=== PATIENT | female | born 1935 | race Caucasian/White ===

== ENCOUNTER → 2019-05-22 10:41 | Outpatient (BNVA) | payer MEDICARE, BC, SELFPAY | PROVIDERS: Family Provider Electrodiagnostic Medicine; PCP Electrodiagnostic Medicine; Visit Provider Anesthesiology | DX: M51.36 Other intervertebral disc degeneration, lumbar region (principal); Z79.891 Long term (current) use of opiate analgesic | CPT/HCPCS: 99213; 99214 ==

== ENCOUNTER → 2019-10-29 11:18 | Outpatient (BNVA) | payer MEDICARE, BC, SELFPAY | PROVIDERS: Family Provider Electrodiagnostic Medicine; PCP Electrodiagnostic Medicine; Visit Provider Nurse Practitioner | DX: M51.36 Other intervertebral disc degeneration, lumbar region (principal); Z79.891 Long term (current) use of opiate analgesic | CPT/HCPCS: 99213 ==

== ENCOUNTER → 2020-02-10 10:57 | Outpatient (BNVA) | payer MEDICARE, BC, SELFPAY | PROVIDERS: Family Provider Electrodiagnostic Medicine; PCP Electrodiagnostic Medicine; Visit Provider Electrodiagnostic Medicine | DX: Z20.828 Contact with and (suspected) exposure to other viral communicable diseases (principal) | CPT/HCPCS: 87635 ==

== ENCOUNTER → 2020-02-20 14:06 | Outpatient (BNVA) | payer MEDICARE, BC, SELFPAY | PROVIDERS: Family Provider Electrodiagnostic Medicine; PCP Electrodiagnostic Medicine; Visit Provider Anesthesiology | DX: M51.36 Other intervertebral disc degeneration, lumbar region (principal); M54.9 Dorsalgia, unspecified; Z79.891 Long term (current) use of opiate analgesic | CPT/HCPCS: 99212; 99214 ==

== ENCOUNTER 2020-03-30 15:52 | Outpatient (CLI) | payer MEDICARE, BC, SELFPAY ==
--- NOTE | 2020-03-30 16:10 | XR_ITS ---
WS: [id number] XR hip LT 2-3V wo/w pel* [id number] REASON FOR EXAM: LEFT HIP PAIN FINDINGS: No fracture or dislocation. No focal bony lesion. Significant spurring of the acetabulum and femoral head with narrowing of the joint space in the left hip. This has the same appearance as the left hip on a anime designer film from the CT of the abdomen 016. XR/XR hip LT 2-3V wo/w pel* [id number] IMPRESSION: Osteoarthropathy of the left hip as above.
== END 2020-03-30 15:53 | disposition home or self-care (01) ==
PROVIDERS: PCP Electrodiagnostic Medicine; Visit Provider Electrodiagnostic Medicine
DX: M16.12 Unilateral primary osteoarthritis, left hip (principal)
CPT/HCPCS: 73502

== ENCOUNTER → 2020-05-26 13:16 | Outpatient (BNVA) | payer MEDICARE, BC, SELFPAY | PROVIDERS: PCP Electrodiagnostic Medicine; Visit Provider Anesthesiology | DX: M51.36 Other intervertebral disc degeneration, lumbar region (principal); M54.9 Dorsalgia, unspecified; Z79.891 Long term (current) use of opiate analgesic | CPT/HCPCS: 99213 ==

== ENCOUNTER 2020-07-27 14:48 | Outpatient (CLI) | payer MEDICARE, BC, SELFPAY ==
--- NOTE | 2020-07-27 14:54 | CT_ITS ---
WS: [id number] CT HEAD NONCONTRAST HISTORY: MEMORY LOSS, HYPERTENSION DIABETES MELLITUS TECHNIQUE: Contiguous axial imaging performed through the brain in 2.5 mm imaging. Bone and soft tiss ue windows. All CT scans at [facility] use at least one of these dose optimization techniq ues: automated exposure control; mA and/or kV adjustment per patient size (includes targeted exams wh ere dose is matched to clinical indication); or iterative reconstruction. DLP: 992.04 mGycm COMPARISON: 03/13/2017 No acute intracranial hemorrhage, midline shift or mass effect. Mild atrophy is symmetric. Mild bilateral chronic microangiopathic ischemic disease. Small lacunar in farcts in the anterior capsules. Ventricles: Normal size with no hydrocephalus. Paranasal sinuses: As visualized are clear. Mastoid air cells: Well pneumatized. Calvarium and scalp: Skull is intact with no soft tissue edema or swelling. CT/CT head wo con* [id number] IMPRESSION: 1. No acute intracranial hemorrhage or edema. 2. Mild atrophy and mild chronic microvascular ischemic disease. Mild progress ion of chronic ischemic changes since 2017.
== END 2020-07-27 14:49 | disposition home or self-care (01) ==
LOC: RADWPI 14:50
PROVIDERS: PCP Electrodiagnostic Medicine; Visit Provider Electrodiagnostic Medicine
DX: R41.3 Other amnesia (principal); I10 Essential (primary) hypertension; E11.9 Type 2 diabetes mellitus without complications; I67.82 Cerebral ischemia; G31.9 Degenerative disease of nervous system, unspecified
CPT/HCPCS: 70450

== ENCOUNTER → 2020-07-28 13:11 | Outpatient (BNVA) | payer MEDICARE, BC, SELFPAY | PROVIDERS: PCP Electrodiagnostic Medicine; Visit Provider Nurse Practitioner | DX: M51.36 Other intervertebral disc degeneration, lumbar region (principal); Z79.891 Long term (current) use of opiate analgesic | CPT/HCPCS: 99213 ==

== ENCOUNTER 2020-10-17 09:02 | Emergency (ER) | payer MEDICARE, BC, SELFPAY ==
[2020-10-17 09:06] VITALS: BP 154/87; PULSE 89; RESP 14; TEMP 36.5; O2SAT 96; BMI 38.2
--- NOTE | 2020-10-17 09:14 | ED_ITS ---
HPI - Nausea/Vomiting/Diarrhea General: Chief complaint: Nausea/Vomiting/Diarrhea Stated complaint: NAUSEA Time Seen by Provider: 10/17/20 09:08 History of Present Illness: HPI Narrative: Patient arrives via ambulance with complaint of nausea since yesterday. Patient denies vomiting or bladder problems. Says she has had some diarrhea. She also states her sugars been doing okay. Denies fever chills or other recent illness. MD elicited complaint: nausea Onset (ago): day(s) Description of diarrhea: semi-solid Associated nausea: Yes Associated abdominal pain: No Exacerbating factors: other (The smell of food makes her feel sick) Associated symtoms: Reports no associated symptoms and nausea; Denies anxiety, change in vision, chest pain or headache(s) Review of Systems Const: Denies: fever(s), chills or body aches Eyes: Denies: change in vision or blurry vision ENMT: Denies: throat pain or nasal congestion Card: Denies: chest pain or dyspnea on exertion Resp: Denies: dyspnea, productive cough or non-productive cough GI: Reports: nausea Musc: Denies: extremity pain Skin/Breast: Denies: rash Neuro: Denies: headache(s) Psych: Denies: anxiety or depression [place]ton/Lymph: Denies: easy bruising PFSH ED PFSH: Medical History (Updated 10/17/20 @ 10:33 by RAFAEL Gutierrez) Anticoagulation adequate with anticoagulant therapy DDD (degenerative disc disease), lumbar Diabetes Dyslipidemia Encounter for long-term opiate analgesic use Essential hypertension half-way (current) use of opiate analgesic Morbid obesity Surgical History History of appendectomy History of back surgery History of carpal tunnel surgery of left wrist History of cholecystectomy History of hysterectomy History of knee replacement History of lobectomy of lung History of nephrectomy Family History Other CAD (coronary artery disease) Cancer Diabetes Stroke Social History (Updated 07/28/20 @ 13:20 by Jonna Schroeder LPN) Smoking and tobacco status: former smoker Second hand smoke exposure: No Alcohol intake: current Alcohol intake frequency: holidays/special occasions only Household members: spouse Marital status: History of recent travel: No Physical Exam Const: COMMON NORMALS: no acute distress, average body habitus and patient oriented x3 HENMT: COMMON NORMALS: normocephalic HEAD & SCALP: normal to inspection and normocephalic FACE & SINUS: normal facial exam Eye: COMMON NORMALS: conjunctivae normal GENERAL EYE: appearance normal, both eyes and all related structures CONJUNCTIVA: Yes conjunctivae normal Neck/C-Spine: COMMON NORMALS: no JVD Chest: COMMONS NORMALS: normal inspection of the chest Resp: COMMON NORMALS: normal respiratory effort and clear to auscultation bilaterally AUSCULTATION: clear to auscultation bilaterally Cardio: COMMON NORMALS: no JVD, regular rate and regular rhythm RATE: regular rate RHYTHM: regular rhythm OTHER: 1+ nonpitting edema worse on the right than the left lower extremity GI: COMMON NORMALS: Normal to inspection, nondistended, normoactive bowel sounds present Extremity: COMMON NORMALS: normal to inspection and full ROM Neuro: COMMON NORMALS: patient oriented x3 Course Vital Signs: Vital signs: Vital Signs Temperature 97.7 F 10/17/20 09:06 Pulse Rate 76 10/17/20 11:04 Respiratory Rate 18 10/17/20 11:04 Blood Pressure 160/85 10/17/20 11:04 Pulse Oximetry 91 10/17/20 11:04 MDM - Nausea/Vomiting/Diarrhea MDM Narrative: Medical decision making narrative: Patient arrived via ambulance complain nausea x1 day. Labs negative except shows mild UTI. Patient responded to Zofran and fluids. Patient discharged home follow-up with her doctor on Monday as scheduled. Lab Data: Labs: Lab Results 10/17/20 10/17/20 10/17/20 Range/Units 09:19 09:19 09:52 WBC 7.5 (4.0-10.0) 10^3/ uL RBC 4.85 (4.1-5.3) 10^6/u L Hgb 14.6 (11.5-15.3) g/dL Hct 45.4 (37.0-47.0) % MCV 93.6 (81-99) fL MCH 30.1 (28.0-34.0) pg MCHC 32.2 (30.0-36.0) g/dL RDW 13.4 (12.1-15.1) % Plt Count 209 (130-400) 10^3/c mm MPV 10.7 H (7.4-10.4) fL Neut % (Auto) 69.3 % Lymph % (Auto) 19.8 % [place] % (Auto) 7.9 % Eos % (Auto) 2.0 % Baso % (Auto) 0.7 % Neut # (Auto) 5.17 (1.8-7.7) 10^3/u L Lymph # (Auto) 1.5 (0.8-4.8) 10^3/u L [place] # (Auto) 0.6 (0.2-0.9) 10^3/u L Eos # (Auto) 0.2 (0.0-0.8) 10^3/u L Baso # (Auto) 0.1 (0.0-0.1) 10^3/u L Nucleated RBC % (a uto) 0 % Nucleated RBCs # 0.0 /100WBC Sodium 142 (136-145) mmol/L Potassium 4.2 (3.5-5.1) mmol/L Chloride 102 (98-107) mmol/L Carbon Dioxide 30 H (22-29) mmol/L Anion Gap 14.2 (5-19) BUN 22 (8-23) mg/dL Creatinine 1.0 H (0.5-0.9) mg/dL GFR Calculation Not Reportable Glucose 120 H (65-115) mg/dL Calculated Osmolal ity 299 H (285-295) mOsm/k g Calcium 10.0 (8.5-10.5) mg/dL Total Bilirubin 1.0 (0.15-1.2) mg/dL AST 27 (0-32) U/L ALT 10 (0-33) U/L Alkaline Phosphata se 120 H (35-105) IU/L Total Protein 6.9 (6.6-8.7) g/dL Albumin 4.2 (3.5-5.2) g/dL Globulin 2.7 (1.3-4.6) g/dL Lipase 17 (13-60) U/L Urine Color Straw (Yellow) Urine Appearance Clear (CLEAR) Urine pH 7 (5-7) Ur Specific Gravit y 1.005 (1.005-1.030) Urine Protein Neg (Negative) Urine Glucose (UA) Norm (Normal) Urine Ketones 1+ H (Negative) Urine Blood Neg (Negative) Urine Nitrate Negative (Negative) Urine Bilirubin Neg (Negative) Urine Urobilinogen Norm (Negative) mg/dL Ur Leukocyte Le ase 1+ H (Negative) Urine RBC None (0-2) /hpf Urine WBC 5-10 H (0-5) /hpf Ur Squamous Epith Cells 0-4 H (0-5) /hpf Amorphous Sediment Not Reportable Urine Bacteria 2+ H (NONE) /hpf Discharge Plan Discharge Patient Disposition: Home Clinical Impression: Acute UTI Condition: Stable Prescriptions: New Zofran 4 mg tablet 4 mg PO Q8H 3 Days Qty: 9 RF: 0 Macrobid 100 mg capsule 100 mg PO BID 5 Days Qty: 10 RF: 0 No Action furosemide 20 mg tablet 20 mg PO BID Qty: 180 RF: 3 amlodipine 10 mg tablet 10 mg PO QDAY RF: 0 levothyroxine [Synthroid] 100 mcg tablet 100 mcg PO QDAY RF: 0 losartan 50 mg tablet 50 mg PO QDAY RF: 0 multivitamin [Daily Multi-Vitamin] Tablet 1 tab PO QAM RF: 0 glucosamine sulfate [Glucosamine] 500 mg tablet 500 mg PO BID RF: 0 docusate sodium [Stool Softener] 100 mg capsule 100 mg PO BID RF: 0 albuterol sulfate [Proventil HFA] 90 mcg/actuation HFA aerosol inhaler 1 inh INHALATION ONCE PRNRF: 0 pregabalin [Lyrica] 75 mg capsule 75 mg PO BID 30 Days Qty: 60 RF: 2 tramadol 50 mg tablet 50 mg PO TID PRN (Reason: pain) 30 Days Qty: 90 RF: 2 metoprolol tartrate 50 mg tablet 50 mg PO BID Qty: 180 RF: 3 Eliquis 5 mg tablet 5 mg PO BID Qty: 180 RF: 3 Discharge Orders: Discharge ED (Routine); Ordered 10/17/20 Ordered By: Hany Alaniz Referrals: Deondre Lowery DO [Primary Care Provider] - Discharge Diet: Usual diet Discharge Activity: Increase activity as tolerated Patient Instructions: Urinary Tract Infection in Women (ED) Activity Restrictions/Additional Instructions: Follow-up with medical provider as directed. Take medications as prescribed. Return to the ER or your medical provider if condition worsens. Please read and understand discharge instructions. If any questions ask please. Coding Level of Care Code ED Box Printing Machine Operator for Chg Fwd Exam Comprehensive
[2020-10-17 09:53] LABS: Basophils # 0.1 10^3/uL (0.0-0.1); Basophils % 0.7 %; Eosinophils # 0.2 10^3/uL (0.0-0.8); Hematocrit 45.4 % (37.0-47.0); Hemoglobin 14.6 g/dL (11.5-15.3); Lymphocytes # 1.5 10^3/uL (0.8-4.8); Lymphocytes % 19.8 %; Mean Corpuscular HGB Conc 32.2 g/dL (30.0-36.0); Mean Corpuscular Hemoglobin 30.1 pg (28.0-34.0); Mean Corpuscular Volume 93.6 fL (81-99); Mean Platelet Volume 10.7 fL (7.4-10.4); Monocytes # 0.6 10^3/uL (0.2-0.9); Monocytes % 7.9 %; Neutrophils # 5.17 10^3/uL (1.8-7.7); Neutrophils % 69.3 %; Nucleated Red Blood Cells % 0 %; Platelet Count 209 10^3/cmm (130-400); Red Blood Count 4.85 10^6/uL (4.1-5.3); Red Cell Distribution Width 13.4 % (12.1-15.1); White Blood Count 7.5 10^3/uL (4.0-10.0)
[2020-10-17 10:08] LABS: Specific Gravity, Urine 1.005 (1.005-1.030); Urine Appearance Clear (CLEAR); Urine Color Straw (Yellow); pH Urine 7 (5-7)
[2020-10-17 10:09] LABS: Add Urine Culture? Yes; Add Urine Microscopic? YES; Bacteria Urine 2+ /hpf; Bilirubin Urine Neg (Negative); Blood Urine Neg (Negative); Glucose Urine UA Norm (Normal); Ketones Urine 1+ (Negative); Leukocyte Esterase Urine 1+ (Negative); Nitrate Urine Negative (Negative); Protein Urine Neg (Negative); Squamous Epithelial Cell Urine 0-4 /hpf (0-5); Urobilinogen Urine Norm (Negative)
[2020-10-17 10:14] LABS: Alanine Aminotransferase 10 U/L (0-33); Albumin Level 4.2 g/dL (3.5-5.2); Alkaline Phosphatase 120 IU/L (35-105); Anion Gap 14.2 (5-19); Aspartate Amino Transferase 27 U/L (0-32); Blood Urea Nitrogen 22 mg/dL (8-23); Carbon Dioxide 30 mmol/L (22-29); Chloride 102 mmol/L (98-107); Globulin 2.7 g/dL (1.3-4.6); Glucose 120 mg/dL (65-115); Lipase 17 U/L (13-60); Osmolality Calculated 299 mOsm/kg (285-295); Potassium 4.2 mmol/L (3.5-5.1); Sodium 142 mmol/L (136-145); Total Protein 6.9 g/dL (6.6-8.7)
[2020-10-17] MEDS: sodium chloride 0.9% 500 ML IV (10:28)
[2020-10-17] MEDS: ondansetron 2 mg/ML SDV 2 mL 4 MG IVP (10:28)
[2020-10-17] MEDS: nitrofurantoin SR (BID) 100 mg Capsule PO (10:30)
[2020-10-17 10:31] VITALS: BP 160/85; PULSE 73; RESP 18; O2SAT 94
[2020-10-17 11:04] VITALS: BP 160/85; PULSE 76; RESP 18; O2SAT 91
== END 2020-10-17 11:05 | disposition home or self-care (01) ==
PROVIDERS: Emergency Provider Nurse Practitioner Family; PCP Electrodiagnostic Medicine
DX: N39.0 Urinary tract infection, site not specified (principal); Z79.01 Long term (current) use of anticoagulants; E11.9 Type 2 diabetes mellitus without complications; E78.5 Hyperlipidemia, unspecified; I10 Essential (primary) hypertension; Z87.891 Personal history of nicotine dependence
CPT/HCPCS: 80053; 81001; 83690; 85025; 87077; 87086; 87186; 96361; 96374; 99283; J2405; J7040

== ENCOUNTER → 2020-10-22 09:51 | Outpatient (BNVA) | payer MEDICARE, BC, SELFPAY | PROVIDERS: PCP Electrodiagnostic Medicine; Visit Provider Nurse Practitioner | DX: M51.36 Other intervertebral disc degeneration, lumbar region (principal); M54.9 Dorsalgia, unspecified; E66.01 Morbid (severe) obesity due to excess calories; Z79.891 Long term (current) use of opiate analgesic | CPT/HCPCS: 99213 ==

== ENCOUNTER → 2021-01-07 09:03 | Outpatient (BNVA) | payer MEDICARE, BC, SELFPAY | PROVIDERS: PCP Electrodiagnostic Medicine; Visit Provider Anesthesiology | DX: M54.41 Lumbago with sciatica, right side (principal); M51.36 Other intervertebral disc degeneration, lumbar region; Z79.891 Long term (current) use of opiate analgesic | CPT/HCPCS: 99213 ==

== ENCOUNTER → 2021-01-13 12:52 | Outpatient (BNVA) | payer MEDICARE, BC, SELFPAY | PROVIDERS: PCP Electrodiagnostic Medicine; Referring Provider Electrodiagnostic Medicine; Visit Provider Specialist | DX: G31.84 Mild cognitive impairment of uncertain or unknown etiology (principal); E11.40 Type 2 diabetes mellitus with diabetic neuropathy, unspecified; M51.36 Other intervertebral disc degeneration, lumbar region; Z87.891 Personal history of nicotine dependence | CPT/HCPCS: 96116; 99204 ==

== ENCOUNTER → 2021-11-04 14:56 | Outpatient (BNVA) | payer MEDICARE, BC, SELFPAY | PROVIDERS: PCP Electrodiagnostic Medicine; Visit Provider Internal Medicine | DX: I48.91 Unspecified atrial fibrillation (principal); E11.9 Type 2 diabetes mellitus without complications; E78.5 Hyperlipidemia, unspecified; Z79.01 Long term (current) use of anticoagulants; R06.00 Dyspnea, unspecified; Z79.84 Long term (current) use of oral hypoglycemic drugs | CPT/HCPCS: 99213; 99214 ==

== ENCOUNTER 2022-03-29 14:20 | Inpatient (IN) | payer MEDICARE, BC, SELFPAY ==
[2022-03-29] VITALS (10 sets, daily range): BP systolic 120–143; BP diastolic 47–93; PULSE 50–74; RESP 13–20; TEMP 36.6–37.5; O2SAT 96–100; BMI 35.7
--- NOTE | 2022-03-29 14:37 | ECG_ITS ---
[facility] Test Date: 2022-03-29 Pat Name: Whit Orozco Department: Room: Gender: Female L[place]eller: : 1935 Requested By: Phoenix Hurd Order Number: [id number] Shante MD: Lashon Pantoja M.D. Measurements Intervals [place] Rate: 63 P: 0 ME: 0 QRS: 230 QRSD: 93 T: 65 QT: 413 QTc: 424 Interpretive Statements ATRIAL FIBRILLATION POSSIBLE RIGHT VENTRICULAR HYPERTROPHY POSSIBLE ANTERIOR MYOCARDIAL INFARCTION , PROBABLY OLD Compared to ECG 05/26/2018 16:21:13 No significant changes Electronically Signed On 03-29-2022 18:49:08 SAND TEMPERER by Lashon Pantoja M.D. [id number]
--- NOTE | 2022-03-29 14:37 | XR_ITS ---
WS: [id number] Portable AP upright chest, 03/29/2022 Clinical Data: Chest pain Comparison: Portable chest, 05/26/2018 Findings: The heart is enlarged and the pulmonary vascularity is congested. There are opacities overl alisha the right lung which may represent pleural fluid and/or atelectasis. There is opacification at t he right lung base which probably represents pleural fluid. There may also be a left pleural effusion . No pneumothorax is noted. There is a calcification overlying the right humeral head possibly an enc hondroma or bone infarct. There are surgical clips overlying the left hilum and also the left upper q uadrant. Monitor leads are on the chest wall. XR/XR chest 1V portable [id number] Impression: Cardiomegaly with bilateral pleural effusions and pulmonary vascular congestion most consistent with congestive heart failure.
--- NOTE | 2022-03-29 14:46 | W.ED.SOB ---
HPI - SOB/Dyspnea General: Chief Complaint: Shortness of Breath/Dyspnea Stated Complaint: Sebastián sent for chest pain Time Seen by Provider: 03/29/22 14:36 Source: patient Mode of arrival: ambulatory History of Present Illness: HPI Narrative: 86-year-old female who presents emergency room with episodes of chest discomfort. She focuses more on the fact that she is significantly short of breath. Patient has had previous lung resections because of mets from renal cell CA. She is normally on 2 L by nasal cannula and when she arrived here she was hypoxic with rebreather she began to do better we are able to titrate her back down to nasal cannula at 4 L. 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) Onset (ago): day(s) (3) Timing: constant Severity: moderate Exacerbating factors: nothing Relieving factors: nothing Known history of: congestive heart failure Associated symptoms: Reports chest congestion, chest pain and orthopnea (Chronic); Deny abdominal pain, cough, diaphoresis, dizziness, extremity pain, fever(s), hemoptysis, lightheadedness, myalgias, nausea, palpitations, paresthesias, polydipsia, polyuria, sense of impending doom, syncope or vomiting Treatment prior to arrival: none Review of Systems Const: Reports: fatigue; Denies: fever(s), chills, malaise or diaphoresis ENMT: Denies: throat pain, ear or mastoid pain, nasal discharge or nasal congestion Card: Reports: chest pain, edema, swelling of feet/ankles and orthopnea (Chronic); Denies: palpitations, lightheadedness or syncope Resp: Reports: dyspnea, non-productive cough and chest congestion; Denies: hemoptysis GI: Denies: abdominal pain, nausea or vomiting : Denies: flank pain, difficulty voiding, dysuria, urinary frequency or urinary urgency Musc: Denies: neck pain, back pain or extremity pain Skin/Breast: Denies: rash or pruritus Neuro: Denies: dizziness Endo: Denies: polyuria or polydipsia PFS ED PFSH: Medical History (Updated 04/05/22 @ 06:04 by Phoenix Cotto DO) Anticoagulation adequate with anticoagulant therapy DDD (degenerative disc disease), lumbar Diabetes Dyslipidemia Encounter for long-term opiate analgesic use Essential hypertension 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 Morbid obesity Surgical History History of appendectomy History of back surgery History of carpal tunnel surgery of left wrist History of cholecystectomy History of hysterectomy History of knee replacement History of lobectomy of lung History of nephrectomy Family History Other CAD (coronary artery disease) Cancer Diabetes Stroke Social History Smoking and tobacco status: former smoker Second hand smoke exposure: No Alcohol intake: current Alcohol intake frequency: holidays/special occasions only Household members: spouse Marital status: History of recent travel: No Physical Exam Const: GENERAL APPEARANCE: cooperative and comfortable ORIENTATION/CONSCIOUSNESS: Yes awake, Yes oriented to person, Yes oriented to place and Yes oriented to time HENMT: COMMON NORMALS: normocephalic, atraumatic and hearing grossly normal bilaterally HEAD & SCALP: normocephalic and atraumatic Resp: COMMON NORMALS: normal respiratory effort, No retractions and No use of accessory muscles AUSCULTATION: diminished lung sounds Cardio: COMMON NORMALS: regular rate, regular rhythm and No murmurs present (Cardio) RATE: regular rate RHYTHM: regular rhythm GI: COMMON NORMALS: Soft to palpation and No hepatosplenomegaly present AUSCULTATION: Yes normoactive bowel sounds PALPATION: Yes Soft to palpation, No Tenderness to palpation present (GI), No Guarding due to palpation present (GI) and Yes No hepatosplenomegaly present Extremity: COMMON NORMALS: normal to inspection, capillary refill normal, no clubbing, cyanosis or edema, no calf tenderness and no pedal edema Neuro: SENSORIUM/ORIENTATION: Yes oriented to person, Yes oriented to place and Yes oriented to time Skin: COMMON NORMALS: no rashes or lesions noted GENERAL SKIN EXAM: no rashes or lesions noted Course Vital Signs: Vital signs: Vital Signs Temperature 98.1 F 04/05/22 03:40 Pulse Rate 70 04/05/22 03:40 Respiratory Rate 18 04/05/22 03:40 Blood Pressure 115/64 04/05/22 03:40 Pulse Oximetry 92 04/05/22 03:40 Oxygen Delivery Me thod 04/05/22 02:41 Oxygen Flow Rate 2 04/05/22 02:41 Fraction of Inspir ed Oxygen 25 03/31/22 05:25 MDM - SOB/Dyspnea Medical Decision Making Labs imaging and EKG reviewed no acute EKG changes. Decompensated congestive heart failure with hypercapnia. Acute on chronic kidney injury as well. Patient has been started on BiPAP. Discussed with hospitalist orders written. Medical Records I reviewed the patient's medical records. Lab Data I reviewed the patient's lab results. 03/29/22 14:27 03/29/22 14:27 Labs/Radiology: Radiology Impressions Chest X-Ray 04/04/22 05:00 IMPRESSION: Mildly improved exam from 3 days ago. Laboratory Results WBC 7.4 10^3/uL (4.0-10.0) 03/29/22 14:27 RBC 3.86 10^6/uL (4.1-5.3) L 03/29/22 14:27 Hgb 11.6 g/dL (11.5-15.3) 03/29/22 14:27 Hct 38.3 % (37.0-47.0) 03/29/22 14:27 MCV 99.2 fl (81-99) H 03/29/22 14:27 MCH 30.1 pg (28.0-34.0) 03/29/22 14:27 MCHC 30.3 g/dL (30.0-36.0) 03/29/22 14:27 RDW 14.6 % (12.1-15.1) 03/29/22 14:27 Plt Count 193 10^3/cmm (130-400) 03/29/22 14:27 MPV 12.0 fL (7.4-10.4) H 03/29/22 14:27 Neut % (Auto) 69.5 % 03/29/22 14:27 Lymph % (Auto) 16.7 % 03/29/22 14:27 [place] % (Auto) 10.4 % 03/29/22 14:27 Eos % (Auto) 2.4 % 03/29/22 14:27 Baso % (Auto) 0.5 % 03/29/22 14:27 Neut # (Auto) 5.11 10^3/uL (1.8-7.7) 03/29/22 14:27 Lymph # (Auto) 1.2 10^3/uL (0.8-4.8) 03/29/22 14:27 [place] # (Auto) 0.8 10^3/uL (0.2-0.9) 03/29/22 14:27 Eos # (Auto) 0.2 10^3/uL (0.0-0.8) 03/29/22 14:27 Baso # (Auto) 0.0 10^3/uL (0.0-0.1) 03/29/22 14:27 Nucleated RBC % (auto) 0 % 03/29/22 14: Nucleated RBCs # 0.0 /100WBC 03/29/22 14:27 Specimen Type Arterial 03/29/22 16:58 Sample Site Radial, left 03/29/22 16:58 ABG pH 7.33 (7.35-7.45) L 03/29/22 16:58 ABG pCO2 77.1 mmHg (35-45) H* 03/29/22 16:58 ABG pO2 84.2 mmHg (80.0-100.0) 03/29/22 16:58 ABG HCO3 40.3 mmol/L (22-26) H 03/29/22 16:58 ABG O2 Saturation 96.7 03/29/22 16:58 ABG Base Excess 11.7 mmol/L (-2.0-2.0) H 03/29/22 16:58 Peyman Test Pos 03/29/22 16:58 A-a O2 Gradient 14.0 mmHg (5-10) H 03/29/22 16:58 Hematocrit 33.6 % (37-47) L 03/29/22 16:58 Hgb O2 Saturation 94.2 % (95-100) L 03/29/22 16:58 Carboxyhemoglobin 1.5 %THgb (0.4-20.1) 03/29/22 16:58 Methemoglobin 1.1 % (0.4-1.5) 03/29/22 16:58 Total Hemoglobin 11.0 g/dL (12-16) L 03/29/22 16:58 Sodium 145.0 mmol/L (131-143) H 03/29/22 16:58 Potassium 3.4 mmol/L (3.5-5.0) L 03/29/22 16:58 Glucose 105.0 mg/dL (70-115) 03/29/22 16:58 Ionized Calcium 1.2 mmol/L (1.1-1.4) 03/29/22 16:58 O2 Delivery Device Bipap 03/29/22 16:58 O2 Liters/Min 4.0 % 03/29/22 15:20 FiO2 40.0 % 03/29/22 16:58 Metal Tester ID Gd 03/29/22 16:58 Sodium 144 mmol/L (136-145) 03/29/22 14:27 Potassium 4.0 mmol/L (3.5-5.1) 03/29/22 14:27 Chloride 97 mmol/L (98-107) L 03/29/22 14:27 Carbon Dioxide 36 mmol/L (22-29) H 03/29/22 14:27 Anion Gap 15.0 (5-19) 03/29/22 14:27 BUN 22 mg/dL (8-23) 03/29/22 14:27 Creatinine 1.2 mg/dL (0.5-0.9) H 03/29/22 14:27 GFR Calculation Not Reportable 03/29/22 14:27 Glucose 111 mg/dL (65-115) 03/29/22 14:27 Calculated Osmolality 302 mOsm/kg (285-295) H 03/29/22 14:27 Calcium 9.8 mg/dL (8.5-10.5) 03/29/22 14:27 Total Bilirubin 0.7 mg/dL (0.15-1.2) 03/29/22 14:27 AST 21 U/L (0-32) 03/29/22 14:27 ALT 9 U/L (0-33) 03/29/22 14:27 Alkaline Phosphatase 101 U/L (35-105) 03/29/22 14:27 Troponin T Baseline 31 ng/L (0-10) H 03/29/22 14:27 Troponin T 120 Minute 23.31 ng/L (0-10) H 03/29/22 16:50 Delta Troponin T -7.69 ABS# (0-10) L 03/29/22 16:50 NT-Pro-B Natriuret Pep 7924 pg/mL (0-450) H 03/29/22 14:27 Total Protein 6.9 g/dL (6.6-8.7) 03/29/22 14:27 Albumin 4.2 g/dL (3.5-5.2) 03/29/22 14:27 Globulin 2.7 g/dL (1.3-4.6) 03/29/22 14:27 Critical Care Time Critical Care Time: Critical Care Time: Yes Total Critical Care Time: 40 Attestation: The high probability of a clinically significant, sudden or life threatening deterioration of the patient's cardiovascular respiratory system(s) required my full and direct attention, intervention and personal management. The critical care time is as shown. This time is in addition to time spent performing any reported procedures but includes the following: [x] Data and vital sign review and interpretation [x] Patient assessment, examination and intervention [x] Documentation [x] Medication orders and management Discharge Plan Discharge Patient Disposition: Admitted As Inpatient Admit Provider: London Xiao Clinical Impression: Respiratory failure with hypoxia and hypercapnia, Congestive heart failure, Essential hypertension, Morbid obesity, Anticoagulation adequate with anticoagulant therapy, Diabetes Condition: Stable Coding Level of Care Code ED Superintendent Fish Hatchery for David Fwbritany Exam Detailed
[2022-03-29 14:54] LABS: Basophils % 0.5 %; Eosinophils # 0.2 10^3/uL (0.0-0.8); Eosinophils % 2.4 %; Hematocrit 38.3 % (37.0-47.0); Hemoglobin 11.6 g/dL (11.5-15.3); Lymphocytes # 1.2 10^3/uL (0.8-4.8); Lymphocytes % 16.7 %; Mean Corpuscular HGB Conc 30.3 g/dL (30.0-36.0); Mean Corpuscular Hemoglobin 30.1 pg (28.0-34.0); Mean Corpuscular Volume 99.2 fl (81-99); Monocytes # 0.8 10^3/uL (0.2-0.9); Monocytes % 10.4 %; Neutrophils # 5.11 10^3/uL (1.8-7.7); Neutrophils % 69.5 %; Nucleated Red Blood Cells % 0 %; Platelet Count 193 10^3/cmm (130-400); Red Blood Count 3.86 10^6/uL (4.1-5.3); Red Cell Distribution Width 14.6 % (12.1-15.1); White Blood Count 7.4 10^3/uL (4.0-10.0)
--- NOTE | 2022-03-29 15:06 | PC.PHAR ---
pts daughter verified pts medications-rx filled 03/06/22 90d/s for eliquis 5mg daily from pts daughter states pt just takes 5mg qam-
[2022-03-29 15:18] LABS: Troponin(5th) Baseline 31 ng/L (0-10)
[2022-03-29 15:32] LABS: ABG PH Result 7.29 (7.35-7.45); Base Excess ABG 9.9 mmol/L (-2.0-2.0); Blood Gas Allen Test Pos; Blood Gas Sample Type Arterial; Carboxyhemoglobin 1.4 %THgb (0.4-20.1); HCO3 ABG 39.6 mmol/L (22-26); Ionized Calcium Level - ABG 1.3 mmol/L (1.1-1.4); Oxygen Saturation ABG 98.3; Potassium Level - ABG 3.4 mmol/L (3.5-5.0); Total Hemoglobin 12.4 g/dL (12-16)
[2022-03-29 15:33] LABS: Blood Gas Sample Site Radial, right
[2022-03-29 15:34] LABS: Alveolar-Arterial Oxygen Gradi 6.4 mmHg (5-10); Blood Gas Operator Identificat MONRO; Oxygen Device NC
[2022-03-29] MEDS: aspirin 81 mg Chew Tablet 324 MG PO (15:45)
[2022-03-29] MEDS: FUROsemide 10 mg/mL SDV 4mL 40 MG IVP (15:47)
[2022-03-29 15:55] LABS: Alanine Aminotransferase 9 U/L (0-33); Albumin Level 4.2 g/dL (3.5-5.2); Alkaline Phosphatase 101 U/L (35-105); Aspartate Amino Transferase 21 U/L (0-32); Blood Urea Nitrogen 22 mg/dL (8-23); Calcium 9.8 mg/dL (8.5-10.5); Carbon Dioxide 36 mmol/L (22-29); Chloride 97 mmol/L (98-107); Globulin 2.7 g/dL (1.3-4.6); Glucose 111 mg/dL (65-115); NT Pro B Type Natriuretic Pept 7924 pg/mL (0-450); Osmolality Calculated 302 mOsm/kg (285-295); Sodium 144 mmol/L (136-145); Total Bilirubin 0.7 mg/dL (0.15-1.2); Total Protein 6.9 g/dL (6.6-8.7)
--- NOTE | 2022-03-29 16:49 | ECG_ITS ---
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 Measurements Intervals [place] Rate: 63 P: 0 [place]: 0 QRS: 251 QRSD: 94 T: 61 QT: 403 QTc: 414 Interpretive Statements ATRIAL FIBRILLATION RIGHT VENTRICULAR HYPERTROPHY POSSIBLE ANTERIOR MYOCARDIAL INFARCTION , PROBABLY OLD Compared to ECG 03/29/2022 15:17:00 No significant changes Electronically Signed On 03-29-2022 18:51:07 RN INTERNAL MEDICINE by Lashon Pantoja M.D. [id number]
[2022-03-29 17:12] LABS: ABG PCO2 77.1 mmHg (35-45); ABG PH Result 7.33 (7.35-7.45); Arterial Blood Gas Hematocrit 33.6 % (37-47); Base Excess ABG 11.7 mmol/L (-2.0-2.0); Blood Gas Allen Test Pos; Blood Gas Operator Identificat GD; Blood Gas Sample Site Radial, left; Blood Gas Sample Type Arterial; Carboxyhemoglobin 1.5 %THgb (0.4-20.1); HCO3 ABG 40.3 mmol/L (22-26); HGB O2 Sat 94.2 % (95-100); Ionized Calcium Level - ABG 1.2 mmol/L (1.1-1.4); Methemoglobin 1.1 % (0.4-1.5); Oxygen Device BIPAP; Oxygen Saturation ABG 96.7; PO2 ABG 84.2 mmHg (80.0-100.0); Potassium Level - ABG 3.4 mmol/L (3.5-5.0)
--- NOTE | 2022-03-29 17:22 | USCV_ITS ---
Whit Orozco Age: 86 Gender: F : 1935 Exam Date: 03/29/2022 17:34 Ordering Phys: London Xiao MD Technologist: PAGE [place] [facility] [place]: SHORTNESS OF BREATH BP: 125 / 64 HR: 66 Rhythm: Atrial fibrillation Technical Quality: Suboptimal MEASUREMENTS (Male / Female) Normal Values 2D ECHO LVOT Diameter 2.0 cm LV Ejection Fraction MOD 2C 70.3 % LV Ejection Fraction 2C AL 73.2 % LA Diameter 3.0 cm LA Width 3.7 cm RA Width 4.0 cm RA Height 5.4 cm Aorta at Sinotubular Diameter 2.3 cm M-MODE Aortic Annulus Diameter 3.2 cm LA Ao Ratio MM 0.9 MV E Point Septal Separation 0.4 cm DOPPLER AV Peak Velocity 121.0 cm/s LVOT Peak Velocity 93.0 cm/s AV Area Cont Eq vti 2.4 cm squared AV Area Cont Eq pk 2.4 cm squared MV Peak Velocity 134.0 cm/s MV Area PHT 4.2 cm squared MV E' Velocity 68.5 cm/s Mitral E to MV E' Ratio 10.5 Mitral E to LV E' Lateral Ratio 10.2 Mitral E to LV E' Septal Ratio 10.8 TR Peak Velocity 278.1 cm/s TR Peak Gradient 30.9 mmHg TR Mean Velocity 263.6 cm/s TR Mean Gradient 30.2 mmHg TR Velocity Time Integral 127.4 cm TV Peak E Velocity 65.0 cm/s Right Atrial Pressure 8.0 mmHg Pulmonary Artery Systolic Pressu 38.9 mmHg PV Peak Velocity 97.0 cm/s RV Acceleration Time 0.1 s RV Ejection Time 0.4 s RV AcT/ET 0.3 FINDINGS Left Ventricle Normal left ventricular size, systolic function and wall thickness, with no regional wall motion abnormalities. Rhythm precludes evaluation of diastolic function. Left ventricular ejection fraction is estimated at 50-55 %. Right Ventricle Normal right ventricular size and systolic function. Mild pulmonary hypertension, RVSP 38.9 mmHg. Right Atrium Moderately increased right atrial size. Left Atrium Moderately increased left atrial size. Mitral Valve Structurally normal mitral valve. Trace mitral valve regurgitation. Aortic Valve Structurally normal trileaflet aortic valve. Trace aortic valve regurgitation. No aortic valve stenosis. Tricuspid Valve Structurally normal tricuspid valve. Trace to mild tricuspid valve regurgitation. Pulmonic Valve Structurally normal pulmonic valve. Trace pulmonary valve regurgitation. Pericardium Normal pericardium without effusion. Aorta Normal ascending aorta dimension. IVC The inferior vena cava appears normal. CONCLUSIONS Normal left ventricular size, systolic function and wall thickness, with no regional wall motion abnormalities. Rhythm precludes evaluation of diastolic function. Left ventricular ejection fraction is estimated at 50-55 %. Normal right ventricular size and systolic function. Mild pulmonary hypertension, RVSP 38.9 mmHg. Moderately increased right atrial size. Moderately increased left atrial size. Structurally normal mitral valve. Trace mitral valve regurgitation. Structurally normal trileaflet aortic valve. Trace aortic valve regurgitation. No aortic valve stenosis. There are no prior echocardiogram studies to compare. Dr. De Alarcon MD (Electronically Signed) Final Date: 30 March 2022 09:34 S
--- NOTE | 2022-03-29 17:32 | P.HP_ITS ---
Providers/Chief Complaint Primary Care Provider: Deondre Lowery DO Chief Complaint: Sebastián sent for chest pain History of Present Illness Whit Orozco is a 86 year old female with past medical history of hypertension and diabetes paroxysmal A. fib dyslipidemia morbid obesity dementia, hypothyroidism, history of lobectomy, was brought in from home with chief complaint of worsening shortness of breath started this Monday, according to the daughter who provided the history over the phone, she has been complaining of difficulty catching breath, was having difficulty with even is speaking a sentence, has been extremely drowsy in the last couple of days, was also complaining of chest pain with inspiration, she denied any fever, chills, cough, nausea vomiting abdominal. X-ray chest done in the ER: Has shown bilateral pulmonary vascular congestion cardiomegaly, bilateral pleural effusion right greater than left EKG has shown A. fib with slow ventricular response Pertinent labs: WBC 7.4, H&H 11/38 PLT : 193 , serum sodium 144 potassium :4 , BUN and serum creatinine: 22/1.2 , Baseline troponin 31 proBNP 7924 ABG : pH 7.29, PCO2 82, PO2 108 , 40% FiO2 , repeat ABG appreciated. Patient received Lasix , aspirin 325 and was placed on BiPAP in the ER. Review of Systems General: Reports: ROS unobtainable due to mental status Medications/Allergies Home Medications Medication Instructions Recorded Confirmed Last Taken Type amlodipine 10 mg tablet 10 mg PO QAM 05/22/19 03/29/22 03/29/22 10:30 History docusate sodium 100 mg capsule 200 mg PO QAM 05/22/19 03/29/22 03/29/22 History (Stool Softener) glucosamine sulfate 500 mg tablet 500 mg PO BID 05/22/19 03/29/22 03/29/22 History (Glucosamine) levothyroxine 100 mcg tablet 100 mcg PO QAM 05/22/19 03/29/22 03/29/22 History (Synthroid) losartan 50 mg tablet 50 mg PO QAM 05/22/19 03/29/22 03/29/22 History multivitamin (Daily Multi-Vitamin 1 tab PO QAM 05/22/19 03/29/22 03/29/22 History tablet) albuterol sulfate 90 mcg/actuation 2 puff inhalation Q4H PRN 10/29/19 03/29/2203/27/22 History aerosol inhaler (ProAir HFA) Shortness Of Breath cholecalciferol (vitamin D3) 50 50 mcg PO QAM 10/22/20 03/29/22 03/29/22 History mcg (2,000 unit) capsule oxygen-air delivery systems 01/07/21 03/29/22 Unknown History hydrocodone 5 mg-acetaminophen 325 1 tab PO Q4H PRN Pain 01/13/21 03/29/22 Unknown History mg tablet furosemide 20 mg tablet 20 mg PO BID #180 tabs 06/16/21 03/29/22 03/29/22 Rx metoprolol tartrate 50 mg tablet 50 mg PO BID #180 tabs 08/11/21 03/29/22 03/29/22 Rx apixaban 5 mg tablet (Eliquis) 5 mg PO QAM 03/29/22 03/29/22 03/29/22 History meloxicam 7.5 mg tablet 7.5 mg PO QAM 03/29/22 03/29/22 03/29/22 History pregabalin 100 mg capsule 100 mg PO BID 03/29/22 03/29/22 03/29/22 History tramadol 50 mg tablet 50 mg PO BID 03/29/22 03/29/22 03/29/22 History Allergies Allergy/AdvReac Type Severity Reaction Status Date / Time No Known Allergies Allergy Verified 03/29/22 14:56 PFSH Acute PFSH: Medical History (Updated 03/29/22 @ 17:52 by London Xiao MD) Anticoagulation adequate with anticoagulant therapy DDD (degenerative disc disease), lumbar Diabetes Dyslipidemia Encounter for long-term opiate analgesic use Essential hypertension 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 Morbid obesity Surgical History History of appendectomy History of back surgery History of carpal tunnel surgery of left wrist History of cholecystectomy History of hysterectomy History of knee replacement History of lobectomy of lung History of nephrectomy Family History Other CAD (coronary artery disease) Cancer Diabetes Stroke Social History Smoking and tobacco status: former smoker Second hand smoke exposure: No Alcohol intake: current Alcohol intake frequency: holidays/special occasions only Household members: spouse Marital status: History of recent travel: No Vitals/I&O/Wt Last Vital Signs Temp 97.8 F 03/29/22 14:31 Pulse 71 03/29/22 16:03 Resp 16 03/29/22 14:36 BP 143/88 03/29/22 14:36 Pulse Ox 96 03/29/22 16:03 O2 Del Method 03/29/22 14:36 O2 Flow Rate 4 03/29/22 14:36 FiO2 40 03/29/22 16:03 Weight last 48 hrs Weight 97.522 kg Physical Exam Narrative: Extremely drowsy, Resp: EFFORT & INSPECTION: Yes symmetric chest movement OTHER: Diminished air entry bilaterally, bilateral basal crackles Cardio: COMMON NORMALS: Peripheral pulses 2+ throughout PERIPHERAL PULSES: Peripheral pulses 2+ throughout OTHER: Irregularly irregular rhythm, S1-S2 variable intensity GI: COMMON NORMALS: Normal to inspection, nondistended, normoactive bowel sounds present, Soft to palpation, non-tender, No hepatosplenomegaly present and no masses AUSCULTATION: Yes normoactive bowel sounds PALPATION: Yes Soft to palpation and Yes No hepatosplenomegaly present RECTAL EXAM: deferred Extremity: NARRATIVE EXTREMITY EXAM: 2+ pitting edema in both the lower EXTR Data 03/29/22 14:27 03/29/22 14:27 A&P Assessment and plan (1) Diabetes: (2) Morbid obesity: (3) Essential hypertension: (4) Decompensated heart failure: (5) Hypothyroidism: (6) Mild cognitive impairment with memory loss: (7) History of atrial fibrillation: (8) Respiratory failure with hypoxia and hypercapnia: (9) Altered mental status: Plan 86 year old female with past medical history of hypertension and diabetes paroxysmal A. fib dyslipidemia morbid obesity dementia, hypothyroidism, history of lobectomy, was brought in from home with chief complaint of worsening shortness of breath started this Monday, according to the daughter who provided the history over the phone, she has been complaining of difficulty catching breath, was having difficulty with even is speaking a sentence, has been extrem jane drowsy in the last couple of days, was also complaining of chest pain with inspiration, she denied any fever, chills, cough, nausea vomiting abdominal. Assessment: Respiratory failure with hypoxia and hypercapnia secondary to decompensated heart failure Decompensated heart failure Acute metabolic encephalopathy secondary to hypercapnia History of hypertension History of diabetes History of paroxysmal atrial fibrillation History of hypothyroidism History of morbid obesity Likely CKD versus KALANI on CKD Plan: Follow 2D echo Blood culture Procalcitonin Follow TSH Monitor intake output charting Monitor daily weight K>4.MG>2 Continue Lasix 60 IV twice daily Continue metoprolol Therapeutic anticoagulation with Lovenox Continue levothyroxine Continue amlodipine LDDSI, monitor fingerstick glucose, Monitor BMP Monitor ABG Monitor x-ray chest Avoid nephrotoxic's CODE STATUS: Full code DVT prophylaxis: On therapeutic Lovenox Attestations Medical Necessity Statement*: Patient needs to be in hospital for management of respiratory failure.Anticipated length of stay greater than 2 midnights Time Spent in Patient Care: Greater than 35 minutes (>than 50% of time spent in counselling and/or direct pt care on unit) . Critical Care Time: The high probability of a clinically significant, sudden or life threatening deterioration of the patient's [] system(s) required my full and direct attention, intervention and personal management. The critical care time is as shown. This time is in addition to time spent performing any reported procedures but includes the following: [x] Data and vital sign review and interpretation [x] Patient assessment, examination and intervention [x] Documentation [x] Medication orders and management Critical Care Time (min): 45 Coding Level of Care Code Acute Karate Instructor for Chg Fwd Exam Expanded Problem Focused Diagnoses Diabetes E11.9 Morbid obesity E66.01 Essential hypertension I10 Decompensated heart failure I50.9 Hypothyroidism E03.9 Mild cognitive impairment with memory loss G31.84 History of atrial fibrillation Z86.79 Respiratory failure with hypoxia and hypercapnia J96.91; J96.92 Altered mental status R41.82
[2022-03-29 17:33] LABS: Troponin 5 2HR 23.31 ng/L (0-10)
[2022-03-29 17:42] LABS: Troponin 5 2HR Delta -7.69 ABS# (0-10)
[2022-03-29 21:33] LABS: Troponin 5 6HR 27.46 ng/L (0-10); Troponin 5 6HR Delta -3.54 ng/L (0-12)
--- NOTE | 2022-03-29 22:28 | ECG_ITS ---
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 Measurements Intervals [place] Rate: 74 P: 0 MA: 0 QRS: -38 QRSD: 92 T: 37 QT: 391 QTc: 435 Interpretive Statements ATRIAL FIBRILLATION LEFT AXIS DEVIATION [QRS AXIS < -30] PATTERN CONSISTENT WITH PULMONARY DISEASE Compared to ECG 03/29/2022 16:49:54 Left-axis deviation now present Right ventricular hypertrophy no longer present Myocardial infarct finding no longer present Electronically Signed On 03-30-2022 16:17:53 GRAIN I FARMWORKER by De Alarcon M.D. [id number]
[2022-03-29 23:56] LABS: Glucose Point of Care 44 mg/dL (70-110)
[2022-03-30] VITALS (98 sets, daily range): BP systolic 93–129; BP diastolic 46–67; PULSE 0–121; RESP 12–24; TEMP 36.6–37.4; O2SAT 83–100
[2022-03-30 01:58] LABS: Glucose Point of Care 110 mg/dL (70-110)
[2022-03-30] MEDS: ipratropium-albuterol 3 mL Neb INHALATION ×4 (03:11→20:30)
[2022-03-30 04:22] LABS: ABG PH Result 7.46 (7.35-7.45); Alveolar-Arterial Oxygen Gradi 11.1 mmHg (5-10); Arterial Blood Gas Hematocrit 34.3 % (37-47); Base Excess ABG 16.2 mmol/L (-2.0-2.0); Blood Gas Allen Test Pos; Blood Gas Operator Identificat WALCI; Blood Gas Sample Site Radial, left; Blood Gas Sample Type Arterial; Carboxyhemoglobin 1.2 %THgb (0.4-20.1); HCO3 ABG 42.6 mmol/L (22-26); HGB O2 Sat 96.3 % (95-100); Ionized Calcium Level - ABG 1.2 mmol/L (1.1-1.4); Oxygen Device BIPAP; Oxygen Saturation ABG 98.5; Potassium Level - ABG 3.1 mmol/L (3.5-5.0); Total Hemoglobin 11.2 g/dL (12-16)
[2022-03-30 04:37] LABS: Basophils % 0.5 %; Eosinophils # 0.2 10^3/uL (0.0-0.8); Eosinophils % 3.1 %; Hematocrit 36.8 % (37.0-47.0); Hemoglobin 11.2 g/dL (11.5-15.3); Lymphocytes # 1.2 10^3/uL (0.8-4.8); Lymphocytes % 18.3 %; Mean Corpuscular HGB Conc 30.4 g/dL (30.0-36.0); Mean Corpuscular Hemoglobin 30.3 pg (28.0-34.0); Mean Corpuscular Volume 99.5 fl (81-99); Mean Platelet Volume 12.1 fL (7.4-10.4); Monocytes # 0.8 10^3/uL (0.2-0.9); Monocytes % 12.8 %; Neutrophils % 64.7 %; Nucleated Red Blood Cells % 0 %; Platelet Count 163 10^3/cmm (130-400); Red Cell Distribution Width 14.6 % (12.1-15.1); White Blood Count 6.5 10^3/uL (4.0-10.0)
--- NOTE | 2022-03-30 04:45 | ECG_ITS ---
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 Measurements Intervals [place] Rate: 81 P: 0 HI: 0 QRS: 192 QRSD: 89 T: -6 QT: 398 QTc: 464 Interpretive Statements ATRIAL FIBRILLATION WITH ABERRANT CONDUCTION OR VENTRICULAR PREMATURE COMPLEXES INDETERMINATE AXIS ST DEVIATION AND MODERATE T-WAVE ABNORMALITY, CONSIDER INFERIOR ISCHEMIA [-0.1+ mV T-WAVE IN II/aVF] WARNING: DATA QUALITY MAY AFFECT INTERPRETATION Compared to ECG 03/29/2022 22:28:14 Ventricular premature complex(es) now present Aberrant conduction of supraventricular beat(s) now present Indeterminate axis now present T-wave abnormality now present Possible ischemia now present Left-axis deviation no longer present Electronically Signed On 03-30-2022 16:14:46 CLOTHESPIN DRIER OPERATOR by De Alarcon M.D. [id number]
[2022-03-30 05:09] LABS: Procalcitonin 0.07 ng/mL (0-0.5); Thyroid Stimulating Hormone 2.79 uIU/mL (0.27-4.20)
[2022-03-30 05:20] LABS: Alanine Aminotransferase 7 U/L (0-33); Alkaline Phosphatase 78 U/L (35-105); Anion Gap 14.5 (5-19); Aspartate Amino Transferase 18 U/L (0-32); Blood Urea Nitrogen 18 mg/dL (8-23); Calcium 9.2 mg/dL (8.5-10.5); Carbon Dioxide 37 mmol/L (22-29); Chloride 97 mmol/L (98-107); Globulin 2.8 g/dL (1.3-4.6); Glucose 82 mg/dL (65-115); Magnesium 1.9 mg/dL (1.7-2.3); Osmolality Calculated 301 mOsm/kg (285-295); Potassium 3.5 mmol/L (3.5-5.1); Sodium 145 mmol/L (136-145); Total Bilirubin 0.4 mg/dL (0.15-1.2); Total Protein 5.8 g/dL (6.6-8.7)
--- NOTE | 2022-03-30 05:44 | PC.NURSE ---
Pts heart rate Bradycardic ranging from 38 to 45 bpm. ECG was done and notified. No new orders were given.
[2022-03-30 06:31] LABS: Glucose Point of Care 71 mg/dL (70-110)
[2022-03-30] MEDS: docusate sodium 100 mg Capsule 200 MG PO (06:32)
[2022-03-30] MEDS: levothyroxine 100 mcg Tablet PO (06:32)
[2022-03-30] MEDS: amlodipine 10 mg Tablet PO (06:32)
[2022-03-30] MEDS: FUROsemide 10 mg/mL SDV 10mL 60 MG IVP ×2 (06:33→18:33)
[2022-03-30] MEDS: metoprolol tartrate 50 mg Tablet PO ×2 (09:33→18:44)
[2022-03-30] MEDS: TRAMadol 50 mg Tablet PO ×2 (09:33→18:44)
--- NOTE | 2022-03-30 14:35 | PM.PN ---
Subjective Subjective: Patient was seen and examined this morning shortness of breath is improved, currently saturating well on 3L supplemental oxygen, good urine output overnight, AM ABG has been reviewed. Her other vitals and labs have been reviewed. Much more alert awake oriented, oriented to self place and person Medications: Medication Review Details: Generic Name Dose Route Start Last Admin Trade Name Brandee PRN Reason Stop Dose Admin Albuterol/Ipratrop ium 3 ml 03/29/22 20:00 03/30/22 13:56 Ipratropium-Albu terol 3 Ml Neb INHALATION 3 ml Q6H.RESP EMILIA Administration Amlodipine Besylat e 10 mg 03/30/22 06:00 03/30/22 06:32 Amlodipine 10 Mg Tablet PO 10 mg QAM EMILIA Administration Docusate Sodium 200 mg 03/30/22 06:00 03/30/22 06:32 Docusate Sodium 100 Mg Capsule PO 200 mg QAM EMILIA Administration Furosemide 60 mg 03/30/22 07:00 03/30/22 06:33 Furosemide 10 Mg /Ml Sdv 10ml IVP 60 mg BID EMILIA Administration Insulin Human Lisp ro 0 unit 03/29/22 18:00 03/30/22 07:36 Insulin Lispro 1 00 Unit/1 Ml SUBCUT Not Given TIDWM EMILIA Protocol Levothyroxine Sodi um 100 mcg 03/30/22 06:00 03/30/22 06:32 Levothyroxine 10 0 Mcg Tablet PO 100 mcg QAM EMILIA Administration Metoprolol Tartrat e 50 mg 03/29/22 18:00 03/30/22 09:33 Metoprolol Tartr ate 50 Mg Tablet PO 50 mg BID EMILIA Administration Tramadol HCl 50 mg 03/29/22 18:00 03/30/22 09:33 Tramadol 50 Mg T ablet PO 50 mg BID EMILIA Administration Vitals/I&O/Wt Last Vital Signs Temp 99.5 F 03/29/22 17:40 Pulse 73 03/30/22 13:57 Resp 20 H 03/30/22 13:57 BP 93/50 03/30/22 00:00 Pulse Ox 99 03/30/22 13:57 O2 Del Method 03/30/22 13:57 O2 Flow Rate 3 03/30/22 13:57 FiO2 35 03/30/22 07:32 03/29/22 03/30/2203/30/22 22:59 06:59 14:59 Output Total 2500 / 2500 Balance -2500 / -2500 Weight last 48 hrs Weight 97.522 kg Physical Exam Resp: EFFORT & INSPECTION: Yes symmetric chest movement OTHER: Diminished air entry bilaterally Cardio: COMMON NORMALS: Peripheral pulses 2+ throughout PERIPHERAL PULSES: Peripheral pulses 2+ throughout OTHER: Irregularly irregular rhythm, S1-S2 variable intensity GI: COMMON NORMALS: Normal to inspection, nondistended, normoactive bowel sounds present, Soft to palpation, non-tender, No hepatosplenomegaly present and no masses AUSCULTATION: Yes normoactive bowel sounds PALPATION: Yes Soft to palpation and Yes No hepatosplenomegaly present RECTAL EXAM: deferred Extremity: NARRATIVE EXTREMITY EXAM: 2+ pitting edema in both the lower EXTR Urinary Catheter Management: Simon: Cath Placed During This Visit: yes Reason for Continuing Indwelling Catheter: Accurate Measurement of Urinary Output in Critically Ill Patients Urinary Catheter Date of Insertion: 03/29/22 Urinary Catheter Time of Insertion: 17:00 Data 03/30/22 04:23 03/30/22 04:23 Micro: Microbiology 03/29/22 20:21 Blood Culture - Preliminary Blood SPECIMEN COLLECTED 03/29/22 18:36 Blood Culture - Preliminary Blood SPECIMEN COLLECTED A&P Assessment and plan (1) Diabetes: (2) Morbid obesity: (3) Essential hypertension: (4) Decompensated heart failure: (5) Hypothyroidism: (6) Mild cognitive impairment with memory loss: (7) History of atrial fibrillation: (8) Respiratory failure with hypoxia and hypercapnia: (9) Altered mental status: Plan 86 year old female with past medical history of hypertension and diabetes paroxysmal A. fib dyslipidemia morbid obesity dementia, hypothyroidism, history of lobectomy, was brought in from home with chief complaint of worsening shortness of breath started this Monday, according to the daughter who provided the history over the phone, she has been complaining of difficulty catching breath, was having difficulty with even is speaking a sentence, has been extremely drowsy in the last couple of days, was also complaining of chest pain with inspiration, she denied any fever, chills, cough, nausea vomiting abdominal. Assessment: Respiratory failure with hypoxia and hypercapnia secondary to decompensated heart failure Decompensated heart failure with preserved ejection fraction. Mild pulmonary hypertension Acute metabolic encephalopathy secondary to hypercapnia History of hypertension History of diabetes History of paroxysmal atrial fibrillation History of hypothyroidism History of morbid obesity Likely CKD versus KALANI on CKD Plan: 2D echo: Normal LV size and systolic function, no RWMA, LVEF 50 to 55%, normal LV size and systolic function. Blood culture Procalcitonin:0.07 TSH: 2.79 Monitor intake output charting Monitor daily weight K>4.MG>2 Continue Lasix 60 IV twice daily Continue metoprolol Continue Eliquis Continue levothyroxine Continue amlodipine LDDSI, monitor fingerstick glucose, Monitor BMP Monitor ABG Monitor x-ray chest Avoid nephrotoxic's CODE STATUS: Full code DVT prophylaxis: On therapeutic Lovenox Attestations Medical Necessity Statement*: Patient is still in hospital for management of respiratory failure heart failure. Coding Level of Care Code Acute Director Of Outpatient Services for Chg Fwd Exam Expanded Problem Focused Diagnoses Diabetes E11.9 Morbid obesity E66.01 Essential hypertension I10 Decompensated heart failure I50.9 Hypothyroidism E03.9 Mild cognitive impairment with memory loss G31.84 History of atrial fibrillation Z86.79 Respiratory failure with hypoxia and hypercapnia J96.91; J96.92 Altered mental status R41.82
[2022-03-30 17:33] LABS: Glucose Point of Care 93 mg/dL (70-110)
[2022-03-30 20:44] LABS: Glucose Point of Care 93 mg/dL (70-110)
[2022-03-30] MEDS: apixaban 5 mg Tablet PO (21:47)
[2022-03-31] VITALS (15 sets, daily range): BP systolic 114–129; BP diastolic 51–89; PULSE 55–77; RESP 17–25; TEMP 36.6–37.3; O2SAT 92–100
[2022-03-31] MEDS: ipratropium-albuterol 3 mL Neb INHALATION ×4 (01:55→20:49)
[2022-03-31 03:19] LABS: Basophils % 0.4 %; Eosinophils # 0.1 10^3/uL (0.0-0.8); Eosinophils % 0.6 %; Hemoglobin 10.9 g/dL (11.5-15.3); Lymphocytes # 1.1 10^3/uL (0.8-4.8); Lymphocytes % 14.1 %; Mean Corpuscular HGB Conc 31.1 g/dL (30.0-36.0); Mean Corpuscular Hemoglobin 29.9 pg (28.0-34.0); Mean Corpuscular Volume 95.9 fl (81-99); Mean Platelet Volume 11.7 fL (7.4-10.4); Monocytes % 11.9 %; Neutrophils # 5.86 10^3/uL (1.8-7.7); Neutrophils % 72.6 %; Nucleated Red Blood Cells % 0 %; Platelet Count 177 10^3/cmm (130-400); Red Blood Count 3.65 10^6/uL (4.1-5.3); Red Cell Distribution Width 14.6 % (12.1-15.1); White Blood Count 8.1 10^3/uL (4.0-10.0)
[2022-03-31 03:45] LABS: Alanine Aminotransferase 6 U/L (0-33); Albumin Level 3.1 g/dL (3.5-5.2); Alkaline Phosphatase 73 U/L (35-105); Anion Gap 13.4 (5-19); Aspartate Amino Transferase 15 U/L (0-32); Blood Urea Nitrogen 20 mg/dL (8-23); Carbon Dioxide 40 mmol/L (22-29); Chloride 97 mmol/L (98-107); Globulin 2.4 g/dL (1.3-4.6); Glucose 87 mg/dL (65-115); Osmolality Calculated 306 mOsm/kg (285-295); Potassium 3.4 mmol/L (3.5-5.1); Sodium 147 mmol/L (136-145); Total Bilirubin 0.5 mg/dL (0.15-1.2); Total Protein 5.5 g/dL (6.6-8.7)
[2022-03-31 05:16] LABS: ABG PCO2 49.6 mmHg (35-45); ABG PH Result 7.55 (7.35-7.45); Alveolar-Arterial Oxygen Gradi 6.8 mmHg (5-10); Base Excess ABG 18.1 mmol/L (-2.0-2.0); Blood Gas Allen Test Pos; Blood Gas Operator Identificat Anonymous; Blood Gas Sample Site Radial, right; Blood Gas Sample Type Arterial; Carboxyhemoglobin < 1.0 %THgb (0.4-20.1); HCO3 ABG 42.9 mmol/L (22-26); Ionized Calcium Level - ABG 1.1 mmol/L (1.1-1.4); Methemoglobin 0.3 % (0.4-1.5); Oxygen Device BIPAP; Oxygen Saturation ABG 99.9; Potassium Level - ABG 3.2 mmol/L (3.5-5.0); Total Hemoglobin 11.7 g/dL (12-16)
[2022-03-31] MEDS: amlodipine 10 mg Tablet PO (05:53)
[2022-03-31] MEDS: levothyroxine 100 mcg Tablet PO (05:53)
[2022-03-31] MEDS: docusate sodium 100 mg Capsule 200 MG PO (05:53)
[2022-03-31 06:35] LABS: Glucose Point of Care 91 mg/dL (70-110)
[2022-03-31] MEDS: lanolin oint 7 gm 1 APPLIC TOPICAL (08:05)
[2022-03-31] MEDS: apixaban 5 mg Tablet PO ×2 (08:06→20:38)
[2022-03-31] MEDS: metoprolol tartrate 50 mg Tablet PO ×2 (08:06→18:21)
[2022-03-31] MEDS: TRAMadol 50 mg Tablet PO ×2 (08:06→18:21)
[2022-03-31] MEDS: acetaZOLAMIDE 250 mg Tablet PO (08:18)
[2022-03-31] MEDS: FUROsemide 10 mg/mL SDV 10mL 40 MG IVP ×2 (08:18→18:22)
[2022-03-31 11:23] LABS: Glucose Point of Care 104 mg/dL (70-110)
--- NOTE | 2022-03-31 11:40 | P.PN_ITS ---
Subjective Subjective: Patient was seen and examined this morning shortness of breath is improved, good urine output, lower extremity swelling is going down, will decrease the dose of Lasix to 40 twice daily, as she is trending towards contraction alkalosis, will add acetazolamide. Plan is to switch to p.o. Lasix from tomorrow. We will involve physical therapy Medications: Medication Review Details: Generic Name Dose Route Start Last Admin Trade Name Tangq PRN Reason Stop Dose Admin Albuterol/Ipratrop ium 3 ml 03/29/22 20:00 03/30/22 13:56 Ipratropium-Albu terol 3 Ml Neb INHALATION 3 ml Q6H.RESP EMILIA Administration Amlodipine Besylat e 10 mg 03/30/22 06:00 03/30/22 06:32 Amlodipine 10 Mg Tablet PO 10 mg QAM EMILIA Administration Docusate Sodium 200 mg 03/30/22 06:00 03/30/22 06:32 Docusate Sodium 100 Mg Capsule PO 200 mg QAM EMILIA Administration Furosemide 60 mg 03/30/22 07:00 03/30/22 06:33 Furosemide 10 Mg /Ml Sdv 10ml IVP 60 mg BID EMILIA Administration Insulin Human Lisp ro 0 unit 03/29/22 18:00 03/30/22 07:36 Insulin Lispro 1 00 Unit/1 Ml SUBCUT Not Given TIDWM EMILIA Protocol Levothyroxine Sodi um 100 mcg 03/30/22 06:00 03/30/22 06:32 Levothyroxine 10 0 Mcg Tablet PO 100 mcg QAM EMILIA Administration Metoprolol Tartrat e 50 mg 03/29/22 18:00 03/30/22 09:33 Metoprolol Tartr ate 50 Mg Tablet PO 50 mg BID EMILIA Administration Tramadol HCl 50 mg 03/29/22 18:00 03/30/22 09:33 Tramadol 50 Mg T ablet PO 50 mg BID EMILIA Administration Vitals/I&O/Wt Last Vital Signs Temp 98.5 F 03/31/22 11:19 Pulse 73 03/31/22 11:19 Resp 20 H 03/31/22 11:19 BP 123/55 03/31/22 11:19 Pulse Ox 94 03/31/22 11:19 O2 Del Method 03/31/22 11:19 O2 Flow Rate 2 12/08/22 09:10 FiO2 25 03/31/22 05:25 03/30/22 03/31/22 03/31/22 22:59 06:59 14:59 Intake Total 0 / 0 480 / 480 Output Total 1650 / 1650 800 / 2450 Balance -1650 / -1650 -800 / -2450 480 / 480 Weight last 48 hrs Weight 101.333 kg Weight 101.208 kg Weight 97.522 kg Physical Exam Narrative: Extremely drowsy, Resp: EFFORT & INSPECTION: Yes symmetric chest movement OTHER: Diminished air entry bilaterally, fine right basal minimum crackles. Cardio: COMMON NORMALS: Peripheral pulses 2+ throughout PERIPHERAL PULSES: Peripheral pulses 2+ throughout OTHER: Irregularly irregular rhythm, S1-S2 variable intensity GI: COMMON NORMALS: Normal to inspection, nondistended, normoactive bowel sounds present, Soft to palpation, non-tender, No hepatosplenomegaly present and no masses AUSCULTATION: Yes normoactive bowel sounds PALPATION: Yes Soft to palpation and Yes No hepatosplenomegaly present RECTAL EXAM: deferred Extremity: NARRATIVE EXTREMITY EXAM: 2+ pitting edema in both the lower EXTR Urinary Catheter Management: Simon: Cath Placed During This Visit: yes Reason for Continuing Indwelling Catheter: Accurate Measurement of Urinary Outpu t in Critically Ill Patients Urinary Catheter Date of Insertion: 03/29/22 Urinary Catheter Time of Insertion: 17:00 Data 03/31/22 03:10 03/31/22 03:10 Micro: Microbiology 03/29/22 20:21 Blood Culture - Preliminary Blood NEGATIVE TO DATE 03/29/22 18:36 Blood Culture - Preliminary Blood NEGATIVE TO DATE A&P Assessment and plan (1) Diabetes: (2) Morbid obesity: (3) Essential hypertension: (4) Decompensated heart failure: (5) Hypothyroidism: (6) Mild cognitive impairment with memory loss: (7) History of atrial fibrillation: (8) Respiratory failure with hypoxia and hypercapnia: (9) Altered mental status: Plan 86 year old female with past medical history of hypertension and diabetes paroxysmal A. fib dyslipidemia morbid obesity dementia, hypothyroidism, history of lobectomy, was brought in from home with chief complaint of worsening shortness of breath started this Monday, according to the daughter who provided the history over the phone, she has been complaining of difficulty catching breath, was having difficulty with even is speaking a sentence, has been extremely drowsy in the last couple of days, was also complaining of chest pain with inspiration, she denied any fever, chills, cough, nausea vomiting abdominal. Assessment: Respiratory failure with hypoxia and hypercapnia secondary to decompensated heart failure Decompensated heart failure with preserved ejection fraction. Mild pulmonary hypertension Acute metabolic encephalopathy secondary to hypercapnia History of hypertension History of diabetes History of paroxysmal atrial fibrillation History of hypothyroidism History of morbid obesity Likely CKD versus KALANI on CKD Plan: 2D echo: Normal LV size and systolic function, no RWMA, LVEF 50 to 55%, normal LV size and systolic function. Blood culture: NTD Procalcitonin:0.07 TSH: 2.79 Monitor intake output charting Monitor daily weight K>4.MG>2 Continue Lasix 40 IV twice daily Continue metoprolol Continue Eliquis Continue levothyroxine Continue amlodipine LDDSI, monitor fingerstick glucose, Monitor BMP Monitor ABG Monitor x-ray chest Avoid nephrotoxic's CODE STATUS: Full code DVT prophylaxis: On therapeutic Lovenox Attestations Medical Necessity Statement*: Patient is to be in hospital for management of decompensated heart failure. Time Spent in Patient Care: Greater than 35 minutes (>than 50% of time spent in counselling and/or direct pt care on unit) . Coding Level of Care Code Acute Allergist Immunologist for Chg Fwd Diagnoses Diabetes E11.9 Morbid obesity E66.01 Essential hypertension I10 Decompensated heart failure I50.9 Hypothyroidism E03.9 Mild cognitive impairment with memory loss G31.84 History of atrial fibrillation Z86.79 Respiratory failure with hypoxia and hypercapnia J96.91; J96.92 Altered mental status R41.82
[2022-03-31] MEDS: potassium chloride ER 20 mEq Tablet 40 MEQ PO (12:53)
[2022-03-31] MEDS: lidocaine 1% 5 ML in potassium chloride premix 100 ML 50 ML IV (13:06)
[2022-03-31 16:56] LABS: Glucose Point of Care 110 mg/dL (70-110)
[2022-03-31 20:28] LABS: Glucose Point of Care 118 mg/dL (70-110)
[2022-04-01] VITALS (64 sets, daily range): BP systolic 114–129; BP diastolic 54–67; PULSE 60–140; RESP 16–20; TEMP 36.6–37.1; O2SAT 88–99
[2022-04-01] MEDS: ipratropium-albuterol 3 mL Neb INHALATION ×4 (02:02→21:51)
[2022-04-01 05:41] LABS: Basophils % 0.4 %; Eosinophils # 0.2 10^3/uL (0.0-0.8); Eosinophils % 2.6 %; Hematocrit 36.6 % (37.0-47.0); Hemoglobin 11.5 g/dL (11.5-15.3); Lymphocytes # 1.7 10^3/uL (0.8-4.8); Lymphocytes % 21.2 %; Mean Corpuscular HGB Conc 31.4 g/dL (30.0-36.0); Mean Corpuscular Hemoglobin 30.2 pg (28.0-34.0); Mean Corpuscular Volume 96.1 fl (81-99); Mean Platelet Volume 11.9 fL (7.4-10.4); Monocytes # 1.1 10^3/uL (0.2-0.9); Monocytes % 13.3 %; Neutrophils # 4.94 10^3/uL (1.8-7.7); Neutrophils % 62.1 %; Nucleated Red Blood Cells % 0 %; Platelet Count 159 10^3/cmm (130-400); Red Blood Count 3.81 10^6/uL (4.1-5.3); Red Cell Distribution Width 14.8 % (12.1-15.1)
[2022-04-01 06:00] LABS: Alanine Aminotransferase 6 U/L (0-33); Albumin Level 3.2 g/dL (3.5-5.2); Alkaline Phosphatase 81 U/L (35-105); Anion Gap 13.3 (5-19); Aspartate Amino Transferase 19 U/L (0-32); Blood Urea Nitrogen 25 mg/dL (8-23); Calcium 9.4 mg/dL (8.5-10.5); Carbon Dioxide 39 mmol/L (22-29); Chloride 96 mmol/L (98-107); Globulin 2.7 g/dL (1.3-4.6); Glucose 96 mg/dL (65-115); Osmolality Calculated 304 mOsm/kg (285-295); Potassium 3.3 mmol/L (3.5-5.1); Sodium 145 mmol/L (136-145); Total Bilirubin 0.5 mg/dL (0.15-1.2); Total Protein 5.9 g/dL (6.6-8.7)
[2022-04-01] MEDS: amlodipine 10 mg Tablet PO (06:25)
[2022-04-01] MEDS: levothyroxine 100 mcg Tablet PO (06:25)
[2022-04-01 06:35] LABS: Glucose Point of Care 91 mg/dL (70-110)
--- NOTE | 2022-04-01 08:23 | XR_ITS ---
WS: [id number] EXAMINATION: XR chest 1V portable [id number] REASON FOR EXAM: SOB COMPARISON: 03/29/2022 ORDER DATE: 04/01/2022 8:20 AM TECHNIQUE: A single, portable frontal chest x-ray was obtained. X-RAY FINDINGS: There is been marked improvement in the degree of pulmonary vascular congestion and decreased pleural effusions bilaterally since previous study. Unchanged cardiomegaly and dextroscoliosis of the dorsal spine. Rounded sclerotic foci about 1 cm in diameter seen in the mid right clavicle and left upper s capula not seen previously possible artifact clinical correlation suggested. XR/XR chest 1V portable [id number] IMPRESSION: Significant improvement compared with the prior study.
[2022-04-01] MEDS: TRAMadol 50 mg Tablet PO ×2 (09:33→18:36)
[2022-04-01] MEDS: apixaban 5 mg Tablet PO ×2 (09:33→20:54)
[2022-04-01] MEDS: potassium chloride ER 20 mEq Tablet 40 MEQ PO (09:33)
[2022-04-01] MEDS: acetaZOLAMIDE 250 mg Tablet PO (09:33)
[2022-04-01] MEDS: FUROsemide 10 mg/mL SDV 10mL 40 MG IVP ×2 (09:34→18:37)
[2022-04-01] MEDS: metoprolol tartrate 50 mg Tablet PO ×2 (09:47→18:36)
[2022-04-01 11:30] LABS: Glucose Point of Care 133 mg/dL (70-110)
--- NOTE | 2022-04-01 14:19 | PM.PN ---
Subjective Subjective: Patient was seen and examined this morning shortness of breath is improved, but extremity swelling is going down. Continues to have good urine output. A.m. chest x-ray done today has shown significant: Improvement in pulmonary vascular congestion, and decreasing pleural effusion bilaterally, when compared to prior chest x-ray done on admission. Medications: Medication Review Details: Generic Name Dose Route Start Last Admin Trade Name Freq PRN Reason Stop Dose Admin Acetazolamide 250 mg 03/31/22 09:00 04/01/22 09:33 Acetazolamide 25 0 Mg Tablet PO 250 mg DAILY EMILIA Administration Albuterol/Ipratrop ium 3 ml 03/29/22 20:00 04/01/22 08:56 Ipratropium-Albu terol 3 Ml Neb INHALATION 3 ml Q6H.RESP EMILIA Administration Amlodipine Besylat e 10 mg 03/30/22 06:00 04/01/22 06:25 Amlodipine 10 Mg Tablet PO 10 mg QAM EMILIA Administration Apixaban 5 mg 03/30/22 21:00 04/01/22 09:33 Apixaban 5 Mg Ta blet PO 5 mg BID@0900,2100 EMILIA Administration Docusate Sodium 200 mg 03/30/22 06:00 04/01/22 06:26 Docusate Sodium 100 Mg Capsule PO Not Given QAM EMILIA Furosemide 40 mg 03/31/22 09:00 04/01/22 09:34 Furosemide 10 Mg /Ml Sdv 10ml IVP 40 mg BID EMILIA Administration Insulin Human Lisp ro 0 unit 03/29/22 18:00 04/01/22 12:50 Insulin Lispro 1 00 Unit/1 Ml SUBCUT Not Given TIDWM [facility] Protocol Lanolin 1 applic 03/31/22 07:15 03/31/22 08:05 Lanolin Oint 7 G m TOPICAL 1 applic PRN PRN Administration DRYNESS Levothyroxine Sodi um 100 mcg 03/30/22 06:00 04/01/22 06:25 Levothyroxine 10 0 Mcg Tablet PO 100 mcg QAM EMILIA Administration Metoprolol Tartrat e 50 mg 03/29/22 18:00 04/01/22 09:47 Metoprolol Tartr ate 50 Mg Tablet PO 50 mg BID EMILIA Administration Potassium Chloride 40 meq 03/31/22 11:40 04/01/22 09:33 Potassium Chlori de Er 20 Meq Table t PO 40 meq DAILY EMILIA Administration Tramadol HCl 50 mg 03/29/22 18:00 04/01/22 09:33 Tramadol 50 Mg T ablet PO 50 mg BID EMILIA Administration Vitals/I&O/Wt Last Vital Signs Temp 97.9 F 04/01/22 08:35 Pulse 98 04/01/22 12:00 Resp 18 04/01/22 09:00 BP 115/57 04/01/22 12:00 Pulse Ox 95 04/01/22 12:00 O2 Del Method 04/01/22 12:00 O2 Flow Rate 2 04/01/22 12:00 FiO2 25 03/31/22 05:25 03/31/22 04/01/22 04/01/22 22:59 06:59 14:59 Intake Total 585 / 1545 200 / 1745 340 / 340 Output Total 2200 / 3200 Balance -1615 / -1655 200 / -1455 340 / 340 Weight last 48 hrs Weight 98.883 kg Weight 101.333 kg Weight 101.208 kg Physical Exam Narrative: Extremely drowsy, Resp: EFFORT & INSPECTION: Yes symmetric chest movement OTHER: Bilateral clear except for fine right basal minimum crackles. Cardio: COMMON NORMALS: Peripheral pulses 2+ throughout PERIPHERAL PULSES: Peripheral pulses 2+ throughout OTHER: Irregularly irregular rhythm, S1-S2 variable intensity GI: COMMON NORMALS: Normal to inspection, nondistended, normoactive bowel sounds present, Soft to palpation, non-tender, No hepatosplenomegaly present and no masses AUSCULTATION: Yes normoactive bowel sounds PALPATION: Yes Soft to palpation and Yes No hepatosplenomegaly present RECTAL EXAM: deferred Extremity: NARRATIVE EXTREMITY EXAM: 2+ pitting edema in both the lower EXTR Urinary Catheter Management: Simon: Cath Placed During This Visit: yes Reason for Continuing Indwelling Catheter: Acute Urinary Retention or Obstruction Urinary Catheter Date of Insertion: 03/29/22 Urinary Catheter Time of Insertion: 17:00 Data 04/01/22 05:30 04/01/22 05:30 A&P Assessment and plan (1) Diabetes: (2) Morbid obesity: (3) Essential hypertension: (4) Decompensated heart failure: (5) Hypothyroidism: (6) Mild cognitive impairment with memory loss: (7) History of atrial fibrillation: (8) Respiratory failure with hypoxia and hypercapnia: (9) Altered mental status: Plan 86 year old female with past medical history of hypertension and diabetes paroxysmal A. fib dyslipidemia morbid obesity dementia, hypothyroidism, history of lobectomy, was brought in from home with chief complaint of worsening shortness of breath started this Monday, according to the daughter who provided the history over the phone, she has been complaining of difficulty catching breath, was having difficulty with even is speaking a sentence, has been extremely drowsy in the last couple of days, was also complaining of chest pain with inspiration, she denied any fever, chills, cough, nausea vomiting abdominal. Assessment: Respiratory failure with hypoxia and hypercapnia secondary to decompensated heart failure Decompensated heart failure with preserved ejection fraction. Mild pulmonary hypertension Acute metabolic encephalopathy secondary to hypercapnia History of hypertension History of diabetes History of paroxysmal atrial fibrillation History of hypothyroidism History of morbid obesity Likely CKD versus KALANI on CKD Plan: 2D echo: Normal LV size and systolic function, no RWMA, LVEF 50 to 55%, normal LV size and systolic function. Blood culture: NTD Procalcitonin:0.07 TSH: 2.79 Monitor intake output charting Monitor daily weight K>4.MG>2 Continue Lasix 40 IV twice daily Continue metoprolol Continue Eliquis Continue levothyroxine Continue amlodipine LDDSI, monitor fingerstick glucose, Monitor BMP Monitor ABG Monitor x-ray chest Avoid nephrotoxic's Updated plan for today: She will need 1 more day of IV Lasix, will plan to discharge her on p.o. Lasix tomorrow. CODE STATUS: Full code DVT prophylaxis: On therapeutic Lovenox Attestations Medical Necessity Statement*: Patient needs to be in hospital for continued IV Lasix. Coding Level of Care Code Acute Account Services Manager for Chg Fwd Exam Expanded Problem Focused Diagnoses Diabetes E11.9 Morbid obesity E66.01 Essential hypertension I10 Decompensated heart failure I50.9 Hypothyroidism E03.9 Mild cognitive impairment with memory loss G31.84 History of atrial fibrillation Z86.79 Respiratory failure with hypoxia and hypercapnia J96.91; J96.92 Altered mental status R41.82
[2022-04-01 18:07] LABS: Glucose Point of Care 135 mg/dL (70-110)
[2022-04-01 20:15] LABS: Glucose Point of Care 183 mg/dL (70-110)
[2022-04-02] VITALS (54 sets, daily range): BP systolic 86–128; BP diastolic 49–74; PULSE 54–116; RESP 12–20; TEMP 36.3–36.8; O2SAT 78–100
[2022-04-02] MEDS: amlodipine 10 mg Tablet PO (06:04)
[2022-04-02] MEDS: levothyroxine 100 mcg Tablet PO (06:04)
[2022-04-02 06:52] LABS: Glucose Point of Care 100 mg/dL (70-110)
[2022-04-02] MEDS: ipratropium-albuterol 3 mL Neb INHALATION ×3 (08:45→21:21)
[2022-04-02] MEDS: potassium chloride ER 20 mEq Tablet 40 MEQ PO (09:53)
[2022-04-02] MEDS: apixaban 5 mg Tablet PO ×2 (09:54→22:21)
[2022-04-02] MEDS: acetaZOLAMIDE 250 mg Tablet PO (10:16)
[2022-04-02] MEDS: TRAMadol 50 mg Tablet PO (10:16)
[2022-04-02] MEDS: FUROsemide 40 mg Tablet PO (10:21)
[2022-04-02] MEDS: metoprolol tartrate 50 mg Tablet 25 MG PO ×2 (10:24→22:19)
[2022-04-02 10:46] LABS: Basophils % 0.3 %; Eosinophils # 0.3 10^3/uL (0.0-0.8); Eosinophils % 2.9 %; Hematocrit 38.7 % (37.0-47.0); Hemoglobin 11.9 g/dL (11.5-15.3); Lymphocytes # 1.4 10^3/uL (0.8-4.8); Lymphocytes % 14.4 %; Mean Corpuscular HGB Conc 30.7 g/dL (30.0-36.0); Mean Corpuscular Volume 97.5 fl (81-99); Mean Platelet Volume 12.2 fL (7.4-10.4); Monocytes # 1.2 10^3/uL (0.2-0.9); Monocytes % 12.2 %; Neutrophils # 6.66 10^3/uL (1.8-7.7); Neutrophils % 69.8 %; Nucleated Red Blood Cells % 0 %; Platelet Count 167 10^3/cmm (130-400); Red Blood Count 3.97 10^6/uL (4.1-5.3); Red Cell Distribution Width 14.6 % (12.1-15.1); White Blood Count 9.5 10^3/uL (4.0-10.0)
[2022-04-02 11:00] LABS: Anion Gap 12.9 (5-19); Blood Urea Nitrogen 23 mg/dL (8-23); Calcium 9.4 mg/dL (8.5-10.5); Carbon Dioxide 37 mmol/L (22-29); Chloride 98 mmol/L (98-107); Glucose 95 mg/dL (65-115); Osmolality Calculated 301 mOsm/kg (285-295); Potassium 3.9 mmol/L (3.5-5.1); Sodium 144 mmol/L (136-145)
[2022-04-02 12:26] LABS: Glucose Point of Care 88 mg/dL (70-110)
[2022-04-02 15:01] LABS: Magnesium 2.2 mg/dL (1.7-2.3)
--- NOTE | 2022-04-02 16:49 | P.PN_ITS ---
Subjective Subjective: Patient was seen and examined this morning, denies any significant shortness of breath, good urine output overnight, will switch patient to p.o. Lasix.Currently she is 8 Ls negative.Dose of metoprolol tartrate has been decreased to 25 p.o. twice daily, as the heart rate is dipping into mid 50s. Medications: Medication Review Details: Generic Name Dose Route Start Last Admin Trade Name Freq PRN Reason Stop Dose Admin Albuterol/Ipratrop ium 3 ml 03/29/22 20:00 04/02/22 14:09 Ipratropium-Albu terol 3 Ml Neb INHALATION 3 ml Q6H.RESP EMILIA Administration Amlodipine Besylat e 10 mg 03/30/22 06:00 04/02/22 06:04 Amlodipine 10 Mg Tablet PO 10 mg QAM EMILIA Administration Apixaban 5 mg 03/30/22 21:00 04/02/22 09:54 Apixaban 5 Mg Ta blet PO 5 mg BID@0900,2100 EMILIA Administration Docusate Sodium 200 mg 03/30/22 06:00 04/02/22 06:04 Docusate Sodium 100 Mg Capsule PO Not Given QAM EMILIA Furosemide 40 mg 04/02/22 10:10 04/02/22 10:21 Furosemide 40 Mg Tablet PO 40 mg BID@08,16 EMILIA Administration Insulin Human Lisp ro 0 unit 03/29/22 18:00 04/02/22 12:41 Insulin Lispro 1 00 Unit/1 Ml SUBCUT Not Given TIDWM [facility] Protocol Lanolin 1 applic 03/31/22 07:15 03/31/22 08:05 Lanolin Oint 7 G m TOPICAL 1 applic PRN PRN Administration DRYNESS Levothyroxine Sodi um 100 mcg 03/30/22 06:00 04/02/22 06:04 Levothyroxine 10 0 Mcg Tablet PO 100 mcg QAM EMILIA Administration Metoprolol Tartrat e 25 mg 04/02/22 10:20 04/02/22 10:24 Metoprolol Tartr ate 50 Mg Tablet PO 25 mg BID EMILIA Administration Potassium Chloride 40 meq 03/31/22 11:40 04/02/22 09:53 Potassium Chlori de Er 20 Meq Table t PO 40 meq DAILY EMILIA Administration Tramadol HCl 50 mg 03/29/22 18:00 04/02/22 10:16 Tramadol 50 Mg T ablet PO 50 mg BID EMILIA Administration Vitals/I&O/Wt Last Vital Signs Temp 98.2 F 04/02/22 04:00 Pulse 58 L 04/02/22 15:37 Resp 16 04/02/22 14:00 BP 91/50 04/02/22 15:37 Pulse Ox 96 04/02/22 14:00 O2 Del Method 04/02/22 14:00 O2 Flow Rate 2 04/02/22 14:00 FiO2 25 03/31/22 05:25 04/02/22 04/02/22 04/02/22 06:59 14:59 22:59 Intake Total 100 / 830 360 / 360 Output Total 1150 / 3050 Balance -1050 / -2220 360 / 360 Weight last 48 hrs Weight 97.976 kg Weight 98.883 kg Physical Exam Narrative: Extremely drowsy, Resp: EFFORT & INSPECTION: Yes symmetric chest movement OTHER: Bilateral clear except for fine right basal minimum crackles. Cardio: COMMON NORMALS: Peripheral pulses 2+ throughout PERIPHERAL PULSES: Peripheral pulses 2+ throughout OTHER: Irregularly irregular rhythm, S1-S2 variable intensity GI: COMMON NORMALS: Normal to inspection, nondistended, normoactive bowel sounds present, Soft to palpation, non-tender, No hepatosplenomegaly present and no masses AUSCULTATION: Yes normoactive bowel sounds PALPATION: Yes Soft to palpation and Yes No hepatosplenomegaly present RECTAL EXAM: deferred Extremity: NARRATIVE EXTREMITY EXAM: 2+ pitting edema in both the lower EXTR Urinary Catheter Management: Simon: Cath Placed During This Visit: yes Reason for Continuing Indwelling Catheter: Acute Urinary Retention or Obstruction Urinary Catheter Date of Insertion: 03/29/22 Urinary Catheter Time of Insertion: 17:00 Data 04/02/22 10:35 04/02/22 10:35 A&P Assessment and plan (1) Diabetes: (2) Morbid obesity: (3) Essential hypertension: (4) Decompensated heart failure: (5) Hypothyroidism: (6) Mild cognitive impairment with memory loss: (7) History of atrial fibrillation: (8) Respiratory failure with hypoxia and hypercapnia: (9) Altered mental status: Plan 86 year old female with past medical history of hypertension and diabetes paroxysmal A. fib dyslipidemia morbid obesity dementia, hypothyroidism, history of lobectomy, was brought in from home with chief complaint of worsening shortness of breath started this Monday, according to the daughter who provided the history over the phone, she has been complaining of difficulty catching breath, was having difficulty with even is speaking a sentence, has been extremely drowsy in the last couple of days, was also complaining of chest pain with inspiration, she denied any fever, chills, cough, nausea vomiting a bdominal. Assessment: Respiratory failure with hypoxia and hypercapnia secondary to decompensated heart failure Decompensated heart failure with preserved ejection fraction. Mild pulmonary hypertension Acute metabolic encephalopathy secondary to hypercapnia History of hypertension History of diabetes History of paroxysmal atrial fibrillation History of hypothyroidism History of morbid obesity Likely CKD versus KALANI on CKD Plan: 2D echo: Normal LV size and systolic function, no RWMA, LVEF 50 to 55%, normal LV size and systolic function. Most recent x-ray chest: Has shown significant improvement in pulmonary vascular congestion, decreased bilateral pleural effusion. Blood culture: NTD Procalcitonin:0.07 TSH: 2.79 Monitor intake output charting Monitor daily weight K>4.MG>2 Was on Lasix 40 IV twice daily. Continue metoprolol Continue Eliquis Continue levothyroxine Continue amlodipine LDDSI, monitor fingerstick glucose, Monitor BMP Monitor ABG Monitor x-ray chest Avoid nephrotoxic's Updated plan for today: She has been transitioned to p.o. Lasix today. CODE STATUS: Full code DVT prophylaxis: On therapeutic Lovenox Disposition: Given her current functional status, patient will likely need SNF placement,family also wants patient to go to SNF. Attestations Medical Necessity Statement*: Patient is in hospital for placement to [facility] facility. Time Spent in Patient Care: Greater than 35 minutes (>than 50% of time spent in counselling and/or direct pt care on unit) . Coding Level of Care Code Acute Autobody Technician for g Fwd Diagnoses Diabetes E11.9 Morbid obesity E66.01 Essential hypertension I10 Decompensated heart failure I50.9 Hypothyroidism E03.9 Mild cognitive impairment with memory loss G31.84 History of atrial fibrillation Z86.79 Respiratory failure with hypoxia and hypercapnia J96.91; J96.92 Altered mental status R41.82
[2022-04-02 19:20] LABS: Glucose Point of Care 164 mg/dL (70-110)
[2022-04-02] MEDS: insulin lispro 100 unit/1 mL SUBCUT (19:29)
[2022-04-02 21:30] LABS: Glucose Point of Care 135 mg/dL (70-110)
[2022-04-02] MEDS: ondansetron 2 mg/ML SDV 2 mL 4 MG IVP (22:19)
[2022-04-03] VITALS (16 sets, daily range): BP systolic 95–122; BP diastolic 51–72; PULSE 57–80; RESP 12–34; TEMP 36.4–36.8; O2SAT 90–96
[2022-04-03] MEDS: ipratropium-albuterol 3 mL Neb INHALATION ×4 (01:55→20:17)
[2022-04-03 04:00] LABS: Basophils % 0.2 %; Eosinophils # 0.2 10^3/uL (0.0-0.8); Eosinophils % 2.3 %; Hematocrit 37.7 % (37.0-47.0); Hemoglobin 11.4 g/dL (11.5-15.3); Lymphocytes # 1.4 10^3/uL (0.8-4.8); Lymphocytes % 14.6 %; Mean Corpuscular HGB Conc 30.2 g/dL (30.0-36.0); Mean Corpuscular Hemoglobin 29.9 pg (28.0-34.0); Mean Platelet Volume 12.5 fL (7.4-10.4); Monocytes # 1.3 10^3/uL (0.2-0.9); Neutrophils # 6.71 10^3/uL (1.8-7.7); Neutrophils % 69.5 %; Nucleated Red Blood Cells % 0 %; Platelet Count 158 10^3/cmm (130-400); Red Blood Count 3.81 10^6/uL (4.1-5.3); Red Cell Distribution Width 14.6 % (12.1-15.1); White Blood Count 9.7 10^3/uL (4.0-10.0)
[2022-04-03 04:16] LABS: Anion Gap 11.9 (5-19); Blood Urea Nitrogen 26 mg/dL (8-23); Carbon Dioxide 32 mmol/L (22-29); Chloride 95 mmol/L (98-107); Glucose 99 mg/dL (65-115); Magnesium 2.2 mg/dL (1.7-2.3); Osmolality Calculated 285 mOsm/kg (285-295); Potassium 3.9 mmol/L (3.5-5.1); Sodium 135 mmol/L (136-145)
[2022-04-03] MEDS: docusate sodium 100 mg Capsule 200 MG PO (05:45)
[2022-04-03] MEDS: amlodipine 10 mg Tablet PO (05:45)
[2022-04-03] MEDS: levothyroxine 100 mcg Tablet PO (05:46)
[2022-04-03 06:58] LABS: Glucose Point of Care 97 mg/dL (70-110)
[2022-04-03] MEDS: metoprolol tartrate 50 mg Tablet 25 MG PO ×2 (09:18→17:51)
[2022-04-03] MEDS: apixaban 5 mg Tablet PO ×2 (09:19→20:38)
[2022-04-03] MEDS: acetaminophen 325 mg Tablet 650 MG PO ×2 (09:20→20:37)
--- NOTE | 2022-04-03 11:04 | PC.SOCIAL ---
IMM update IMM updated with patient. Verbalized an understanding. Copy Pg 2 provided. Initialled, dated, timed, and placed in chart.
[2022-04-03 12:27] LABS: Glucose Point of Care 109 mg/dL (70-110)
--- NOTE | 2022-04-03 13:11 | PC.NURSE ---
Patient did her PT treatment this morning. Pt did moderately well during transfer from bed to chair. Few mins after she was sitting in the chair, she started to get tremulous and pursed lip breathing. she told me she is hot and then cold. denies any chest pain, or any discomfort. pt assisted back to bed. BP is stable.
--- NOTE | 2022-04-03 16:35 | P.PN_ITS ---
Subjective Subjective: Patient was seen and examined this morning,overall she is doing better, appears to be slightly dry serum creatinine is also trended up, will hold p.o. Lasix for today. Medications: Medication Review Details: Generic Name Dose Route Start Last Admin Trade Name Freq PRN Reason Stop Dose Admin Acetaminophen 650 mg 03/29/22 17:15 04/03/22 09:20 Acetaminophen 32 5 Mg Tablet PO 650 mg Q6H PRN Administration Mild/Mod Pain Or Temp >/= 101 Albuterol/Ipratrop ium 3 ml 03/29/22 20:00 04/03/22 14:32 Ipratropium-Albu terol 3 Ml Neb INHALATION 3 ml Q6H.RESP EMILIA Administration Apixaban 5 mg 03/30/22 21:00 04/03/22 09:19 Apixaban 5 Mg Ta blet PO 5 mg BID@0900,2100 EMILIA Administration Docusate Sodium 200 mg 03/30/22 06:00 04/03/22 05:45 Docusate Sodium 100 Mg Capsule PO 200 mg QAM EMILIA Administration Furosemide 40 mg 04/02/22 10:10 04/02/22 10:21 Furosemide 40 Mg Tablet PO 40 mg BID@08,16 EMILIA Administration Insulin Human Lisp ro 0 unit 03/29/22 18:00 04/03/22 13:06 Insulin Lispro 1 00 Unit/1 Ml SUBCUT Not Given TIDWM [facility] Protocol Lanolin 1 applic 03/31/22 07:15 03/31/22 08:05 Lanolin Oint 7 G m TOPICAL 1 applic PRN PRN Administration DRYNESS Levothyroxine Sodi um 100 mcg 03/30/22 06:00 04/03/22 05:46 Levothyroxine 10 0 Mcg Tablet PO 100 mcg QAM EMILIA Administration Metoprolol Tartrat e 25 mg 04/02/22 10:20 04/03/22 09:18 Metoprolol Tartr ate 50 Mg Tablet PO 25 mg BID EMILIA Administration Ondansetron HCl 4 mg 03/29/22 17:15 04/02/22 22:19 Ondansetron 2 Mg /Ml Sdv 2 Ml IVP 4 mg Q8H PRN Administration vomiting, or N/V if npo Potassium Chloride 40 meq 03/31/22 11:40 04/03/22 11:25 Potassium Chlori de Er 20 Meq Table t PO Not Given DAILY EMILIA Tramadol HCl 50 mg 03/29/22 18:00 04/03/22 09:19 Tramadol 50 Mg T ablet PO Not Given BID EMILIA Vitals/I&O/Wt Last Vital Signs Temp 97.6 F 04/03/22 13:14 Pulse 69 04/03/22 14:42 Resp 16 04/03/22 14:00 BP 108/72 04/03/22 13:14 Pulse Ox 96 04/03/22 14:00 O2 Del Method 04/03/22 14:00 O2 Flow Rate 3 04/03/22 14:00 FiO2 25 03/31/22 05:25 04/03/22 04/03/22 04/03/22 06:59 14:59 22:59 Intake Total 120 / 960 400 / 400 Output Total 420 / 1270 Balance -300 / -310 400 / 400 Weight last 48 hrs Weight 94.347 kg Weight 97.976 kg Physical Exam Resp: EFFORT & INSPECTION: Yes symmetric chest movement OTHER: Bilaterally clear Cardio: COMMON NORMALS: Peripheral pulses 2+ throughout PERIPHERAL PULSES: Peripheral pulses 2+ throughout OTHER: Irregularly irregular rhythm, S1-S2 variable intensity GI: COMMON NORMALS: Normal to inspection, nondistended, normoactive bowel sounds present, Soft to palpation, non-tender, No hepatosplenomegaly present and no masses AUSCULTATION: Yes normoactive bowel sounds PALPATION: Yes Soft to palpation and Yes No hepatosplenomegaly present RECTAL EXAM: deferred Extremity: NARRATIVE EXTREMITY EXAM: 2+ pitting edema in both the lower EXTR Urinary Catheter Management: Simon: Cath Placed During This Visit: yes Reason for Continuing Indwelling Catheter: Accurate Measurement of Urinary Output in Critically Ill Patients Urinary Catheter Date of Insertion: 03/29/22 Urinary Catheter Time of Insertion: 17:00 Data 04/03/22 03:00 04/03/22 03:00 A&P Assessment and plan (1) Diabetes: (2) Morbid obesity: (3) Essential hypertension: (4) Decompensated heart failure: (5) Hypothyroidism: (6) Mild cognitive impairment with memory loss: (7) History of atrial fibrillation: (8) Respiratory failure with hypoxia and hypercapnia: (9) Altered mental status: Plan 86 year old female with past medical history of hypertension and diabetes paroxysmal A. fib dyslipidemia morbid obesity dementia, hypothyroidism, history of lobectomy, was brought in from home with chief complaint of worsening shortness of breath started this Monday, according to the daughter who provided the history over the phone, she has been complaining of difficulty catching breath, was having difficulty with even is speaking a sentence, has been extremely drowsy in the last couple of days, was also complaining of chest pain with inspiration, she denied any fever, chills, cough, nausea vomiting abdominal. Assessment: Respiratory failure with hypoxia and hypercapnia secondary to decompensated heart failure Decompensated heart failure with preserved ejection fraction. Mild pulmonary hypertension Acute metabolic encephalopathy secondary to hypercapnia History of hypertension History of diabetes History of paroxysmal atrial fibrillation History of hypothyroidism History of morbid obesity Likely CKD versus KALANI on CKD Plan: 2D echo: Normal LV size and systolic function, no RWMA, LVEF 50 to 55%, normal LV size and systolic function. Most recent x-ray chest: Has shown significant improvement in pulmonary vascular congestion, decreased bilateral pleural effusion. Blood culture: NTD Procalcitonin:0.07 TSH: 2.79 Monitor intake output charting Monitor daily weight K>4.MG>2 Was on Lasix 40 IV twice daily. Has been transitioned to p.o. Lasix. Continue metoprolol: Dose has been decreased to 25 mg p.o. twice daily, as the heart rate was dipping into Mid 50s. Continue Eliquis Continue levothyroxine Continue amlodipine LDDSI, monitor fingerstick glucose, Monitor BMP Monitor ABG Monitor x-ray chest Avoid nephrotoxic's Updated plan for today: Hold p.o. Lasix today. CODE STATUS: Full code DVT prophylaxis: Not needed on Eliquis Disposition: Given her current functional status, patient will likely need SNF placement,family also wants patient to go to SNF. Attestations Medical Necessity Statement*: Patient is to be in hospital for management of heart failure. Coding Level of Care Code Acute Online Media Buyer for [employer] Fwd Diagnoses Diabetes E11.9 Morbid obesity E66.01 Essential hypertension I10 Decompensated heart failure I50.9 Hypothyroidism E03.9 Mild cognitive impairment with memory loss G31.84 History of atrial fibrillation Z86.79 Respiratory failure with hypoxia and hypercapnia J96.91; J96.92 Altered mental status R41.82
[2022-04-03 17:21] LABS: Glucose Point of Care 110 mg/dL (70-110)
[2022-04-03 20:28] LABS: Glucose Point of Care 160 mg/dL (70-110)
[2022-04-04] VITALS (16 sets, daily range): BP systolic 106–133; BP diastolic 48–67; PULSE 58–91; RESP 16–22; TEMP 36.4–36.6; O2SAT 96–99
[2022-04-04] MEDS: ipratropium-albuterol 3 mL Neb INHALATION ×4 (01:16→22:45)
[2022-04-04] MEDS: HYDROcodone-acetaminophen 5-325 mg Tablet 1 TAB PO (01:54)
--- NOTE | 2022-04-04 05:00 | XRR_ITS ---
PROCEDURE INFORMATION: Exam: XR Chest Exam date and time: 04/04/2022 5:12 AM Age: 86 years old Clinical indication: Other: Bilat pleural effusion; Additional info: Pleural effusion assesment TECHNIQUE: Imaging protocol: Radiologic exam of the chest. Views: 1 view. COMPARISON: CR XR chest 1V portable [id number] 04/01/2022 8:52 AM FINDINGS: Lungs: Hazy bilateral mid to lower lung opacities and effusions are slightly improved. No pneumothorax or other change. Pleural spaces: See Lungs finding. Heart/Mediastinum: The heart is large with diffuse atherosclerotic calcification. Bones/joints: Unremarkable. XR/XR chest 1V portable [id number] IMPRESSION: Mildly improved exam from 3 days ago.
[2022-04-04] MEDS: docusate sodium 100 mg Capsule 200 MG PO (05:09)
[2022-04-04] MEDS: levothyroxine 100 mcg Tablet PO (05:10)
[2022-04-04] MEDS: amlodipine 10 mg Tablet 5 MG PO (05:10)
[2022-04-04 06:21] LABS: Basophils % 0.5 %; Eosinophils # 0.3 10^3/uL (0.0-0.8); Eosinophils % 3.3 %; Hematocrit 36.9 % (37.0-47.0); Hemoglobin 11.4 g/dL (11.5-15.3); Lymphocytes # 1.2 10^3/uL (0.8-4.8); Mean Corpuscular HGB Conc 30.9 g/dL (30.0-36.0); Mean Corpuscular Volume 97.1 fl (81-99); Mean Platelet Volume 12.1 fL (7.4-10.4); Monocytes % 13.1 %; Neutrophils # 5.34 10^3/uL (1.8-7.7); Neutrophils % 67.6 %; Nucleated Red Blood Cells % 0 %; Platelet Count 164 10^3/cmm (130-400); Red Cell Distribution Width 14.5 % (12.1-15.1); White Blood Count 7.9 10^3/uL (4.0-10.0)
[2022-04-04 06:34] LABS: Glucose Point of Care 111 mg/dL (70-110)
[2022-04-04 06:37] LABS: Anion Gap 13.6 (5-19); Blood Urea Nitrogen 25 mg/dL (8-23); Calcium 9.3 mg/dL (8.5-10.5); Carbon Dioxide 29 mmol/L (22-29); Chloride 97 mmol/L (98-107); Glucose 103 mg/dL (65-115); Osmolality Calculated 287 mOsm/kg (285-295); Potassium 3.6 mmol/L (3.5-5.1); Sodium 136 mmol/L (136-145)
[2022-04-04] MEDS: potassium chloride ER 20 mEq Tablet 40 MEQ PO (09:04)
[2022-04-04] MEDS: apixaban 5 mg Tablet PO ×2 (09:04→20:18)
[2022-04-04] MEDS: metoprolol tartrate 50 mg Tablet 25 MG PO ×2 (09:04→18:37)
[2022-04-04] MEDS: TRAMadol 50 mg Tablet PO ×2 (09:04→18:37)
--- NOTE | 2022-04-04 10:31 | PC.CHAP ---
Pastoral Care Encounter/Spiritual Assessment Type of Contact [] Declined used car make ready worker visit [] Patient/Family/Request visit [] Outpatient visit [] Follow-up visit [] Physician referral [] Code/Alert [x] Routine visit [] Staff referral [] Actively dying [] Patient sleeping [] Family support [] [] Out of room [] Palliative care [] [] Receiving care in room [] Pre-surgical visit [] Trauma [] Long length of stay [] ICU visit [] Other: Relational/Emotional Strength [x] Patient feels connected with others/family/visitors/staff [] Distress [] Loneliness/isolation [] Abandonment Spirituality of Patient []x Person of Dayanara [x] Attends Temple of their [place] [x] Believes in Prayer [] Reads Bible or Tenriism materials [] There are Spiritual issues to be addressed Claims Director Interventions [x] Prayer [x] Active listening [x] Non-anxious presence [x] Spiritual/emotional support [] Crisis/trauma care [] Spiritual counseling [] Bereavement support [] Provided bereavement packet [] Provided Bible/devotional materials [] Provided toy/stuffed animal, coloring book to patient or family member [] Provided Communion [] Anointing/[place] [] Salvation [] Completed spiritual assessment [] Other: Impact on Illness or Injury [] Angry [] Fearful [] Anxious [] Often cries [] Exhaustion [] Unable to work [] Unable to attend anglican [] Unable to walk/stand [] Unable to read [] Unable to drive [] Unable to eat/drink [] Unable to sleep [] Unable to be with family [] Patient intubated [] Other: Summary Time spent with patient 15 min
[2022-04-04 11:11] LABS: Glucose Point of Care 119 mg/dL (70-110)
[2022-04-04] MEDS: acetaminophen 325 mg Tablet 650 MG PO (12:22)
[2022-04-04 14:30] LABS: Bilirubin Urine Neg (Negative); Blood Urine Neg (Negative); Glucose Urine UA Norm (Normal); Ketones Urine Negative (Negative); Leukocyte Esterase Urine 2+ (Negative); Nitrate Urine Negative (Negative); Protein Urine Neg (Negative); Urine Appearance Clear (CLEAR); Urine Color Straw (Yellow); Urobilinogen Urine Norm (Negative); pH Urine 9 (5-7)
[2022-04-04 14:31] LABS: Add Urine Culture? No; Bacteria Urine 1+ /hpf; Squamous Epithelial Cell Urine 0-4 /hpf (0-5); Sulfosalicylic Acid Urine Negative (Negative)
--- NOTE | 2022-04-04 15:30 | P.PN_ITS ---
Subjective Subjective: Patient developed orthostatic hypotension today. At rest her blood pressure was noted to be 120/65. Upon standing up dropped as low as 69/35. Patient was symptomatic, felt dizzy at the time. Amlodipine has been placed on hold. Losartan was originally discontinued. Metoprolol dose will be further reduced to 12.5 mg p.o. twice daily. Medications: Reviewed: Yes Medication Review Details: Generic Name Dose Route Start Last Admin Trade Name Freq PRN Reason Stop Dose Admin Acetaminophen 650 mg 03/29/22 17:15 04/03/22 09:20 Acetaminophen 32 5 Mg Tablet PO 650 mg Q6H PRN Administration Mild/Mod Pain Or Temp >/= 101 Albuterol/Ipratrop ium 3 ml 03/29/22 20:00 04/03/22 14:32 Ipratropium-Albu terol 3 Ml Neb INHALATION 3 ml Q6H.RESP EMILIA Administration Apixaban 5 mg 03/30/22 21:00 04/03/22 09:19 Apixaban 5 Mg Ta blet PO 5 mg BID@0900,2100 EMILIA Administration Docusate Sodium 200 mg 03/30/22 06:00 04/03/22 05:45 Docusate Sodium 100 Mg Capsule PO 200 mg QAM EMILIA Administration Furosemide 40 mg 04/02/22 10:10 04/02/22 10:21 Furosemide 40 Mg Tablet PO 40 mg BID@08,16 EMILIA Administration Insulin Human Lisp ro 0 unit 03/29/22 18:00 04/03/22 13:06 Insulin Lispro 1 00 Unit/1 Ml SUBCUT Not Given TIDWM [facility] Protocol Lanolin 1 applic 03/31/22 07:15 03/31/22 08:05 Lanolin Oint 7 G m TOPICAL 1 applic PRN PRN Administration DRYNESS Levothyroxine Sodi um 100 mcg 03/30/22 06:00 04/03/22 05:46 Levothyroxine 10 0 Mcg Tablet PO 100 mcg QAM EMILIA Administration Metoprolol Tartrat e 25 mg 04/02/22 10:20 04/03/22 09:18 Metoprolol Tartr ate 50 Mg Tablet PO 25 mg BID EMILIA Administration Ondansetron HCl 4 mg 03/29/22 17:15 04/02/22 22:19 Ondansetron 2 Mg /Ml Sdv 2 Ml IVP 4 mg Q8H PRN Administration vomiting, or N/V if npo Potassium Chloride 40 meq 03/31/22 11:40 04/03/22 11:25 Potassium Chlori de Er 20 Meq Table t PO Not Given DAILY EMILIA Tramadol HCl 50 mg 03/29/22 18:00 04/03/22 09:19 Tramadol 50 Mg T ablet PO Not Given BID EMILIA Vitals/I&O/Wt Last Vital Signs Temp 97.9 F 04/05/22 07:36 Pulse 76 04/05/22 09:11 Resp 18 04/05/22 09:08 BP 123/73 04/05/22 09:11 Pulse Ox 99 04/05/22 09:08 O2 Del Method 04/05/22 09:08 O2 Flow Rate 2 04/05/22 09:08 FiO2 25 03/31/22 05:25 04/04/22 04/05/22 04/05/22 22:59 06:59 14:59 Intake Total 120 / 240 Output Total 900 / 900 Balance 120 / 240 -900 / -660 Weight last 48 hrs Weight 93.712 kg Weight 95.844 kg Physical Exam Narrative: General: No acute distress, AO x3 HEENT: PERRLA, pupils bilaterally equal and reactive, pallors not present Chest: Normal vesicular breath sounds, no added sounds, equal good air entry bilaterally CVS: S1-S2 regular, no murmurs, no tachycardia, no gallops, no rubs Abdomen: Soft, nontender, no organomegaly, bowel sounds present Neuro: No focal deficits, no facial deformity, AO x3, does not wish to get out of bed due to dizziness Urinary Catheter Management: Simon: Cath Placed During This Visit: yes Reason for Continuing Indwelling Catheter: Accurate Measurement of Urinary Output in Critically Ill Patients Urinary Catheter Date of Insertion: 03/29/22 Urinary Catheter Time of Insertion: 17:00 Data 04/05/22 05:19 04/05/22 05:19 A&P Assessment and plan (1) Diabetes: (2) Morbid obesity: (3) Essential hypertension: (4) Decompensated heart failure: (5) Hypothyroidism: (6) Mild cognitive impairment with memory loss: (7) History of atrial fibrillation: (8) Respiratory failure with hypoxia and hypercapnia: (9) Altered mental status: Plan 86 year old female with past medical history of hypertension and diabetes paroxysmal A. fib dyslipidemia morbid obesity dementia, hypothyroidism, history of lobectomy, was brought in from home with chief complaint of worsening shortness of breath started this Monday, according to the daughter who provided the history over the phone, she has been complaining of difficulty catching breath, was having difficulty with even is speaking a sentence, has been extremely drowsy in the last couple of days, was also complaining of chest pain with inspiration, she denied any fever, chills, cough, nausea vomiting abdominal. Assessment: #Respiratory failure with hypoxia and hypercapnia secondary to decompensated heart failure now resolved. Needed BiPAP. #Decompensated heart failure with preserved ejection fraction. Now improving after IV diuresis. Most recently patient was on p.o. Lasix. However developed orthostatic hypotension following which Lasix has been placed on hold. #Acute metabolic encephalopathy secondary to hypercapnia, now resolved #History of paroxysmal atrial fibrillation, currently rate controlled. Reducing metoprolol down to 12.5 mg p.o. twice daily. Continuing Eliquis. #Orthostatic hypotension noted today. Likely as a result of volume loss from diuresis versus antihypertensives. Holding amlodipine. Reduce metoprolol as noted above. Losartan to remain on hold. Lasix additionally on hold. History of hypothyroidism History of morbid obesity Likely CKD versus KALANI on CKD #Noted to have vulvovaginal candidiasis, will add fluconazole 150 mg p.o. daily. Remove Simon catheter. Patient is extremely hesitant to remove her Simon because of her deconditioning she states that it is hard for her to make it to the bathroom. At baseline patient has significant arthritis and limited mobility even prior to this current admission. Per her son patient has mainly been moving from her bed to bedside commode and with great difficulty ambulating to the bathroom. Counseled extensively that keeping the Simon in for long-term is not can abuse solution. She is going to need extensive therapy for her deconditioning to get to the point where she is able to perform some ADLs and use the bathroom or bedside commode independently. Keeping the Simon in beyond a certain point is going to predispose her to UTIs and urinary retention. CODE STATUS: Full code DVT prophylaxis: Already on Eliquis Disposition: Given her current functional status, patient will likely need SNF placement,family also wants patient to go to SNF. Attestations Medical Necessity Statement*: Orthostatic hypotension today, adjust antihypertensives, closely monitor, disposition planning ongoing. Coding Level of Care Code Acute [facility] for [facility] Diagnoses Diabetes E11.9 Morbid obesity E66.01 Essential hypertension I10 Decompensated heart failure I50.9 Hypothyroidism E03.9 Mild cognitive impairment with memory loss G31.84 History of atrial fibrillation Z86.79 Respiratory failure with hypoxia and hypercapnia J96.91; J96.92 Altered mental status R41.82
[2022-04-04 16:10] LABS: Glucose Point of Care 110 mg/dL (70-110)
[2022-04-04] MEDS: ALPRAZolam 0.5 mg Tablet 0.25 MG PO (20:18)
[2022-04-04 21:53] LABS: Glucose Point of Care 91 mg/dL (70-110)
[2022-04-05] VITALS (110 sets, daily range): BP systolic 113–146; BP diastolic 62–74; PULSE 61–165; RESP 16–18; TEMP 36.4–36.7; O2SAT 78–100
[2022-04-05] MEDS: ipratropium-albuterol 3 mL Neb INHALATION ×4 (02:41→20:46)
[2022-04-05 05:38] LABS: Basophils % 0.5 %; Eosinophils # 0.3 10^3/uL (0.0-0.8); Eosinophils % 3.8 %; Hematocrit 37.8 % (37.0-47.0); Hemoglobin 11.9 g/dL (11.5-15.3); Lymphocytes # 1.2 10^3/uL (0.8-4.8); Lymphocytes % 14.2 %; Mean Corpuscular HGB Conc 31.5 g/dL (30.0-36.0); Mean Corpuscular Volume 95.2 fl (81-99); Mean Platelet Volume 11.6 fL (7.4-10.4); Monocytes # 1.1 10^3/uL (0.2-0.9); Monocytes % 12.7 %; Neutrophils # 5.62 10^3/uL (1.8-7.7); Neutrophils % 68.2 %; Nucleated Red Blood Cells % 0 %; Platelet Count 211 10^3/cmm (130-400); Red Blood Count 3.97 10^6/uL (4.1-5.3); Red Cell Distribution Width 14.3 % (12.1-15.1); White Blood Count 8.2 10^3/uL (4.0-10.0)
[2022-04-05 05:58] LABS: Blood Urea Nitrogen 20 mg/dL (8-23); Calcium 9.7 mg/dL (8.5-10.5); Carbon Dioxide 28 mmol/L (22-29); Chloride 101 mmol/L (98-107); Glucose 96 mg/dL (65-115); Osmolality Calculated 290 mOsm/kg (285-295); Sodium 139 mmol/L (136-145)
[2022-04-05 05:59] LABS: Anion Gap 13.8 (5-19); Potassium 3.8 mmol/L (3.5-5.1)
[2022-04-05] MEDS: amlodipine 10 mg Tablet 5 MG PO (06:19)
[2022-04-05] MEDS: docusate sodium 100 mg Capsule 200 MG PO (06:19)
[2022-04-05 06:20] LABS: Glucose Point of Care 81 mg/dL (70-110)
[2022-04-05] MEDS: levothyroxine 100 mcg Tablet PO (06:20)
--- NOTE | 2022-04-05 08:47 | P.DS_ITS ---
Discharge Providers Date of Admission: 03/29/22 18:09 Date of Discharge: April 05, 2022 Attending Provider at Admission: London Xiao MD Attending Provider at Discharge: Nellie Serrato MD Primary Care Provider: Deondre Lowery DO Diagnoses at Discharge Discharge Diagnosis (1) Diabetes: Status: Acute (2) Morbid obesity: Status: Acute (3) Essential hypertension: Status: Acute (4) Decompensated heart failure: Status: Acute (5) Hypothyroidism: Status: Acute (6) Mild cognitive impairment with memory loss: Status: Acute (7) History of atrial fibrillation: Status: Acute (8) Respiratory failure with hypoxia and hypercapnia: Status: Acute (9) Altered mental status: Status: Acute Reason for Visit Reason for Visit: Sebastián sent for chest pain Brief History: Taken from H&P: Whit Orozco is a 86 year old female with past medical history of hypertension and diabetes paroxysmal A. fib dyslipidemia morbid obesity dementia, hypothyroidism, history of lobectomy, was brought in from home with chief complaint of worsening shortness of breath, has been extremely drowsy in the last couple of days, was also complaining of chest pain with inspiration, she denied any fever, chills, cough, nausea vomiting abdominal. X-ray chest done in the ER: Has shown bilateral pulmonary vascular congestion cardiomegaly, bilateral pleural effusion right greater than left EKG has shown A. fib with slow ventricular response Pertinent labs: WBC 7.4, H&H 11/38 PLT : 193 , serum sodium 144 potassium :4 , BUN and serum creatinine: 22/1.2 , Baseline troponin 31 proBNP 7924 ABG : pH 7.29, PCO2 82, PO2 108 , 40% FiO2 Hospital Course Hospital Course Patient was admitted to the hospital in view of acute respiratory failure with hypoxia and hypercapnia secondary to decompensated heart failure. She also had evidence of metabolic encephalopathy related to her hypercapnia. She received diuresis with IV Lasix, needed to be placed on BiPAP upon admission following which her hypercapnia slowly improved. Echocardiogram revealed normal LV size and systolic function, no R WMA, LVEF 50 to 55%.Infectious work-up remain negative, there was no sign of pneumonia. She was overall noted to be 8 L negative. Metoprolol dose had to be adjusted down to 25 mg p.o. twice daily as she developed bradycardia. It was further reduced to 12.5 mg p.o. twice daily at the time of discharge as patient was noted to have orthostatic hypotension on April 04, 2022. Additionally amlodipine has been placed on hold due to the orthostatic hypotension. Losartan has been on hold during course of admission due to Yas upon admission (peak cr 1.6--> imporved to 1.1) Her serial x-rays showed significant improvement in pulmonary vascular congestion and her bilateral pleural effusions reduced. She has been transition to p.o. Lasix. She was evaluated by physical therapy, given her poor functional status and decreased endurance, it was thought that she would benefit from continued skilled therapy and is being discharged to SNF. Physical Exam Narrative: General: No acute distress, AO x3 HEENT: PERRLA, pupils bilaterally equal and reactive, pallors not present Chest: Normal vesicular breath sounds, no added sounds, equal good air entry bilaterally CVS: S1-S2 regular, no murmurs, no tachycardia, no gallops, no rubs Abdomen: Soft, nontender, no organomegaly, bowel sounds present Neuro: No focal deficits, no facial deformity, AO x3, power 5/5 in all limbs Urinary Catheter Management: Simon: Cath Placed During This Visit: yes Reason for Continuing Indwelling Catheter: Accurate Measurement of Urinary Output in Critically Ill Patients Urinary Catheter Date of Insertion: 03/29/22 Urinary Catheter Time of Insertion: 17:00 Discharge Data Studies Completed and Pending Completed Studies During Hospitalization Category Date Time Status XR chest 1V portable [id number] Routine Exams 04/01/22 08:23 Completed XR chest 1V portable [id number] Routine Exams 04/04/22 05:00 Completed XR chest 1V portable [id number] Stat Exams 03/29/22 14:37 Completed US echo complete [CV. echo complete* [id number]] Routine Ultrasound 03/29/22 17:22 Completed Pending at discharge Category Date Time Status SARS Covid-2 Antigen Stat Lab 04/05/22 08:22 Uncollected Radiology Impressions Chest X-Ray 04/04/22 05:00 IMPRESSION: Mildly improved exam from 3 days ago. Laboratory Results WBC 8.2 10^3/uL (4.0-10.0) 04/05/22 05:19 RBC 3.97 10^6/uL (4.1-5.3) L 04/05/22 05:19 Hgb 11.9 g/dL (11.5-15.3) 04/05/22 05:19 Hct 37.8 % (37.0-47.0) 04/05/22 05:19 MCV 95.2 fl (81-99) 04/05/22 05:19 MCH 30.0 pg (28.0-34.0) 04/05/22 05:19 MCHC 31.5 g/dL (30.0-36.0) 04/05/22 05:19 RDW 14.3 % (12.1-15.1) 04/05/22 05:19 Plt Count 211 10^3/cmm (130-400) 04/05/22 05:19 MPV 11.6 fL (7.4-10.4) H 04/05/22 05:19 Neut % (Auto) 68.2 % 04/05/22 05:19 Lymph % (Auto) 14.2 % 04/05/22 05:19 Thayer % (Auto) 12.7 % 04/05/22 05:19 Eos % (Auto) 3.8 % 04/05/22 05:19 Baso % (Auto) 0.5 % 04/05/22 05:19 Neut # (Auto) 5.62 10^3/uL (1.8-7.7) 04/05/22 05:19 Lymph # (Auto) 1.2 10^3/uL (0.8-4.8) 04/05/22 05:19 Thayer # (Auto) 1.1 10^3/uL (0.2-0.9) H 04/05/22 05:19 Eos # (Auto) 0.3 10^3/uL (0.0-0.8) 04/05/22 05:19 Baso # (Auto) 0.0 10^3/uL (0.0-0.1) 04/05/22 05:19 Nucleated RBC % (auto) 0 % 04/05/22 05:19 Nucleated RBCs # 0.0 /100WBC 04/05/22 05:19 Specimen Type Arterial 03/31/22 05:00 Sample Site Radial, right 03/31/22 05:00 ABG pH 7.55 (7.35-7.45) H 03/31/22 05:00 ABG pCO2 49.6 mmHg (35-45) H 03/31/22 05:00 ABG pO2 137.0 mmHg (80.0-100.0) H 03/31/22 05:00 ABG HCO3 42.9 mmol/L (22-26) H 03/31/22 05:00 ABG O2 Saturation 99.9 03/31/22 05:00 ABG Base Excess 18.1 mmol/L (-2.0-2.0) H 03/31/22 05:00 Peyman Test Pos 03/31/22 05:00 A-a O2 Gradient 6.8 mmHg (5-10) 03/31/22 05:00 Hematocrit 36.0 % (37-47) L 03/31/22 05:00 Hgb O2 Saturation > 98.5 % (95-100) 03/31/22 05:00 Carboxyhemoglobin < 1.0 %THgb (0.4-20.1) 03/31/22 05:00 Methemoglobin 0.3 % (0.4-1.5) L 03/31/22 05:00 Total Hemoglobin 11.7 g/dL (12-16) L 03/31/22 05:00 Sodium 146.0 mmol/L (131-143) H 03/31/22 05:00 Potassium 3.2 mmol/L (3.5-5.0) L 03/31/22 05:00 Glucose 81.0 mg/dL (70-115) 03/31/22 05:00 Ionized Calcium 1.1 mmol/L (1.1-1.4) 03/31/22 05:00 O2 Delivery Device Bipap 03/31/22 05:00 O2 Liters/Min 4.0 % 03/29/22 15:20 FiO2 35.0 % 03/31/22 05:00 Order Processing Clerk ID Anonymous 03/31/22 05:00 Sodium 139 mmol/L (136-145) 04/05/22 05:19 Potassium 3.8 mmol/L (3.5-5.1) 04/05/22 05:19 Chloride 101 mmol/L (98-107) 04/05/22 05:19 Carbon Dioxide 28 mmol/L (22-29) 04/05/22 05:19 Anion Gap 13.8 (5-19) 04/05/22 05:19 BUN 20 mg/dL (8-23) 04/05/22 05:19 Creatinine 1.1 mg/dL (0.5-0.9) H 04/05/22 05:19 GFR Calculation Not Reportable 04/05/22 05:19 Glucose 96 mg/dL (65-115) 04/05/22 05:19 POC Glucose 81 mg/dL (70-110) 04/05/22 06:17 Calculated Osmolality 290 mOsm/kg (285-295) 04/05/22 05:19 Calcium 9.7 mg/dL (8.5-10.5) 04/05/22 05:19 Magnesium 2.2 mg/dL (1.7-2.3) 04/03/22 03:00 Total Bilirubin 0.5 mg/dL (0.15-1.2) 04/01/22 05:30 AST 19 U/L (0-32) 04/01/22 05:30 ALT 6 U/L (0-33) 04/01/22 05:30 Alkaline Phosphatase 81 U/L (35-105) 04/01/22 05:30 Troponin T Baseline 31 ng/L (0-10) H 03/29/22 14:27 Troponin T 120 Minute 23.31 ng/L (0-10) H 03/29/22 16:50 Delta Troponin T -7.69 ABS# (0-10) L 03/29/22 16:50 Troponin T Hi Sens 6Hr 27.46 ng/L (0-10) H 03/29/22 20:21 Troponin T Hi Sens 6Hr Delta -3.54 ng/L (0-12) L 03/29/22 20:21 NT-Pro-B Natriuret Pep 7924 pg/mL (0-450) H 03/29/22 14:27 Total Protein 5.9 g/dL (6.6-8.7) L 04/01/22 05:30 Albumin 3.2 g/dL (3.5-5.2) L 04/01/22 05:30 Globulin 2.7 g/dL (1.3-4.6) 04/01/22 05:30 Procalcitonin 0.07 ng/mL (0-0.5) 03/30/22 04:23 TSH 2.79 uIU/mL (0.27-4.20) 03/30/22 04:23 Urine Color Straw (Yellow) 04/04/22 12:30 Urine Appearance Clear (CLEAR) 04/04/22 12:30 Urine pH 9 (5-7) H 04/04/22 12:30 Ur Specific [place] 1.010 (1.005-1.030) 04/04/22 12:30 Urine Protein Neg (Negative) 04/04/22 12:30 Urine Glucose (UA) Norm (Normal) 04/04/22 12:30 Urine Ketones Negative (Negative) 04/04/22 12:30 Urine Blood Neg (Negative) 04/04/22 12:30 Urine Nitrate Negative (Negative) 04/04/22 12:30 Urine Bilirubin Neg (Negative) 04/04/22 12:30 Prot Sulfosalicylic Acd Negative (Negative) 04/04/22 12:30 Urine Urobilinogen Norm mg/dL (Negative) 04/04/22 12:30 Ur Leukocyte Esterase 2+ (Negative) H 04/04/22 12:30 Urine RBC None /hpf (0-2) 04/04/22 12:30 Urine WBC 10-15 /hpf (0-5) H 04/04/22 12:30 Ur Squamous Epith Cells 0-4 /hpf (0-5) H 04/04/22 12:30 Amorphous Sediment Not Reportable 04/04/22 12:30 Urine Bacteria 1+ /hpf (NONE) H 04/04/22 12:30 Vitals Last Vital Signs Temp 97.9 F 04/05/22 07:36 Pulse 71 04/05/22 07:36 Resp 18 04/05/22 07:36 BP 129/74 04/05/22 07:36 Pulse Ox 100 04/05/22 07:36 O2 Del Method 04/05/22 02:41 O2 Flow Rate 2 04/05/22 02:41 FiO2 25 03/31/22 05:25 Discharge Plan Discharge Patient Disposition: Xfer SNF Condition: Stable Prescriptions: New metoprolol tartrate 25 mg Tablet 12.5 mg PO BID 30 Days Qty: 30 0RF Continued hydrocodone-acetaminophen 5-325 mg tablet 1 tab PO Q4H PRN (Reason: Pain) levothyroxine [Synthroid] 100 mcg tablet 100 mcg PO QAM multivitamin [Daily Multi-Vitamin] Tablet 1 tab PO QAM glucosamine sulfate [Glucosamine] 500 mg tablet 500 mg PO BID docusate sodium [Stool Softener] 100 mg capsule 200 mg PO QAM albuterol sulfate [ProAir HFA] 90 mcg/actuation HFA aerosol inhaler 2 puff inhalation Q4H PRN (Reason: Shortness Of Breath) cholecalciferol (vitamin D3) 50 mcg (2,000 unit) capsule 50 mcg PO QAM (DME) oxygen-air delivery systems Device See Rx Instructions .Route Rx Instructions: As directed furosemide 20 mg tablet 20 mg PO BID Qty: 180 3RF pregabalin 100 mg capsule 100 mg PO BID tramadol 50 mg tablet 50 mg PO BID Eliquis 5 mg tablet 5 mg PO QAM Discontinued amlodipine 10 mg tablet 10 mg PO QAM losartan 50 mg tablet 50 mg PO QAM metoprolol tartrate 50 mg tablet 50 mg PO BID Qty: 180 3RF meloxicam 7.5 mg tablet 7.5 mg PO QAM Discharge Orders: Discharge Order (Routine); Ordered 04/05/22 Ordered By: Nellie Serrato Referrals: [facility] [Outside] Deondre Lowery DO [Primary Care Provider] - Patient Instructions: Opioid Safety Discharge Attestations Time Spent in Discharge Care*: greater than 30 min Quality Metrics Clinical Quality Measures [ No reported AMI, CVA or VTE this stay] Coding Level of Care Code Acute [facility] note Diagnoses Diabetes E11.9 Morbid obesity E66.01 Essential hypertension I10 Decompensated heart failure I50.9 Hypothyroidism E03.9 Mild cognitive impairment with memory loss G31.84 History of atrial fibrillation Z86.79 Respiratory failure with hypoxia and hypercapnia J96.91; J96.92 Altered mental status R41.82
[2022-04-05] MEDS: potassium chloride ER 20 mEq Tablet 40 MEQ PO (09:32)
[2022-04-05] MEDS: apixaban 5 mg Tablet PO ×2 (09:32→21:44)
[2022-04-05] MEDS: fluconazole 100 mg Tablet 150 MG PO (09:32)
[2022-04-05] MEDS: TRAMadol 50 mg Tablet PO ×2 (09:32→17:59)
[2022-04-05 09:33] LABS: SARS Covid-2 Antigen negative (Negative)
[2022-04-05] MEDS: sodium chloride 0.9% 1,000 ML 50 ML IV (09:36)
[2022-04-05] MEDS: sodium chloride 0.9% 250 ML IV (09:37)
--- NOTE | 2022-04-05 09:48 | PC.NURSE ---
received order to check orthostatic bp's.pt became very dizzy when went to sitting position.unable to check standing bp.dr gage notified.she ordered 250 cc ns bolus,hold am dose of metoprolol...start fluids at 50 cc/hr after bolus.
--- NOTE | 2022-04-05 10:35 | PC.SOCIAL ---
IMM Updated Updated pt on IMM. No questions voiced. Provided pt a copy. Initialed, dated, & timed copy in chart.
--- NOTE | 2022-04-05 11:33 | PC.NURSE ---
pt unable to stand for orthostatic bp...dizzy..but not as dizzy as this morning
[2022-04-05 11:34] LABS: Glucose Point of Care 89 mg/dL (70-110)
[2022-04-05 16:58] LABS: Glucose Point of Care 80 mg/dL (70-110)
[2022-04-05] MEDS: metoprolol tartrate 25 mg Tablet 12.5 MG PO (17:59)
[2022-04-05 20:41] LABS: Glucose Point of Care 95 mg/dL (70-110)
[2022-04-05] MEDS: ALPRAZolam 0.5 mg Tablet 0.25 MG PO (21:44)
[2022-04-06] VITALS (56 sets, daily range): BP systolic 119–139; BP diastolic 56–84; PULSE 0–192; RESP 16–20; TEMP 36.6–36.7; O2SAT 87–100
[2022-04-06] MEDS: sodium chloride 0.9% 1,000 ML 50 ML IV (02:01)
[2022-04-06] MEDS: ipratropium-albuterol 3 mL Neb INHALATION ×3 (02:19→14:48)
[2022-04-06] MEDS: acetaminophen 325 mg Tablet 650 MG PO (03:54)
[2022-04-06] MEDS: levothyroxine 100 mcg Tablet PO (06:49)
[2022-04-06] MEDS: docusate sodium 100 mg Capsule 200 MG PO (06:49)
[2022-04-06 07:05] LABS: Glucose Point of Care 79 mg/dL (70-110)
[2022-04-06] MEDS: apixaban 5 mg Tablet PO (09:36)
[2022-04-06] MEDS: TRAMadol 50 mg Tablet PO (09:36)
[2022-04-06] MEDS: metoprolol tartrate 25 mg Tablet 12.5 MG PO (09:37)
[2022-04-06] MEDS: meclizine 25 mg tablet PO (10:38)
[2022-04-06 11:51] LABS: Glucose Point of Care 84 mg/dL (70-110)
--- NOTE | 2022-04-06 14:11 | P.DS_ITS ---
Discharge Providers Date of Admission: 03/29/22 18:09 Date of Discharge: April 06, 2022 Attending Provider at Admission: London Xiao MD Attending Provider at Discharge: Nellie Serrato MD Primary Care Provider: Deondre Lowery DO Diagnoses at Discharge Discharge Diagnosis (1) Diabetes: Status: Acute (2) Morbid obesity: Status: Acute (3) Essential hypertension: Status: Acute (4) Decompensated heart failure: Status: Acute (5) Hypothyroidism: Status: Acute (6) Mild cognitive impairment with memory loss: Status: Acute (7) History of atrial fibrillation: Status: Acute (8) Respiratory failure with hypoxia and hypercapnia: Status: Acute (9) Altered mental status: Status: Acute Reason for Visit Reason for Visit: Sebastián sent for chest pain Hospital Course Hospital Course Patient was admitted to the hospital in view of acute respiratory failure with hypoxia and hypercapnia secondary to decompensated heart failure. She also had evidence of metabolic encephalopathy related to her hypercapnia. She received diuresis with IV Lasix, needed to be placed on BiPAP upon admission following which her hypercapnia slowly improved. Echocardiogram revealed normal LV size and systolic function, no R WMA, LVEF 50 to 55%.Infectious work-up remain negative, there was no sign of pneumonia. She was overall noted to be 8 L negative. Metoprolol dose had to be adjusted down to 25 mg p.o. twice daily as she developed bradycardia. It was further reduced to 12.5 mg p.o. twice daily at the time of discharge as patient was noted to have orthostatic hypotension on April 04, 2022. Additionally amlodipine has been placed on hold due to the orthostatic hypotension. Losartan has been on hold during course of admission due to Yas upon admission (peak cr 1.6--> imporved to 1.1) Her serial x-rays showed significant improvement in pulmonary vascular congestion and her bilateral pleural effusions reduced. She has been transition to p.o. Lasix. She was evaluated by physical therapy, given her poor functional status and decreased endurance, it was thought that she would benefit from continued skilled therapy and is being discharged to SNF. Patient was originally planned to be discharged on April 05, 2022, however she developed orthostatic hypotension and dizziness therefore discharge was canceled. She received 250 cc fluid bolus and was on IV fluids 50 cc an hour. Over the next day she was no longer orthostatic but did complain of significant dizziness with positional changes. 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 She was given a trial of meclizine 25 mg this morning and that did improve her dizziness. She is being discharged today in stable to improved condition. Meclizine 25 mg twice daily as needed has been added to her treatment regimen. She has no other focal neurological deficits. Physical Exam Narrative: General: No acute distress, AO x3 HEENT: PERRLA, pupils bilaterally equal and reactive, pallors not present Chest: Normal vesicular breath sounds, no added sounds, equal good air entry bilaterally CVS: S1-S2 regular, no murmurs, no tachycardia, no gallops, no rubs Abdomen: Soft, nontender, no organomegaly, bowel sounds present Neuro: No focal deficits, no facial deformity, AO x3, power 5/5 in all limbs Urinary Catheter Management: Simon: Cath Placed During This Visit: yes, but has since been removed by the nurse Reason for Continuing Indwelling Catheter: Accurate Measurement of Urinary Output in Critically Ill Patients Urinary Catheter Date of Insertion: 03/29/22 Urinary Catheter Time of Insertion: 17:00 Date Urinary Catheter Removed: 04/05/22 Time Urinary Catheter Discontinued: 09:48 Discharge Data Studies Completed and Pending Completed Studies During Hospitalization Category Date Time Status XR chest 1V portable [id number] Routine Exams 04/01/22 08:23 Completed XR chest 1V portable [id number] Routine Exams 04/04/22 05:00 Completed XR chest 1V portable [id number] Stat Exams 03/29/22 14:37 Completed US echo complete [CV. echo complete* [id number]] Routine Ultrasound 03/29/22 17:22 Completed Radiology Impressions Chest X-Ray 04/04/22 05:00 IMPRESSION: Mildly improved exam from 3 days ago. Laboratory Results WBC 8.2 10^3/uL (4.0-10.0) 04/05/22 05:19 RBC 3.97 10^6/uL (4.1-5.3) L 04/05/22 05:19 Hgb 11.9 g/dL (11.5-15.3) 04/05/22 05:19 Hct 37.8 % (37.0-47.0) 04/05/22 05:19 MCV 95.2 fl (81-99) 04/05/22 05:19 MCH 30.0 pg (28.0-34.0) 04/05/22 05:19 MCHC 31.5 g/dL (30.0-36.0) 04/05/22 05:19 RDW 14.3 % (12.1-15.1) 04/05/22 05:19 Plt Count 211 10^3/cmm (130-400) 04/05/22 05:19 MPV 11.6 fL (7.4-10.4) H 04/05/22 05:19 Neut % (Auto) 68.2 % 04/05/22 05:19 Lymph % (Auto) 14.2 % 04/05/22 05:19 [place] % (Auto) 12.7 % 04/05/22 05:19 Eos % (Auto) 3.8 % 04/05/22 05:19 Baso % (Auto) 0.5 % 04/05/22 05:19 Neut # (Auto) 5.62 10^3/uL (1.8-7.7) 04/05/22 05:19 Lymph # (Auto) 1.2 10^3/uL (0.8-4.8) 04/05/22 05:19 [place] # (Auto) 1.1 10^3/uL (0.2-0.9) H 04/05/22 05:19 Eos # (Auto) 0.3 10^3/uL (0.0-0.8) 04/05/22 05:19 Baso # (Auto) 0.0 10^3/uL (0.0-0.1) 04/05/22 05:19 Nucleated RBC % (auto) 0 % 04/05/22 05:19 Nucleated RBCs # 0.0 /100WBC 04/05/22 05:19 Specimen Type Arterial 03/31/22 05:00 Sample Site Radial, right 03/31/22 05:00 ABG pH 7.55 (7.35-7.45) H 03/31/22 05:00 ABG pCO2 49.6 mmHg (35-45) H 03/31/22 05:00 ABG pO2 137.0 mmHg (80.0-100.0) H 03/31/22 05:00 ABG HCO3 42.9 mmol/L (22-26) H 03/31/22 05:00 ABG O2 Saturation 99.9 03/31/22 05:00 ABG Base Excess 18.1 mmol/L (-2.0-2.0) H 03/31/22 05:00 Peyman Test Pos 03/31/22 05:00 A-a O2 Gradient 6.8 mmHg (5-10) 03/31/22 05:00 Hematocrit 36.0 % (37-47) L 03/31/22 05:00 Hgb O2 Saturation > 98.5 % (95-100) 03/31/22 05:00 Carboxyhemoglobin < 1.0 %THgb (0.4-20.1) 03/31/22 05:00 Methemoglobin 0.3 % (0.4-1.5) L 03/31/22 05:00 Total Hemoglobin 11.7 g/dL (12-16) L 03/31/22 05:00 Sodium 146.0 mmol/L (131-143) H 03/31/22 05:00 Potassium 3.2 mmol/L (3.5-5.0) L 03/31/22 05:00 Glucose 81.0 mg/dL (70-115) 03/31/22 05:00 Ionized Calcium 1.1 mmol/L (1.1-1.4) 03/31/22 05:00 O2 Delivery Device Bipap 03/31/22 05:00 O2 Liters/Min 4.0 % 03/29/22 15:20 FiO2 35.0 % 03/31/22 05:00 Certified Anesthesiologist Assistant ID Anonymous 03/31/22 05:00 Sodium 139 mmol/L (136-145) 04/05/22 05:19 Potassium 3.8 mmol/L (3.5-5.1) 04/05/22 05:19 Chloride 101 mmol/L (98-107) 04/05/22 05:19 Carbon Dioxide 28 mmol/L (22-29) 04/05/22 05:19 Anion Gap 13.8 (5-19) 04/05/22 05:19 BUN 20 mg/dL (8-23) 04/05/22 05:19 Creatinine 1.1 mg/dL (0.5-0.9) H 04/05/22 05:19 GFR Calculation Not Reportable 04/05/22 05:19 Glucose 96 mg/dL (65-115) 04/05/22 05:19 POC Glucose 84 mg/dL (70-110) 04/06/22 11:42 Calculated Osmolality 290 mOsm/kg (285-295) 04/05/22 05:19 Calcium 9.7 mg/dL (8.5-10.5) 04/05/22 05:19 Magnesium 2.2 mg/dL (1.7-2.3) 04/03/22 03:00 Total Bilirubin 0.5 mg/dL (0.15-1.2) 04/01/22 05:30 AST 19 U/L (0-32) 04/01/22 05:30 ALT 6 U/L (0-33) 04/01/22 05:30 Alkaline Phosphatase 81 U/L (35-105) 04/01/22 05:30 Troponin T Baseline 31 ng/L (0-10) H 03/29/22 14:27 Troponin T 120 Minute 23.31 ng/L (0-10) H 03/29/22 16:50 Delta Troponin T -7.69 ABS# (0-10) L 03/29/22 16:50 Troponin T Hi Sens 6Hr 27.46 ng/L (0-10) H 03/29/22 20:21 Troponin T Hi Sens 6Hr Delta -3.54 ng/L (0-12) L 03/29/22 20:21 NT-Pro-B Natriuret Pep 7924 pg/mL (0-450) H 03/29/22 14:27 Total Protein 5.9 g/dL (6.6-8.7) L 04/01/22 05:30 Albumin 3.2 g/dL (3.5-5.2) L 04/01/22 05:30 Globulin 2.7 g/dL (1.3-4.6) 04/01/22 05:30 Procalcitonin 0.07 ng/mL (0-0.5) 03/30/22 04:23 TSH 2.79 uIU/mL (0.27-4.20) 03/30/22 04:23 Urine Color Straw (Yellow) 04/04/22 12:30 Urine Appearance Clear (CLEAR) 04/04/22 12:30 Urine pH 9 (5-7) H 04/04/22 12:30 Ur Specific [place] 1.010 (1.005-1.030) 04/04/22 12:30 Urine Protein Neg (Negative) 04/04/22 12:30 Urine Glucose (UA) Norm (Normal) 04/04/22 12:30 Urine Ketones Negative (Negative) 04/04/22 12:30 Urine Blood Neg (Negative) 04/04/22 12:30 Urine Nitrate Negative (Negative) 04/04/22 12:30 Urine Bilirubin Neg (Negative) 04/04/22 12:30 Prot Sulfosalicylic Acd Negative (Negative) 04/04/22 12:30 Urine Urobilinogen Norm mg/dL (Negative) 04/04/22 12:30 Ur Leukocyte Esterase 2+ (Negative) H 04/04/22 12:30 Urine RBC None /hpf (0-2) 04/04/22 12:30 Urine WBC 10-15 /hpf (0-5) H 04/04/22 12:30 Ur Squamous Epith Cells 0-4 /hpf (0-5) H 04/04/22 12:30 Amorphous Sediment Not Reportable 04/04/22 12:30 Urine Bacteria 1+ /hpf (NONE) H 04/04/22 12:30 SARS-CoV-2 Ag (Rapid) negative (Negative) 04/05/22 09:05 Vitals Last Vital Signs Temp 98.1 F 04/06/22 07:22 Pulse 88 04/06/22 10:44 Resp 18 04/06/22 10:44 BP 130/56 04/06/22 10:44 Pulse Ox 100 04/06/22 10:44 O2 Del Method 04/06/22 08:00 O2 Flow Rate 2 04/06/22 08:00 FiO2 25 03/31/22 05:25 Discharge Plan Discharge Patient Disposition: Xfer SNF Condition: Stable Prescriptions: New metoprolol tartrate 25 mg Tablet 12.5 mg PO BID 30 Days Qty: 30 0RF meclizine 25 mg tablet 25 mg PO BID PRN (Reason: dizziness) 30 Days Qty: 60 0RF Continued hydrocodone-acetaminophen 5-325 mg tablet 1 tab PO Q4H PRN (Reason: Pain) levothyroxine [Synthroid] 100 mcg tablet 100 mcg PO QAM multivitamin [Daily Multi-Vitamin] Tablet 1 tab PO QAM glucosamine sulfate [Glucosamine] 500 mg tablet 500 mg PO BID docusate sodium [Stool Softener] 100 mg capsule 200 mg PO QAM albuterol sulfate [ProAir HFA] 90 mcg/actuation HFA aerosol inhaler 2 puff inhalation Q4H PRN (Reason: Shortness Of Breath) cholecalciferol (vitamin D3) 50 mcg (2,000 unit) capsule 50 mcg PO QAM (DME) oxygen-air delivery systems Device See Rx Instructions .Route Rx Instructions: As directed furosemide 20 mg tablet 20 mg PO BID Qty: 180 3RF pregabalin 100 mg capsule 100 mg PO BID tramadol 50 mg tablet 50 mg PO BID Eliquis 5 mg tablet 5 mg PO QAM Discontinued amlodipine 10 mg tablet 10 mg PO QAM losartan 50 mg tablet 50 mg PO QAM metoprolol tartrate 50 mg tablet 50 mg PO BID Qty: 180 3RF meloxicam 7.5 mg tablet 7.5 mg PO QAM Discharge Orders: Discharge Order (Routine); Ordered 04/05/22 Ordered By: Nellie Serrato Referrals: [facility] [Outside] Deondre Lowery DO [Primary Care Provider] - Patient Instructions: Metoprolol (By mouth), A-fib (Atrial Fibrillation) (DC), Acute Kidney Injury (DC), CHF Stoplight, Opioid Safety Discharge Attestations Time Spent in Discharge Care*: greater than 30 min Quality Metrics Clinical Quality Measures [ No reported AMI, CVA or VTE this stay] Coding Level of Care Code Acute Chg FW DC note Diagnoses Diabetes E11.9 Morbid obesity E66.01 Essential hypertension I10 Decompensated heart failure I50.9 Hypothyroidism E03.9 Mild cognitive impairment with memory loss G31.84 History of atrial fibrillation Z86.79 Respiratory failure with hypoxia and hypercapnia J96.91; J96.92 Altered mental status R41.82
--- NOTE | 2022-04-06 16:45 | PC.NURSE ---
report phoned to [facility].transported to [facility] via [facility] at this time
== END 2022-04-06 16:46 | disposition skilled nursing facility (03) | DRG 291 ==
LOC: ER 16:41 → CSU 18:09
PROVIDERS: Admitting Provider Internal Medicine; Emergency Provider Family Medicine; PCP Electrodiagnostic Medicine; Visit Provider Student in an Organized Health Care Education/Training Program
DX: I13.0 Hypertensive heart and chronic kidney disease with heart failure and stage 1 through stage 4 chronic kidney disease, or unspecified chronic kidney disease (principal); G93.41 Metabolic encephalopathy; I50.33 Acute on chronic diastolic (congestive) heart failure; J96.02 Acute respiratory failure with hypercapnia; J96.01 Acute respiratory failure with hypoxia; N17.9 Acute kidney failure, unspecified; N18.9 Chronic kidney disease, unspecified; E11.22 Type 2 diabetes mellitus with diabetic chronic kidney disease; E66.01 Morbid (severe) obesity due to excess calories; Z68.34 Body mass index [BMI] 34.0-34.9, adult; E03.9 Hypothyroidism, unspecified; F03.90 Unspecified dementia, unspecified severity, without behavioral disturbance, psychotic disturbance, mood disturbance, and anxiety; I48.0 Paroxysmal atrial fibrillation; I95.1 Orthostatic hypotension; H81.09 Meniere's disease, unspecified ear; Z79.891 Long term (current) use of opiate analgesic; Z79.51 Long term (current) use of inhaled steroids; Z79.01 Long term (current) use of anticoagulants; B37.31 Acute candidiasis of vulva and vagina; I27.20 Pulmonary hypertension, unspecified; Z87.891 Personal history of nicotine dependence; E78.5 Hyperlipidemia, unspecified; Z90.2 Acquired absence of lung [part of]
CPT/HCPCS: 36415; 36416; 36600; 51702; 71045; 80048; 80051; 80053; 81001; 82330; 82805; 82962; 83735; 83880; 84145; 84443; 84484; 85025; 87040; 87426; 93005; 93306; 94640; 94660; 96361; 96372; 96374; 96375; 97110; 97162; 97530; 99285; J1815; J1940; J2405; J3480; J7030; J7050; J8597

== ENCOUNTER 2022-07-13 02:00 | Inpatient (IN) | payer MEDICARE, BC, SELFPAY ==
[2022-07-13] VITALS (135 sets, daily range): BP systolic 48–155; BP diastolic 26–125; PULSE 57–275; RESP 4–54; TEMP 36.8–37.2; O2SAT 67–100; BMI 42.0
--- NOTE | 2022-07-13 02:03 | XRR_ITS ---
PROCEDURE INFORMATION: Exam: XR Chest Exam date and time: 07/13/2022 2:08 AM Age: 87 years old Clinical indication: Shortness of breath; Prior surgery; Surgery type: Left upper lobectomy. Gb; Patient HX: Arrival via EMS for SOB. TECHNIQUE: Imaging protocol: Radiologic exam of the chest. Views: 1 view. COMPARISON: CR XR chest 1V portable [id number] 04/04/2022 5:12 AM FINDINGS: Lungs: Increasing jngjv-twcawxq-ribj-left lung base densities and effusions. Pleural spaces: No pneumothorax. Heart/Mediastinum: The heart is quite large. Bones/joints: Moderate spine DJD. Soft tissues: Upper abdominal clips. XR/XR chest 1V portable [id number] IMPRESSION: Increasing areas of kkoix-hupkxpn-wojd-left mid to lower lung atelectasis, edema or pneumonia with effusions.
[2022-07-13 02:15] LABS: Basophils % 0.5 %; Eosinophils % 0.5 %; Hematocrit 40.5 % (37.0-47.0); Hemoglobin 11.6 g/dL (11.5-15.3); Lymphocytes # 1.3 10^3/uL (0.8-4.8); Lymphocytes % 15.5 %; Mean Corpuscular HGB Conc 28.6 g/dL (30.0-36.0); Mean Corpuscular Hemoglobin 29.7 pg (28.0-34.0); Mean Corpuscular Volume 103.8 fl (81-99); Mean Platelet Volume 12.1 fL (7.4-10.4); Monocytes # 0.9 10^3/uL (0.2-0.9); Monocytes % 10.2 %; Neutrophils # 6.03 10^3/uL (1.8-7.7); Neutrophils % 72.3 %; Nucleated Red Blood Cells % 0 %; Platelet Count 158 10^3/cmm (130-400); Red Cell Distribution Width 14.6 % (12.1-15.1); White Blood Count 8.3 10^3/uL (4.0-10.0)
--- NOTE | 2022-07-13 02:15 | ECG_ITS ---
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 Measurements Intervals [place] Rate: 104 P: 0 [place]: 0 QRS: -31 QRSD: 171 T: -68 QT: 540 QTc: 713 Interpretive Statements UNCERTAIN IRREGULAR RHYTHM LEFT AXIS DEVIATION [QRS AXIS < -30] INTRAVENTRICULAR CONDUCTION DELAY [130+ ms QRS DURATION] POSSIBLE ANTERIOR MYOCARDIAL INFARCTION , OF INDETERMINATE AGE [30 ms Q WAVE IN V3/V4, OR R < 0.2 mV IN V4] Compared to ECG 03/30/2022 04:45:13 Left-axis deviation now present Intraventricular conduction delay now present Myocardial infarct finding now present Atrial fibrillation no longer present Indeterminate axis no longer present Possible ischemia no longer present Electronically Signed On 07-13-2022 16:47:37 CDT by Silvestre Gardner M.D. [id number]
--- NOTE | 2022-07-13 02:19 | W.ED.SOB ---
HPI - SOB/Dyspnea General: Chief Complaint: Shortness of Breath/Dyspnea Stated Complaint: respiratory distress Time Seen by Provider: 07/13/22 02:02 Source: patient and EMS Mode of arrival: EMS Limitations: no limitations History of Present Illness: HPI Narrative: 87-year-old female who has history of congestive heart failure he was having increasing shortness of breath she typically wears 2 L oxygen at home she is currently on 6 L of oxygen she denies any cough pain or fever she denies any worsening or improving factors. Associated symptoms: Deny abdominal pain, chest pain, fever(s), nausea or vomiting Review of Systems Const: Denies: fever(s), chills, body aches or change in appetite Eyes: Denies: blurry vision or eye discomfort ENMT: Denies: throat pain or dental pain Card: Denies: chest pain Resp: Reports: dyspnea GI: Denies: abdominal pain, nausea, vomiting or diarrhea : Denies: dysuria Musc: Denies: neck pain or back pain Skin/Breast: Denies: rash Neuro: Denies: headache(s) Psych: Denies: depression [place]/Lymph: Denies: easy bruising All/Imm: Denies: urticaria PFSH ED PFSH: Medical History (Updated 07/13/22 @ 04:35 by Jayne Gibson MD) Anticoagulation adequate with anticoagulant therapy DDD (degenerative disc disease), lumbar Diabetes Dyslipidemia Encounter for long-term opiate analgesic use Essential hypertension senior care (current) use of opiate analgesic Morbid obesity Paroxysmal A-fib Surgical History History of appendectomy History of back surgery History of carpal tunnel surgery of left wrist History of cholecystectomy History of hysterectomy History of knee replacement History of lobectomy of lung History of nephrectomy Family History Other CAD (coronary artery disease) Cancer Diabetes Stroke Social History Smoking and tobacco status: former smoker Second hand smoke exposure: No Alcohol intake: current Alcohol intake frequency: holidays/special occasions only Household members: spouse Marital status: Physical Exam Const: COMMON NORMALS: patient oriented x3 GENERAL APPEARANCE: in distress and ill appearing HENMT: COMMON NORMALS: normocephalic and atraumatic HEAD & SCALP: normocephalic and atraumatic Eye: COMMON NORMALS: Equal, round and reactive pupils present and EOMs intact bilaterally PUPIL: Yes Equal, round and reactive pupils present Neck/C-Spine: COMMON NORMALS: full ROM and supple Chest: COMMONS NORMALS: normal inspection of the chest and normal palpation of entire chest wall Resp: COMMON NORMALS: No retractions and No use of accessory muscles EFFORT & INSPECTION: Yes tachypneic and Yes respiratory distress Cardio: COMMON NORMALS: regular rate, regular rhythm and No murmurs present (Cardio) RATE: regular rate RHYTHM: regular rhythm GI: COMMON NORMALS: Normal to inspection, nondistended, normoactive bowel sounds present, Soft to palpation, non-tender and no masses PALPATION: Yes Soft to palpation Extremity: COMMON NORMALS: normal to inspection and full ROM Neuro: COMMON NORMALS: patient oriented x3, moves all extremities and no focal motor deficits Psych: COMMON NORMALS: mental status grossly normal, Normal thought process present and cooperative THOUGHT PROCESS: Normal thought process present Skin: COMMON NORMALS: no rashes or lesions noted and no wounds GENERAL SKIN EXAM: no rashes or lesions noted Course Vital Signs: Vital signs: Vital Signs Temperature 98.9 F 07/13/22 02:01 Pulse Rate 69 07/13/22 03:39 Respiratory Rate 18 07/13/22 03:33 Blood Pressure 112/50 07/13/22 03:39 Pulse Oximetry 100 07/13/22 03:39 Oxygen Delivery Me thod 07/13/22 03:39 Oxygen Flow Rate 5 07/13/22 02:09 Fraction of Inspir ed Oxygen 50 07/13/22 03:33 MDM - SOB/Dyspnea Medical Decision Making Patient presents here with shortness of breath she is hypercapnic did place her on BiPAP she is improving on the BiPAP does have some edema we will give her Lasix no signs of pneumonia speak to family she is a DNR/DNI I spoke to hospitalist will admit. Lab Data 07/13/22 02:05 07/13/22 02:05 Labs/Radiology: Radiology Impressions Chest X-Ray 07/13/22 02:03 IMPRESSION: Increasing areas of mwofu-pfdobyo-skfr-left mid to lower lung atelectasis, edema or pneumonia with effusions. Laboratory Results WBC 8.3 10^3/uL (4.0-10.0) 07/13/22 02:05 RBC 3.90 10^6/uL (4.1-5.3) L 07/13/22 02:05 Hgb 11.6 g/dL (11.5-15.3) 07/13/22 02:05 Hct 40.5 % (37.0-47.0) 07/13/22 02:05 MCV 103.8 fl (81-99) H 07/13/22 02:05 MCH 29.7 pg (28.0-34.0) 07/13/22 02:05 MCHC 28.6 g/dL (30.0-36.0) L 07/13/22 02:05 RDW 14.6 % (12.1-15.1) 07/13/22 02:05 Plt Count 158 10^3/cmm (130-400) 07/13/22 02:05 MPV 12.1 fL (7.4-10.4) H 07/13/22 02:05 Neut % (Auto) 72.3 % 07/13/22 02:05 Lymph % (Auto) 15.5 % 07/13/22 02:05 [place] % (Auto) 10.2 % 07/13/22 02:05 Eos % (Auto) 0.5 % 07/13/22 02:05 Baso % (Auto) 0.5 % 07/13/22 02:05 Neut # (Auto) 6.03 10^3/uL (1.8-7.7) 07/13/22 02:05 Lymph # (Auto) 1.3 10^3/uL (0.8-4.8) 07/13/22 02:05 [place] # (Auto) 0.9 10^3/uL (0.2-0.9) 07/13/22 02:05 Eos # (Auto) 0.0 10^3/uL (0.0-0.8) 07/13/22 02:05 Baso # (Auto) 0.0 10^3/uL (0.0-0.1) 07/13/22 02:05 Nucleated RBC % (auto) 0 % 07/13/22 02:05 Nucleated RBCs # 0.0 /100WBC 07/13/22 02:05 PT 14.80 SECONDS (12.1-14.9) 07/13/22 02:05 INR 1.13 (0.8-1.2) 07/13/22 02:05 Specimen Type Arterial 07/13/22 04:20 Sample Site Radial, right 07/13/22 04:20 ABG pH 7.25 (7.35-7.45) L 07/13/22 04:20 ABG pCO2 82.3 mmHg (35-45) H* 07/13/22 04:20 ABG pO2 81.3 mmHg (80.0-100.0) 07/13/22 04:20 ABG HCO3 36.4 mmol/L (22-26) H 07/13/22 04:20 ABG Base Excess 6.9 mmol/L (-2.0-2.0) H 07/13/22 04:20 Peyman Test Pos 07/13/22 04:20 Hematocrit 33.4 % (37-47) L 07/13/22 04:20 Hgb O2 Saturation 91.1 % (95-100) L 07/13/22 02:40 Carboxyhemoglobin 1.7 %THgb (0.4-20.1) 07/13/22 02:40 Methemoglobin 0.9 % (0.4-1.5) 07/13/22 02:40 Total Hemoglobin 11.7 g/dL (12-16) L 07/13/22 02:40 O2 Delivery Device Bipap 07/13/22 04:20 O2 Liters/Min 4.0 % 07/13/22 02:40 FiO2 45.0 % 07/13/22 04:20 PEEP 7.0 cmH20 07/13/22 04:20 Client Service Consultant ID [place] 07/13/22 04:20 Sodium 148 mmol/L (136-145) H 07/13/22 02:05 Potassium 4.7 mmol/L (3.5-5.1) 07/13/22 02:05 Chloride 104 mmol/L (98-107) 07/13/22 02:05 Carbon Dioxide 28 mmol/L (22-29) 07/13/22 02:05 Anion Gap 20.7 (5-19) H 07/13/22 02:05 BUN 36 mg/dL (8-23) H 07/13/22 02:05 Creatinine 1.3 mg/dL (0.5-0.9) H 07/13/22 02:05 GFR Calculation Not Reportable 07/13/22 02:05 Glucose 114 mg/dL (65-115) 07/13/22 02:05 Calculated Osmolality 315 mOsm/kg (285-295) H 07/13/22 02:05 Calcium 9.1 mg/dL (8.5-10.5) 07/13/22 02:05 Total Bilirubin 0.4 mg/dL (0.15-1.2) 07/13/22 02:05 AST 22 U/L (0-32) 07/13/22 02:05 ALT 7 U/L (0-33) 07/13/22 02:05 Alkaline Phosphatase 94 U/L (35-105) 07/13/22 02:05 Troponin T Baseline 28 ng/L (0-10) H 07/13/22 02:05 Troponin T 120 Minute 25.09 ng/L (0-10) H 07/13/22 03:52 Delta Troponin T -2.91 ABS# (0-10) L 07/13/22 03:52 NT-Pro-B Natriuret Pep 8945 pg/mL (0-450) H 07/13/22 02:05 Total Protein 6.8 g/dL (6.6-8.7) 07/13/22 02:05 Albumin 4.2 g/dL (3.5-5.2) 07/13/22 02:05 Globulin 2.6 g/dL (1.3-4.6) 07/13/22 02:05 Influenza Type A Ag negative (Negative) 07/13/22 02:25 Influenza Type B Ag negative (Negative) 07/13/22 02:25 SARS-CoV-2 Ag (Rapid) negative (Negative) 07/13/22 02:25 Critical Care Time Critical Care Time: Critical Care Time: Yes Total Critical Care Time: 40 Attestation: The high probability of a clinically significant, sudden or life threatening deterioration of the patient's resp system(s) required my full and direct attention, intervention and personal management. The critical care time is as shown. This time is in addition to time spent performing any reported procedures but includes the following: [x] Data and vital sign review and interpretation [x] Patient assessment, examination and intervention [x] Documentation [x] Medication orders and management Discharge Plan Discharge Patient Disposition: Admitted As Inpatient Clinical Impression: Respiratory failure with hypoxia and hypercapnia, Congestive heart failure Condition: Stable Prescriptions: No Action hydrocodone-acetaminophen 5-325 mg tablet 1 tab PO Q4H PRN (Reason: Pain) levothyroxine [Synthroid] 100 mcg tablet 100 mcg PO QAM multivitamin [Daily Multi-Vitamin] Tablet 1 tab PO QAM glucosamine sulfate [Glucosamine] 500 mg tablet 500 mg PO BID docusate sodium [Stool Softener] 100 mg capsule 200 mg PO QAM albuterol sulfate [ProAir HFA] 90 mcg/actuation HFA aerosol inhaler 2 - 4 puff inhalation Q4H PRN (Reason: Shortness Of Breath) cholecalciferol (vitamin D3) 50 mcg (2,000 unit) capsule 50 mcg PO QAM (DME) oxygen-air delivery systems Device See Rx Instructions .Route Rx Instructions: As directed furosemide 20 mg tablet 20 mg PO BID Qty: 180 3RF Eliquis 5 mg tablet 5 mg PO QAM amlodipine 10 mg tablet 10 mg PO DAILY metoprolol tartrate 50 mg tablet 50 mg PO BID pregabalin 100 mg capsule 100 mg PO BID meloxicam 7.5 mg tablet 7.5 mg PO DAILY tramadol 50 mg tablet 50 mg PO BID Referrals: Deondre Lowery DO [Primary Care Provider] - Coding Level of Care Code ED Supervisor Molding for David Robles
[2022-07-13 02:27] LABS: INR 1.13 (0.8-1.2)
[2022-07-13 02:37] LABS: Albumin Level 4.2 g/dL (3.5-5.2); Alkaline Phosphatase 94 U/L (35-105); Chloride 104 mmol/L (98-107); Potassium 4.7 mmol/L (3.5-5.1); Troponin(5th) Baseline 28 ng/L (0-10)
[2022-07-13 02:44] LABS: Influenza A by IFA negative (Negative); Influenza B by IFA negative (Negative); SARS Covid-2 Antigen negative (Negative)
[2022-07-13 02:48] LABS: ABG PH Result 7.21 (7.35-7.45); Arterial Blood Gas Hematocrit 35.8 % (37-47); Base Excess ABG 6.2 mmol/L (-2.0-2.0); Blood Gas Allen Test Pos; Blood Gas Sample Site Radial, right; Blood Gas Sample Type Arterial; Carboxyhemoglobin 1.7 %THgb (0.4-20.1); HCO3 ABG 36.9 mmol/L (22-26); HGB O2 Sat 91.1 % (95-100); Methemoglobin 0.9 % (0.4-1.5); Oxygen Device NC; PO2 ABG 69.9 mmHg (80.0-100.0); Total Hemoglobin 11.7 g/dL (12-16)
[2022-07-13] MEDS: LORazepam 2 mg/mL INJ 1 mL 0.5 MG IVP (03:15)
[2022-07-13 03:21] LABS: Aspartate Amino Transferase 22 U/L (0-32); Blood Urea Nitrogen 36 mg/dL (8-23); Calcium 9.1 mg/dL (8.5-10.5); Carbon Dioxide 28 mmol/L (22-29); Globulin 2.6 g/dL (1.3-4.6); Glucose 114 mg/dL (65-115); NT Pro B Type Natriuretic Pept 8945 pg/mL (0-450); Total Bilirubin 0.4 mg/dL (0.15-1.2); Total Protein 6.8 g/dL (6.6-8.7)
[2022-07-13 03:22] LABS: Anion Gap 20.7 (5-19); Osmolality Calculated 315 mOsm/kg (285-295); Sodium 148 mmol/L (136-145)
[2022-07-13 03:39] LABS: Alanine Aminotransferase 7 U/L (0-33)
[2022-07-13 04:14] LABS: Troponin 5 2HR 25.09 ng/L (0-10)
[2022-07-13 04:21] LABS: Troponin 5 2HR Delta -2.91 ABS# (0-10)
[2022-07-13 04:26] LABS: ABG PH Result 7.25 (7.35-7.45); Arterial Blood Gas Hematocrit 33.4 % (37-47); Base Excess ABG 6.9 mmol/L (-2.0-2.0); Blood Gas Allen Test Pos; Blood Gas Sample Site Radial, right; Blood Gas Sample Type Arterial; HCO3 ABG 36.4 mmol/L (22-26); Oxygen Device BIPAP; PO2 ABG 81.3 mmHg (80.0-100.0)
[2022-07-13] MEDS: FUROsemide 10 mg/mL SDV 10mL 60 MG IVP ×2 (04:45→16:08)
--- NOTE | 2022-07-13 04:54 | PM.HP ---
Providers/Chief Complaint Admitting Physician: Johnathan Xie Primary Care Provider: Deondre Lowery DO Chief Complaint: respiratory distress History of Present Illness 87-year-old lady with history of diastolic CHF, paroxysmal A-fib, on anticoagulation, dementia, pressure ulcer, diabetes, HTN, morbid obesity was brought into the ER for evaluation due to shortness of breath, normally on 2 L of oxygen, in ER requiring 6 L, on assessment noted hypoxic and hypercapnic respiratory failure ABG 7.21/93.5/69.9/36.9. Chest x-ray with increasing areas of right greater than left mid to lower lung atelectasis, edema or pneumonia with effusions. She otherwise is afebrile, without leukocytosis. Baseline troponin 28, 2-hour troponin 25. NT proBNP 8945. Creatinine 1.3, close to her recent baselines. Sodium 148. Rapid influenza and COVID antigens negative. With BiPAP support repeat ABG 7.25/82.3/81.3/36.4. She received a dose of Lasix. CODE STATUS was confirmed DNR with patient's daughter. No intubation. Continues on BiPAP, with some discomfort received Ativan. Currently obtunded, unable to provide history or ROS for herself. Family have left. History obtained from ER staff and chart. Review of Systems General: Reports: ROS unobtainable due to medical condition and ROS unobtainable due to mental status Medications/Allergies Home Medications Medication Instructions Recorded Confirmed Last Taken Type docusate sodium 100 mg capsule 200 mg PO QAM 05/22/19 03/29/22 03/29/22 History (Stool Softener) glucosamine sulfate 500 mg tablet 500 mg PO BID 05/22/19 03/29/22 03/29/22 History (Glucosamine) levothyroxine 100 mcg tablet 100 mcg PO QAM 05/22/19 07/13/22 07/12/22 History (Synthroid) multivitamin (Daily Multi-Vitamin 1 tab PO QAM 05/22/19 03/29/22 03/29/22 History tablet) albuterol sulfate 90 mcg/actuation 2 - 4 puff inhalation Q4H PRN 10/29/19 07/13/22 03/27/22 History aerosol inhaler (ProAir HFA) Shortness Of Breath cholecalciferol (vitamin D3) 50 50 mcg PO QAM 10/22/20 03/29/22 03/29/22 History mcg (2,000 unit) capsule oxygen-air delivery systems 01/07/21 03/29/22 Unknown History hydrocodone 5 mg-acetaminophen 325 1 tab PO Q4H PRN Pain 01/13/21 07/13/22 Unknown History mg tablet apixaban 5 mg tablet (Eliquis) 5 mg PO QAM 03/29/22 07/13/22 03/29/22 History furosemide 20 mg tablet 20 mg PO BID #180 tabs 05/17/22 07/13/22 07/13/22 Rx amlodipine 10 mg tablet 10 mg PO DAILY 07/13/22 07/13/22 07/12/22 History meloxicam 7.5 mg tablet 7.5 mg PO DAILY 07/13/22 07/13/22 Unknown History metoprolol tartrate 50 mg tablet 50 mg PO BID 07/13/22 07/13/22 07/12/22 History pregabalin 100 mg capsule 100 mg PO BID 07/13/22 07/13/22 07/12/22 History tramadol 50 mg tablet 50 mg PO BID 07/13/22 07/13/22 Unknown History Allergies Allergy/AdvReac Type Severity Reaction Status Date / Time No Known Allergies Allergy Verified 07/13/22 03:05 PFSH Acute PFSH: Medical History Anticoagulation adequate with anticoagulant therapy DDD (degenerative disc disease), lumbar Diabetes Dyslipidemia Encounter for long-term opiate analgesic use 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 Morbid obesity Paroxysmal A-fib Surgical History History of appendectomy History of back surgery History of carpal tunnel surgery of left wrist History of cholecystectomy History of hysterectomy History of knee replacement History of lobectomy of lung History of nephrectomy Family History Other CAD (coronary artery disease) Cancer Diabetes Stroke Social History Smoking and tobacco status: former smoker Second hand smoke exposure: No Alcohol intake: current Alcohol intake frequency: holidays/special occasions only Household members: spouse Marital status: Vitals/I&O/Wt Last Vital Signs Temp 98.9 F 07/13/22 02:01 Pulse 64 07/13/22 04:30 Resp 20 H 07/13/22 04:30 BP 101/62 07/13/22 04:30 Pulse Ox 97 07/13/22 04:30 O2 Del Method 07/13/22 04:30 O2 Flow Rate 5 07/13/22 02:09 FiO2 50 07/13/22 03:33 Weight last 48 hrs Weight 104.326 kg Physical Exam Const: NUTRITIONAL APPEARANCE: obese ORIENTATION/CONSCIOUSNESS: Yes patient obtunded HENMT: COMMON NORMALS: oropharynx normal Neck/C-Spine: COMMON NORMALS: no JVD Resp: AUSCULTATION: diminished lung sounds OTHER: BiPAP Cardio: COMMON NORMALS: no JVD, regular rhythm, S1 normal heart sound present, S2 normal heart sound present and No murmurs present (Cardio) RHYTHM: regular rhythm HEART SOUNDS: S1 normal heart sound present and S2 normal heart sound present GI: COMMON NORMALS: Normal to inspection, nondistended, normoactive bowel sounds present, Soft to palpation and non-tender PALPATION: Yes Soft to palpation Extremity: COMMON NORMALS: no joint enlargement GENERAL: Yes edema (1-2+) Skin: OTHER: Reported sacral pressure ulcer, currently unable to examine. Data 07/13/22 02:05 07/13/22 02:05 A&P Assessment and plan (1) Respiratory failure with hypoxia and hypercapnia: Hypoxic and hypercapnic respiratory failure with acute decompensation of diastolic CHF. Goals of care as discussed with family include no intubation, no CPR in case of cardiopulmonary arrest. Continue BiPAP support. So far had shown improvement, with noted improvement on ABGs, but was uncomfortable on BiPAP, received Ativan, now obtunded. Initial admission to ICU for closer monitoring, suctioning, respiratory support. Appears to be very sensitive to benzodiazepines. May need Precedex drip. At the moment no clear evidence of infectious process. IV Lasix. I&O, monitor weight. Repeat chemistry for renal function, electrolyte monitoring with risk of electrolyte abnormality. Monitor on telemetry with risk of arrhythmia. No reports of chest pain. Complete troponin EKG series for assessment for any cardiac ischemia. TTE from March, EF 50-55%. Mild pulmonary hypertension. Moderately increased size of both atria. Trace MVR. Trace AVR. Consider repeating limited TTE depending on further findings, clinical course. (2) Congestive heart failure: Acute decompensation of diastolic CHF as above. With respiratory failure as above, pleural effusions, peripheral edema. (3) Acute kidney injury superimposed on CKD: Possibly mildly creatinine 1.3, although recently creatinines with fluctuation. Unclear baseline. Possibly secondary to fluid overload, treat CHF as above. Additionally appears to be taking NSAIDs, hold and will discontinue meloxicam. (4) Pressure ulcer: Reported pressure sacral ulcer, not visualized currently due to respiratory failure. Please reassess. Reported by her daughter. (5) Acute encephalopathy: Some lethargy, although reportedly was more awake earlier. Acute metabolic encephalopathy secondary to hypercapnia. Discomfort on BiPAP, received Ativan. Continue BiPAP support. Looks to be very sensitive to benzodiazepines. N.p.o. for now. Plan Hypernatremia: Mild hyponatremia, follow-up chemistry requested. Dementia Incontinence Morbid obesity Paroxysmal A-fib, on anticoagulation with Eliquis, for now we will switch to Lovenox. Resume metoprolol once a bit more awake, otherwise may need to transition to IV metoprolol. DM2: Requesting Accu-Cheks, consistent carb diet. Mild SSI. HLD HTN Other medical problems Please reconcile medications once she is able to resume oral intake. Discussed with ER physician, reviewed ER documentation. Attestations Medical Necessity Statement*: Admission of over 2 midnights anticipated for assessment of management of hypoxic and hypercapnic failure with decompensated CHF, acute encephalopathy. Coding Level of Care Code Critical Care >/= 30 minutes Critical care time (in minutes): 35 The high probability of a clinically significant, sudden or life threatening deterioration, as referenced in this documentation, required my full and direct attention, intervention and personal management. The critical care time shown is in addition to time spent performing any reported separately billable procedures and includes the following: [x] Data and vital sign review and interpretation [x] Patient assessment, examination and intervention [x] Medication orders and management [x] Patient/Family updates as able [x] Care Coordination and Documentation. Diagnoses Respiratory failure with hypoxia and hypercapnia J96.91; J96.92 Congestive heart failure I50.9 Acute kidney injury superimposed on CKD N17.9; N18.9 Pressure ulcer L89.90 Acute encephalopathy G93.40
[2022-07-13 06:30] LABS: Glucose Point of Care 98 mg/dL (70-110)
[2022-07-13] MEDS: pantoprazole 40 mg SDV IVP (06:42)
[2022-07-13 08:20] LABS: Troponin 5 6HR 25.39 ng/L (0-10)
[2022-07-13 08:25] LABS: Troponin 5 6HR Delta -2.61 ng/L (0-12)
[2022-07-13] MEDS: enoxaparin 100 mg/mL Syringe SUBCUT ×2 (08:34→20:49)
--- NOTE | 2022-07-13 09:11 | ECG_ITS ---
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 Measurements Intervals [place] Rate: 64 P: 0 CO: 0 QRS: 88 QRSD: 91 T: 48 QT: 403 QTc: 416 Interpretive Statements ATRIAL FIBRILLATION POSSIBLE ANTERIOR MYOCARDIAL INFARCTION , PROBABLY OLD [30 ms Q WAVE IN V3/V4, OR R < 0.2 mV IN V4] ABNORMAL RHYTHM ECG Compared to ECG 07/13/2022 02:15:09 Left-axis deviation no longer present Intraventricular conduction delay no longer present Myocardial infarct finding still present Electronically Signed On 07-13-2022 16:46:19 CDT by Silvestre Gardner M.D. [id number]
--- NOTE | 2022-07-13 09:38 | PC.PHAR ---
pts daughter earl [phone] verified pts medications-notes are made in the pharmacy comments
--- NOTE | 2022-07-13 10:52 | PC.CHAP ---
Pastoral Care Encounter/Spiritual Assessment Type of Contact [] Declined retort setter visit [] Patient/Family/Request visit [] Outpatient visit [] Follow-up visit [] Physician referral [] Code/Alert [x] Routine visit [] Staff referral [] Actively dying [] Patient sleeping [x] Family support [] [] Out of room [] Palliative care [] [] Receiving care in room [] Pre-surgical visit [] Trauma [] Long length of stay [x] ICU visit [] Other: Relational/Emotional Strength [] Patient feels connected with others/family/visitors/staff [] Distress [] Loneliness/isolation [] Abandonment Spirituality of Patient [] Person of Dayanara [] Attends Lutheran of their Dayanara [] Believes in Prayer [] Reads Bible or Hindu materials [] There are Spiritual issues to be addressed Felled Seam [employer] Interventions [x] Prayer [] Active listening [] Non-anxious presence [] Spiritual/emotional support [] Crisis/trauma care [] Spiritual counseling [] Bereavement support [] Provided bereavement packet [] Provided Bible/devotional materials [] Provided toy/stuffed animal, coloring book to patient or family member [] Provided Communion [] Anointing/[place] [] Salvation [x] Completed spiritual assessment [] Other: Impact on Illness or Injury [] Angry [] Fearful [] Anxious [] Often cries [] Exhaustion [] Unable to work [] Unable to attend restorationism [] Unable to walk/stand [] Unable to read [] Unable to drive [] Unable to eat/drink [] Unable to sleep [] Unable to be with family [] Patient intubated [] Other: Summary Time spent with patient
[2022-07-13] MEDS: ipratropium-albuterol 3 mL Neb INHALATION ×4 (12:38→23:21)
[2022-07-13 14:36] LABS: ABG PH Result 7.35 (7.35-7.45); Alveolar-Arterial Oxygen Gradi 13.9 mmHg (5-10); Base Excess ABG 9.2 mmol/L (-2.0-2.0); Blood Gas Operator Identificat AMH; Blood Gas Sample Site Brachial, left; Blood Gas Sample Type Arterial; Carboxyhemoglobin 1.6 %THgb (0.4-20.1); HCO3 ABG 36.9 mmol/L (22-26); Ionized Calcium Level - ABG 1.3 mmol/L (1.1-1.4); Methemoglobin 1.1 % (0.4-1.5); Oxygen Device BIPAP; Oxygen Saturation ABG 98.7; Potassium Level - ABG 3.9 mmol/L (3.5-5.0); Total Hemoglobin 11.1 g/dL (12-16)
[2022-07-13 14:37] LABS: ABG PCO2 66.6 mmHg (35-45)
[2022-07-13] MEDS: dexmedetomidine 400 MCG in sodium chloride 0.9% (100 ml) 100 ML IV (15:38)
[2022-07-13] MEDS: haloperidol inj 5 mg/mL INJ 1 mL 1 MG IM (15:59)
--- NOTE | 2022-07-13 17:15 | P.MISC_ITS ---
Miscellaneous Note Purpose of Documentation: Overnight labs and H&P have been reviewed. Patient continues to be on a BiPAP. Repeated ABG with improving PCO2. Patient is trying to pull off the BiPAP, still agitated and confused. We will start Precedex infusion for better tolerability. Add budesonide scheduled ventil ation.
--- NOTE | 2022-07-13 17:17 | PC.NURSE ---
Patient very confused and agitated this shift. Continues to rip off bipap, cardiac monitoring, BP cuff, yelling at staff. Making medical management impossible Alerted Dr. Serrato notified, received orders for precedex, haldol, and ativan.
[2022-07-13] MEDS: budesonide 0.5 mg/2 mL Neb INHALATION (20:38)
[2022-07-13] MEDS: dexmedetomidine 400 MCG in sodium chloride 0.9% (100 ml) 100 ML 18.99 MCG IV (22:25)
[2022-07-14] VITALS (36 sets, daily range): BP systolic 85–170; BP diastolic 45–142; PULSE 68–155; RESP 13–31; TEMP 36.9; O2SAT 92–100
[2022-07-14] MEDS: ipratropium-albuterol 3 mL Neb INHALATION ×6 (03:08→23:45)
[2022-07-14 03:16] LABS: Basophils % 0.4 %; Eosinophils % 0.5 %; Hemoglobin 9.9 g/dL (11.5-15.3); Lymphocytes # 0.7 10^3/uL (0.8-4.8); Lymphocytes % 12.5 %; Mean Corpuscular Hemoglobin 29.3 pg (28.0-34.0); Mean Corpuscular Volume 97.6 fl (81-99); Mean Platelet Volume 12.3 fL (7.4-10.4); Monocytes # 0.6 10^3/uL (0.2-0.9); Monocytes % 10.5 %; Neutrophils # 4.31 10^3/uL (1.8-7.7); Neutrophils % 75.7 %; Nucleated Red Blood Cells % 0 %; Platelet Count 132 10^3/cmm (130-400); Red Blood Count 3.38 10^6/uL (4.1-5.3); Red Cell Distribution Width 14.6 % (12.1-15.1); White Blood Count 5.7 10^3/uL (4.0-10.0)
[2022-07-14 03:28] LABS: Anion Gap 17.1 (5-19); Blood Urea Nitrogen 34 mg/dL (8-23); Calcium 8.9 mg/dL (8.5-10.5); Carbon Dioxide 35 mmol/L (22-29); Chloride 102 mmol/L (98-107); Glucose 114 mg/dL (65-115); Osmolality Calculated 318 mOsm/kg (285-295); Potassium 4.1 mmol/L (3.5-5.1); Sodium 150 mmol/L (136-145)
[2022-07-14] MEDS: FUROsemide 10 mg/mL SDV 10mL 60 MG IVP ×2 (03:46→16:25)
[2022-07-14] MEDS: pantoprazole 40 mg SDV IVP (05:37)
[2022-07-14] MEDS: levothyroxine 100 mcg Tablet PO (05:38)
[2022-07-14] MEDS: budesonide 0.5 mg/2 mL Neb INHALATION ×2 (08:06→19:57)
[2022-07-14] MEDS: enoxaparin 100 mg/mL Syringe SUBCUT (08:23)
--- NOTE | 2022-07-14 16:32 | P.PN_ITS ---
Subjective Subjective: Patient is more alert and awake today. She is answering simple questions. Attempts to have a conversation with her daughter. Her daughter and are at bedside today. Daughter reports that patient has had worsening dementia since 2019. She typically is supposed to wear oxygen [id number], however at nighttime she gets confused, sundown's and does not keep her oxygen on. At this present time patient does able to answer most simple questions, she is coherent. Intermittent tachycardia with heart rate as high as 150. Medications: Reviewed: Yes Vitals/I&O/Wt Last Vital Signs Temp 98.4 F 07/14/22 01:00 Pulse 103 H 07/14/22 16:17 Resp 22 H 07/14/22 16:09 BP 108/79 07/14/22 16:00 Pulse Ox 96 07/14/22 16:09 O2 Del Method 07/14/22 16:09 O2 Flow Rate 3 07/14/22 16:09 FiO2 40 07/14/22 11:10 07/14/22 07/14/22 07/14/22 06:59 14:59 22:59 Intake Total 144.402 / 247.587 0 / 0 Output Total 1150 / 3100 Balance -1005.598 / -2852.413 0 / 0 Weight last 48 hrs Weight 94.166 kg Weight 104.326 kg Physical Exam Narrative: General: Currently on BiPAP. HEENT: PERRLA, pupils bilaterally equal and reactive, pallors not present Chest: Bilateral conducted sounds from the BiPAP. CVS: S1-S2 regular, no murmurs, no tachycardia, no gallops, no rubs Abdomen: Soft, nontender, no organomegaly, bowel sounds present Neuro: No focal deficits, moving all extremities in bed, restless on BiPAP Urinary Catheter Management: Simon: Cath Placed During This Visit: yes Reason for Continuing Indwelling Catheter: Accurate Measurement of Urinary Output in Critically Ill Patients Urinary Catheter Date of Insertion: 07/13/22 Urinary Catheter Time of Insertion: 10:32 Data 07/14/22 02:41 07/14/22 02:41 A&P Assessment and plan (1) Respiratory failure with hypoxia and hypercapnia: Hypoxic and hypercapnic respiratory failure with acute decompensation of diastolic CHF and COPD exacerbation. ABG is improving with BiPAP support. pH is normalized, CO2 at 66, based on normalization of pH expect this to be patient's baseline. Patient has been on BiPAP for most part of the day, however is becoming restless and uncomfortable on it. Since her mentation is much improved today we will go ahead and take her off of BiPAP. We will obtain an overnight oximetry study to see if patient will qualify for ho me BiPAP. We will encourage use of BiPAP at least consistently at nighttime in an effort to replicate in the hospital what patient will be feasibly able to do at nighttime. Discussed goals of care with the family. Continuous BiPAP support during the day and night is certainly not a feasible long-term goal for the patient. We will take off the BiPAP in the daytime, should patient show signs of worsening hypercapnia off of a few hours off of BiPAP, family would likely consider hospice as it is not feasible for her to keep a BiPAP on at home at all times. Hopefully she will improve significantly such that she is only requiring nighttime BiPAP. At the moment no clear evidence of infectious process. Change IV Lasix to 40 mg p.o. twice daily Resume dysphagia diet, may be advanced as tolerated by the patient. Resume home dose of Lyrica 100 mg p.o. twice daily Resume home dose of metoprolol 50 p.o. twice daily given that she is now trending towards tachycardia. Recent echo from March 2022 with normal LVEF, LVEF of 50 to 55%, mild pulmonary hypertension structurally normal valves. (2) Congestive heart failure: Acute decompensation of diastolic CHF as above. Transition IV to p.o. Lasix (3) Acute kidney injury superimposed on CKD: Hold holding off on NSAIDs Creatinine stable at 1.4 (4) Pressure ulcer: Reported pressure sacral ulcer (5) Acute encephalopathy: Related to hypercapnia. Now improving. Hold off on any benzodiazepines as patient appears to be extremely sensitive. Precedex infusion if needed. As needed Haldol. Plan Hypernatremia: Stable we will Dementia: Worsening since 2019, alayna shen's easily Paroxysmal A-fib, on anticoagulation with Eliquis HLD HTN Attestations Medical Necessity Statement*: Take off BiPAP today, assess for mentation, respiratory status, attempt to use nighttime BiPAP only in order to replicate what patient would be physically able to do at home. All updates discussed with daughter and at bedside Coding Level of Care Code Critical Care >/= 30 minutes Diagnoses Respiratory failure with hypoxia and hypercapnia J96.91; J96.92 Congestive heart failure I50.9 Acute kidney injury superimposed on CKD N17.9; N18.9 Pressure ulcer L89.90 Acute encephalopathy G93.40
[2022-07-14] MEDS: lanolin oint 7 gm 1 APPLIC TOPICAL (17:00)
[2022-07-14] MEDS: metoprolol tartrate 50 mg Tablet PO (17:00)
[2022-07-14] MEDS: pregabalin 100 mg Capsule PO (17:05)
[2022-07-15] VITALS (27 sets, daily range): BP systolic 113–171; BP diastolic 64–103; PULSE 77–118; RESP 17–33; TEMP 36.7–37.2; O2SAT 89–100
[2022-07-15 02:53] LABS: Basophils % 0.2 %; Eosinophils # 0.1 10^3/uL (0.0-0.8); Eosinophils % 0.8 %; Hematocrit 33.8 % (37.0-47.0); Hemoglobin 10.7 g/dL (11.5-15.3); Lymphocytes # 1.1 10^3/uL (0.8-4.8); Mean Corpuscular HGB Conc 31.7 g/dL (30.0-36.0); Mean Corpuscular Hemoglobin 29.9 pg (28.0-34.0); Mean Corpuscular Volume 94.4 fl (81-99); Mean Platelet Volume 12.2 fL (7.4-10.4); Monocytes % 11.2 %; Neutrophils # 6.35 10^3/uL (1.8-7.7); Neutrophils % 74.3 %; Nucleated Red Blood Cells % 0 %; Platelet Count 160 10^3/cmm (130-400); Red Blood Count 3.58 10^6/uL (4.1-5.3); White Blood Count 8.6 10^3/uL (4.0-10.0)
[2022-07-15 03:10] LABS: Blood Urea Nitrogen 28 mg/dL (8-23); Calcium 8.9 mg/dL (8.5-10.5); Carbon Dioxide 37 mmol/L (22-29); Chloride 97 mmol/L (98-107); Glucose 89 mg/dL (65-115); Osmolality Calculated 313 mOsm/kg (285-295); Sodium 149 mmol/L (136-145)
[2022-07-15] MEDS: apixaban 5 mg Tablet PO (05:21)
[2022-07-15] MEDS: levothyroxine 100 mcg Tablet PO (05:21)
[2022-07-15] MEDS: pantoprazole 40 mg SDV IVP (05:31)
[2022-07-15] MEDS: ipratropium-albuterol 3 mL Neb INHALATION ×3 (08:32→16:09)
[2022-07-15] MEDS: budesonide 0.5 mg/2 mL Neb INHALATION (08:32)
[2022-07-15] MEDS: metoprolol tartrate 50 mg Tablet PO ×2 (08:42→17:21)
[2022-07-15] MEDS: pregabalin 100 mg Capsule PO ×2 (08:43→17:21)
[2022-07-15] MEDS: FUROsemide 40 mg Tablet PO ×2 (10:15→15:06)
[2022-07-15] MEDS: potassium chloride ER 20 mEq Tablet 60 MEQ PO (10:15)
[2022-07-15 13:22] LABS: ABG PCO2 53.7 mmHg (35-45); ABG PH Result 7.49 (7.35-7.45); Arterial Blood Gas Hematocrit 38.8 % (37-47); Base Excess ABG 14.8 mmol/L (-2.0-2.0); Blood Gas Allen Test Pos; Blood Gas Operator Identificat MONRO; Blood Gas Sample Site Radial, left; Blood Gas Sample Type Arterial; Carboxyhemoglobin 1.5 %THgb (0.4-20.1); Fractionated Inspired Oxygen 0.4 %; HCO3 ABG 40.5 mmol/L (22-26); HGB O2 Sat 94.4 % (95-100); Ionized Calcium Level - ABG 1.2 mmol/L (1.1-1.4); Methemoglobin 0.7 % (0.4-1.5); Oxygen Device NC; Oxygen Saturation ABG 96.6; Potassium Level - ABG 3.5 mmol/L (3.5-5.0); Total Hemoglobin 12.6 g/dL (12-16)
--- NOTE | 2022-07-15 16:00 | P.DS_ITS ---
Discharge Providers Date of Admission: 07/13/22 04:52 Date of Discharge: August 12, 2022 Attending Provider at Admission: Johnathan Xie Attending Provider at Discharge: Nellie Serrato MD Primary Care Provider: Deondre Lowery DO Diagnoses at Discharge Discharge Diagnosis (1) Respiratory failure with hypoxia and hypercapnia: Status: Acute (2) Congestive heart failure: Status: Acute (3) Acute kidney injury superimposed on CKD: Status: Acute (4) Pressure ulcer: Status: Acute (5) Acute encephalopathy: Status: Acute Reason for Visit Reason for Visit: respiratory distress Hospital Course Hospital Course 87-year-old lady with history of diastolic CHF, paroxysmal A-fib, on anticoagulation, dementia, pressure ulcer, diabetes, HTN, morbid obesity was brought into the ER for evaluation due to shortness of breath, normally on 2 L of oxygen, in ER requiring 6 L, on assessment noted hypoxic and hypercapnic respiratory failure ABG 7.21/93.5/69.9/36.9.? Chest x-ray with increasing areas of right greater than left mid to lower lung atelectasis, edema or pneumonia with effusions. Hospital course as below: (1) Respiratory failure with hypoxia and hypercapnia: Hypoxic and hypercapnic respiratory failure with acute decompensation of diastolic CHF and COPD exacerbation. ABG improved with BiPAP support. pH is normalized, CO2 at 66, based on normalization of pH expect this to be patient's baseline. Currently on 40 mg p.o. twice daily at discharge, received iv diuresis in the hospital Extensively discussed goals of care with the family and patient herself when she was more awake and alert.? Given her multiple comorbidities, age, dependence on Bipap for large part of the day which is likely not going to be feasible at home, main goal to be comfortable and return home to live with her , she was transitioned to hospice. She is being discharged today transition to home hospice. (2) Congestive heart failure: Acute decompensation of diastolic CHF as above. Transition IV to p.o. Lasix (3) Acute kidney injury superimposed on CKD: Hold holding off on NSAIDs Creatinine stable at 1.4 (4) Pressure ulcer: Reported pressure sacral ulcer Continue local wound care (5) Acute encephalopathy: Related to hypercapnia.? Now resolved. Family confirms patient is now at baseline mentation. Physical Exam Narrative: General: No acute distress, elderly frail woman lying in bed. HEENT: PERRLA, pupils bilaterally equal and reactive, pallors not present Chest: Scattered creps to auscultation, much improved over yesterday's exam CVS: S1-S2 regular, no murmurs, no tachycardia, no gallops, no rubs Abdomen: Soft, nontender, no organomegaly, bowel sounds present Neuro: No focal deficits, no facial deformity, AO x3, power 5/5 in all limbs Urinary Catheter Management: Simon: Cath Placed During This Visit: yes, but has since been removed by the nurse Reason for Continuing Indwelling Catheter: Accurate Measurement of Urinary Output in Critically Ill Patients Urinary Catheter Date of Insertion: 07/13/22 Urinary Catheter Time of Insertion: 10:32 Date Urinary Catheter Removed: 07/15/22 Time Urinary Catheter Discontinued: 17:50 Discharge Data Studies Completed and Pending Completed Studies During Hospitalization Category Date Time Status XR chest 1V portable [id number] Stat Exams 07/13/22 02:03 Completed Radiology Impressions Chest X-Ray 07/13/22 02:03 IMPRESSION: Increasing areas of [id number]-left mid to lower lung atelectasis, edema or pneumonia with effusions. Laboratory Results WBC 8.6 10^3/uL (4.0-10.0) 07/15/22 02:34 RBC 3.58 10^6/uL (4.1-5.3) L 07/15/22 02:34 Hgb 10.7 g/dL (11.5-15.3) L 07/15/22 02:34 Hct 33.8 % (37.0-47.0) L 07/15/22 02:34 MCV 94.4 fl (81-99) 07/15/22 02:34 MCH 29.9 pg (28.0-34.0) 07/15/22 02:34 MCHC 31.7 g/dL (30.0-36.0) D 07/15/22 02:34 RDW 15.0 % (12.1-15.1) 07/15/22 02:34 Plt Count 160 10^3/cmm (130-400) 07/15/22 02:34 MPV 12.2 fL (7.4-10.4) H 07/15/22 02:34 Neut % (Auto) 74.3 % 07/15/22 02:34 Lymph % (Auto) 13.0 % 07/15/22 02:34 [place] % (Auto) 11.2 % 07/15/22 02:34 Eos % (Auto) 0.8 % 07/15/22 02:34 Baso % (Auto) 0.2 % 07/15/22 02:34 Neut # (Auto) 6.35 10^3/uL (1.8-7.7) 07/15/22 02:34 Lymph # (Auto) 1.1 10^3/uL (0.8-4.8) 07/15/22 02:34 [place] # (Auto) 1.0 10^3/uL (0.2-0.9) H 07/15/22 02:34 Eos # (Auto) 0.1 10^3/uL (0.0-0.8) 07/15/22 02:34 Baso # (Auto) 0.0 10^3/uL (0.0-0.1) 07/15/22 02:34 Nucleated RBC % (auto) 0 % 07/15/22 02:34 Nucleated RBCs # 0.0 /100WBC 07/15/22 02:34 PT 14.80 SECONDS (12.1-14.9) 07/13/22 02:05 INR 1.13 (0.8-1.2) 07/13/22 02:05 Specimen Type Arterial 07/15/22 13:10 Sample Site Radial, left 07/15/22 13:10 ABG pH 7.49 (7.35-7.45) H 07/15/22 13:10 ABG pCO2 53.7 mmHg (35-45) H 07/15/22 13:10 ABG pO2 73.0 mmHg (80.0-100.0) L 07/15/22 13:10 ABG HCO3 40.5 mmol/L (22-26) H 07/15/22 13:10 ABG O2 Saturation 96.6 07/15/22 13:10 ABG Base Excess 14.8 mmol/L (-2.0-2.0) H 07/15/22 13:10 Peyman Test Pos 07/15/22 13:10 A-a O2 Gradient Not Reportable 07/15/22 13:10 Hematocrit 38.8 % (37-47) 07/15/22 13:10 Hgb O2 Saturation 94.4 % (95-100) L 07/15/22 13:10 Carboxyhemoglobin 1.5 %THgb (0.4-20.1) 07/15/22 13:10 Methemoglobin 0.7 % (0.4-1.5) 07/15/22 13:10 Total Hemoglobin 12.6 g/dL (12-16) 07/15/22 13:10 Sodium 149.0 mmol/L (131-143) H 07/15/22 13:10 Potassium 3.5 mmol/L (3.5-5.0) 07/15/22 13:10 Glucose 112.0 mg/dL (70-115) 07/15/22 13:10 Ionized Calcium 1.2 mmol/L (1.1-1.4) 07/15/22 13:10 O2 Delivery Device Nc 07/15/22 13:10 O2 Liters/Min 5.0 % 07/15/22 13:10 FiO2 0.4 % 07/15/22 13:10 PEEP 7.0 cmH20 07/13/22 04:20 Director Audience Marketing ID Monro 07/15/22 13:10 Sodium 149 mmol/L (136-145) H 07/15/22 02:34 Potassium 3.0 mmol/L (3.5-5.1) L 07/15/22 02:34 Chloride 97 mmol/L (98-107) L 07/15/22 02:34 Carbon Dioxide 37 mmol/L (22-29) H 07/15/22 02:34 Anion Gap 18.0 (5-19) 07/15/22 02:34 BUN 28 mg/dL (8-23) H 07/15/22 02:34 Creatinine 1.3 mg/dL (0.5-0.9) H 07/15/22 02:34 GFR Calculation Not Reportable 07/15/22 02:34 Glucose 89 mg/dL (65-115) 07/15/22 02:34 POC Glucose 98 mg/dL (70-110) 07/13/22 06:27 Calculated Osmolality 313 mOsm/kg (285-295) H 07/15/22 02:34 Calcium 8.9 mg/dL (8.5-10.5) 07/15/22 02:34 Total Bilirubin 0.4 mg/dL (0.15-1.2) 07/13/22 02:05 AST 22 U/L (0-32) 07/13/22 02:05 ALT 7 U/L (0-33) 07/13/22 02:05 Alkaline Phosphatase 94 U/L (35-105) 07/13/22 02:05 Troponin T Baseline 28 ng/L (0-10) H 07/13/22 02:05 Troponin T 120 Minute 25.09 ng/L (0-10) H 07/13/22 03:52 Delta Troponin T -2.91 ABS# (0-10) L 07/13/22 03:52 Troponin T Hi Sens 6Hr 25.39 ng/L (0-10) H 07/13/22 07:42 Troponin T Hi Sens 6Hr Delta -2.61 ng/L (0-12) L 07/13/22 07:42 NT-Pro-B Natriuret Pep 8945 pg/mL (0-450) H 07/13/22 02:05 Total Protein 6.8 g/dL (6.6-8.7) 07/13/22 02:05 Albumin 4.2 g/dL (3.5-5.2) 07/13/22 02:05 Globulin 2.6 g/dL (1.3-4.6) 07/13/22 02:05 Influenza Type A Ag negative (Negative) 07/13/22 02:25 Influenza Type B Ag negative (Negative) 07/13/22 02:25 SARS-CoV-2 Ag (Rapid) negative (Negative) 07/13/22 02:25 Vitals Last Vital Signs Temp 98.0 F 07/15/22 05:00 Pulse 117 H 07/15/22 17:00 Resp 20 H 07/15/22 17:00 BP 158/78 07/15/22 14:00 Pulse Ox 93 07/15/22 17:00 O2 Del Method Nasal Cannula 07/15/22 16:10 O2 Flow Rate 4 07/15/22 16:10 FiO2 40 07/15/22 11:08 Discharge Plan Discharge Patient Disposition: Hospice - Home Condition: Stable Prescriptions: New ipratropium-albuterol 0.5 mg-3 mg(2.5 mg base)/3 mL Solution For Nebulization 3 ml inhalation Q4H.RESPIRATORY 30 Days Qty: 30 0RF Continued hydrocodone-acetaminophen 5-325 mg tablet 1 tab PO Q4H PRN (Reason: Pain) levothyroxine [Synthroid] 100 mcg tablet 100 mcg PO QAM multivitamin [One Daily Multivitamin] Tablet 1 tab PO QAM glucosamine sulfate [Glucosamine] 500 mg tablet 500 mg PO BID docusate sodium [Stool Softener] 100 mg capsule 200 mg PO QAM albuterol sulfate [ProAir HFA] 90 mcg/actuation HFA aerosol inhaler 2 - 4 puff inhalation Q4H PRN (Reason: Shortness Of Breath) cholecalciferol (vitamin D3) 50 mcg (2,000 unit) capsule 50 mcg PO QAM (DME) oxygen-air delivery systems Device See Rx Instructions .Route Rx Instructions: As directed furosemide 20 mg tablet 20 mg PO BID Qty: 180 3RF ondansetron 4 mg tablet,disintegrating 4 mg translingual Q4H PRN (Reason: nausea) Qty: 5 0RF Rx Instructions: Dissolve 1 tablet under tongue every 4 hours PRN for nausea bisacodyl 10 mg suppository 10 mg OR DAILY PRN (Reason: constipation) Qty: 5 0RF Rx Instructions: 1 suppository per rectum every day PRN for constipation. atropine 1 % drops 4 drp sublingual Q4H PRN (Reason: secretions) Qty: 5 0RF Rx Instructions: 4 drops SL q 4 hours PRN for terminal congestion/excessive secretions. Eliquis 5 mg tablet 5 mg PO QAM amlodipine 10 mg tablet 10 mg PO QAM metoprolol tartrate 50 mg tablet 50 mg PO BID pregabalin 100 mg capsule 100 mg PO BID meloxicam 7.5 mg tablet 7.5 mg PO QAM tramadol 50 mg tablet 50 mg PO BID losartan 50 mg tablet 50 mg PO QAM No Action morphine concentrate 100 mg/5 mL (20 mg/mL) solution 20 mg sublingual DIRECTED PRN (Reason: Pain/SOB) 14 Days Qty: 30 0RF Rx Instructions: 0.25ml-1ml q1H PRN may increase to 0.5ml-1ml Q1H PRN lorazepam 2 mg/mL concentrate 2 mg sublingual Q4H PRN (Reason: Anxiety/Seizure) Qty: 30 0RF Rx Instructions: 0.25ml-1ml q4H PRN Anxiety/Seizure Start 0.25ml may increase to 0.5ml-1ml q4H Discharge Orders: Discharge Order (Routine); Ordered 07/15/22 Ordered By: Nellie Serrato Referrals: [facility] [place]] [facility] [place] [facility] ([facility]) [Outside] Discharge Diet: Usual diet Discharge Activity: Resume usual activity Patient Instructions: Hospice Care, Using Oxygen at Home (DC) Activity Restrictions/Additional Instructions: hospice care Discharge Attestations Time Spent in Discharge Care*: greater than 30 min Quality Metrics Clinical Quality Measures [ No reported AMI, CVA or VTE this stay] Coding Level of Care Code Acute Code for Chg Fwd Diagnoses Respiratory failure with hypoxia and hypercapnia J96.91; J96.92 Congestive heart failure I50.9 Acute kidney injury superimposed on CKD N17.9; N18.9 Pressure ulcer L89.90 Acute encephalopathy G93.40
--- NOTE | 2022-07-15 17:38 | PC.NURSE ---
Patient all set up for hospice at home. [facility] case management set it all up. Simon removed. All IV's removed. Family aware and involved in decisions. Called [place] at hospice to go to their home to set equipment up. EMS in route to facility at this time to pick patient up
--- NOTE | 2022-07-15 18:00 | PC.NURSE ---
patient left via EMS at 1757
[2022-08-04 08:59] LABS: ABG PCO2 82.3 mmHg (35-45)
[2022-08-04 09:00] LABS: ABG PCO2 93.5 mmHg (35-45)
== END 2022-07-15 17:57 | disposition expired | DRG 291 ==
LOC: ER 04:50 → ICU 04:53
PROVIDERS: Admitting Provider Internal Medicine; Emergency Provider Emergency Medicine; PCP Electrodiagnostic Medicine; Visit Provider Student in an Organized Health Care Education/Training Program
DX: I50.31 Acute diastolic (congestive) heart failure (principal); J96.21 Acute and chronic respiratory failure with hypoxia; J96.22 Acute and chronic respiratory failure with hypercapnia; G93.40 Encephalopathy, unspecified; N17.9 Acute kidney failure, unspecified; I48.0 Paroxysmal atrial fibrillation; Z79.01 Long term (current) use of anticoagulants; F03.90 Unspecified dementia, unspecified severity, without behavioral disturbance, psychotic disturbance, mood disturbance, and anxiety; E66.01 Morbid (severe) obesity due to excess calories; Z68.37 Body mass index [BMI] 37.0-37.9, adult; Z99.81 Dependence on supplemental oxygen; L89.159 Pressure ulcer of sacral region, unspecified stage; I12.9 Hypertensive chronic kidney disease with stage 1 through stage 4 chronic kidney disease, or unspecified chronic kidney disease; E11.22 Type 2 diabetes mellitus with diabetic chronic kidney disease; N18.9 Chronic kidney disease, unspecified; Z66 Do not resuscitate; M51.36 Other intervertebral disc degeneration, lumbar region; Z90.5 Acquired absence of kidney; Z96.659 Presence of unspecified artificial knee joint; Z87.891 Personal history of nicotine dependence
CPT/HCPCS: 36415; 36416; 36600; 51702; 71045; 80048; 80051; 80053; 82330; 82803; 82805; 82962; 83880; 84484; 85025; 85610; 87426; 87804; 93005; 94640; 94660; 94664; 96372; 96374; 96375; 96376; 99291; C9113; J1630; J1650; J1940; J2060; J7050; J7626